=== PATIENT | male | born 1970 | race Caucasian/White ===

== ENCOUNTER 2018-10-15 10:03 | Outpatient (CLI) | payer MEDICAID, SELFPAY ==
[2018-10-15 14:39] LABS: CREATININE 0.91 mg/dL (0.70-1.30); Potassium 4.2 mmol/L (3.5-5.1)
== END 2018-10-15 10:23 ==
PROVIDERS: PCP Family Medicine; Visit Provider Family Medicine
DX: I10 Essential (primary) hypertension (principal)
CPT/HCPCS: 36415; 82565; 84132

== ENCOUNTER 2019-07-30 16:00 | Outpatient (REF) | payer MEDICAID, SELFPAY | END 2019-07-30 16:20 | LOC: LBN 16:00 | PROVIDERS: PCP Family Medicine; Visit Provider Family Medicine | DX: L02.11 Cutaneous abscess of neck (principal); L98.9 Disorder of the skin and subcutaneous tissue, unspecified | CPT/HCPCS: 87070; 87205 ==

== ENCOUNTER 2019-08-01 12:34 | Outpatient (REF) | payer MEDICAID, SELFPAY ==
--- NOTE | 2019-08-01 11:55 | SKI_PTH ---
PATIENT: Tyler Duffy LOC: [facility] U#:[id number] AGE/SX: 48/M ROOM: RE08/01/[address]: GRIS Buckley : 1970 BED: DIS: 08/01/2019 SPEC #: [id number] RECD: 08/01/19 12:39 STATUS: SEAN REQ #: [id number] ROSALIA: 08/01/19 11:[address]: Sierra Franco DEPT: Surgical Specimen RECD BY: Maeve Hernandez ENTERED: 08/01/19 12:40 SP TYPE: BRENT MADDOX DR: Hipolito Vela MD Tissues: 1 - SKIN BIOPSY(SHAVE/PUNCH) Procedures: GROSS AND MICRO LEVEL 4 SPECIAL STAIN 1 Comments: [id number]
== END 2019-08-01 12:54 ==
LOC: LBN 12:34
PROVIDERS: PCP Family Medicine; Visit Provider Physical Therapy Assistant
DX: L98.8 Other specified disorders of the skin and subcutaneous tissue (principal); R22.1 Localized swelling, mass and lump, neck
CPT/HCPCS: 88305; 87070; 87205; 88312

== ENCOUNTER 2019-08-15 11:31 | Outpatient (CLI) | payer MEDICAID, SELFPAY ==
--- NOTE | 2019-08-15 08:50 | DI.RAD_ITS ---
EXAM: XR KNEE LT 3V AP,LAT,NIKOLAI CLINICAL HISTORY: PAIN TECHNIQUE: COMPARISON: No exams were available for comparison FINDINGS: Three views were obtained. There is prominent enthesophyte of the superior pole of the patella. No other bony abnormality seen. No gross joint effusion seen. Cartilaginous joint spaces appear fairly well maintained. IMPRESSION:
== END 2019-08-15 11:51 ==
PROVIDERS: PCP Family Medicine; Visit Provider Student in an Organized Health Care Education/Training Program
DX: M25.562 Pain in left knee (principal); S89.92XA Unspecified injury of left lower leg, initial encounter; X58.XXXA Exposure to other specified factors, initial encounter
CPT/HCPCS: 73562

== ENCOUNTER 2019-08-19 06:25 | Day surgery (SDC) | payer MEDICAID, SELFPAY ==
[2019-08-19 06:28] VITALS: BP 146/94; PULSE 80; RESP 16; TEMP 36.5; O2SAT 94
[2019-08-19] MEDS: Lactated Ringers 1,000 ML 80 ML IV (07:04)
--- NOTE | 2019-08-19 07:25 | PDOC.DSDIS_ITS ---
Discharge Plan Disposition Patient Disposition: HOME Condition: Good Discharge Details Reason For Visit: (L) KNEE MMT Attending Provider: Basim Grigsby Primary Care Provider: Hipolito Vela Home Meds and New Rx's Prescriptions: New acetaminophen 500 mg tablet 1,000 mg PO Q8H PRN (Reason: pain) Qty: 60 RF: 3 ibuprofen 600 mg tablet 600 mg PO TID PRNQty: 60 RF: 3 oxycodone 5 mg tablet 5 mg PO Q6H PRN PRNQty: 12 RF: 0 Continued sildenafil (pulm.hypertension) 20 mg tablet 20 - 100 mg PO DAILY PRN (Reason: sexual activity) Qty: 30 RF: 5 diltiazem HCl 120 mg capsule,extended release 24hr 120 mg PO DAILY Qty: 90 RF: 3 citalopram 40 mg tablet 40 mg PO DAILY Qty: 90 RF: 3 Discharge Instructions Stand Alone Forms: [facility] Knee Arthroscopy Referrals: Basim Grigsby MD [ [facility] STAFF PHYSICIAN] - Equipment/Supplies: Partial Weight Bearing Crutches Activity:: Activity as Tolerated Remove Dressings/Wound Care:: 72 hours Shower/Bathe:: 72 hours Diet:: As Tolerated Discharge Orders Discharge Orders: Discharge Order (Routine); Ordered 08/19/19 Ordered By: Basim Grigsby DS: Diagnosis Discharge Diagnosis (1) Internal derangement of left knee: Status: Acute
[2019-08-19] MEDS: ceFAZolin 2 GM/50 ML BAG IVPB (07:26)
[2019-08-19] MEDS: EPINEPHrine 1 MG/ML AMP pres-free (07:48)
[2019-08-19] MEDS: Bupivacaine 0.5% Pres-Free 30 ML VIAL (08:16)
[2019-08-19] MEDS: methylPREDNISolone ACETATE 80 MG/ML VIAL (08:16)
[2019-08-19 08:26] VITALS: BP 120/67; PULSE 73; RESP 19; TEMP 36.7; O2SAT 99
[2019-08-19 08:30] VITALS: BP 121/78; PULSE 75; RESP 20; TEMP 36.7; O2SAT 99
[2019-08-19 08:35] VITALS: BP 126/79; PULSE 78; RESP 20; TEMP 36.7; O2SAT 99
[2019-08-19] MEDS: Ketorolac 30 MG/ML VIAL IVP (08:44)
[2019-08-19 08:50] VITALS: BP 134/87; PULSE 81; RESP 17; TEMP 37; O2SAT 96
[2019-08-19] MEDS: oxyCODONE 5 MG TAB PO (09:22)
[2019-08-19 09:55] VITALS: BP 141/89; PULSE 69; RESP 18; TEMP 36.2; O2SAT 95
--- NOTE | 2019-08-20 07:50 | W.PM.OP ---
Date of service: 08/19/19 Time of Service: 08:50 Operative Note Operative Note DATE OF PROCEDURE: 08/19/19 PRE-OP DIAGNOSIS: Left Knee Medial Meniscus Tear POST-OP DIAGNOSIS: other (Left Knee Medial Meniscus and Lateral Meniscus Tear) PROCEDURE: Left Knee Arthroscopic Medial and Lateral Partial Menisectomies SURGEON: Basim Grigsby ANESTHESIA: GETA ESTIMATED BLOOD LOSS: 5 PATHOLOGY: none sent COMPLICATIONS: None Patient was transported to: PACU Patient's condition: stable Indications: I have seen Brock in clinic for symptoms of a meniscus tear. This was confirmed based on history and exam findings. Nonoperative measures were exhausted but disability and pain persisted. I discussed knee arthroscopy with meniscal intervention with the patient. I reviewed the risks of the procedure to include, but not limited to, bleeding, infection, pain, stiffness, damage to nerves or vessels, recurrence, blood clot. Despite these risks, the patient elected to proceed. Findings: A diagnostic arthroscopy was performed with the following findings: Suprapatellar Pouch: No significant inflammation, No loose bodies Medial Compartment: Complex medial meniscal tear, Intact meniscal root, No significant chondromalacia or signs of arthritis, No loose bodies Notch: ACL and PCL were intact Lateral Compartment: Fraying of the underside of the posterior horn, Intact meniscal root, No significant chondromalacia or signs of arthritis, No loose bodies Patellofemoral Compartment: Mild Grade I chondromalacia, No apparent patellar maltracking Procedure Description: Brock was greeted in the preoperative holding area where the correct side was identified and marked. The consent was reviewed with the patient and signed. The history and physical was updated. All questions were answered. Brock was taken back to the operating room. The patient was placed into the supine position on the operating room table. A nonsterile tourniquet was placed high onto the leg but not used. All bony prominences were well padded. Prophylactic antibiotics in the form of Cefazolin were administered. The left leg was then prepped with Chloraprep and draped in a standard fashion with stockinette and extremity drape. A timeout to confirm correct identity, side and site, procedure, allergies, anesthesia, and medical concerns was performed. The leg was placed into a pneumatic leg hess, SPIDER2. A standard lateral portal was made at the lateral border of the patella tendon in line with the inferior pole of the patella, soft spot. The skin and deep tissue was incised sharply and the blunt trochar was inserted atraumatically. A diagnostic arthroscopy was performed and the findings are listed above. The suprapatellar pouch had no significant inflammatory change. The patellofemoral articulation showed only mild chondromalacia of the patella as well as good tracking. The lateral gutter had no loose bodies and the medial gutter had no loose bodies. The knee was brought into some valgus stress in extension to open the medial compartment. A medial portal was made, localized by a spinal needle. The portal was created with an #11 blade through skin and capsule under direct visualization avoiding any meniscal injury. A probe was then inserted into the medial compartment. The medial compartment was fully inspected. The chondral surface of the tibia showed no significant chondromalacia and the surface of the femur showed no significant chondromalacia. The medial meniscus had a complex tear involving the body and posterior horn and extending into the root, but not destabilizing the root. After evaluation, the meniscus was debrided down to a stable base using a series of biters and arthroscopic pipo. It was probed afterwards to confirm that the tear had been removed and the meniscus was stable. The notch was then inspected which showed an intact ACL and an intact PCL. The leg was then brought into a figure of 4 position. The lateral compartment was fully inspected with the arthroscope and a probe. The chondral surface of the lateral femur showed no significant chondromalacia. The chondral surface of the lateral tibia showed no significant chondromalacia. The lateral meniscus had some minor fraying on the undersurface of the posterior horn, at the level of the popliteus. After evaluation, the meniscus was debrided down to a stable base using arthroscopic shaver. It was probed afterwards to confirm that the tear had been removed and the meniscus was stable. The arthroscope was brought back into the suprapatellar pouch and the leg was in full extension. The knee was thoroughly irrigated with the arthroscopic fluid on high flow and pressure. Inflow was stopped and excess fluid was removed. The wounds were closed with 4-0 Nylon. They were dressed with Xeroform, 4x4 gauze, ABD pad, Kerlix and an CONNIE wrap. A cryo-cuff was applied. The patient tolerated the procedure well and was returned to the Same Day Surgery area in a stable condition suffering no known complication.
== END 2019-08-19 10:21 | disposition home or self-care (01) ==
PROVIDERS: PCP Family Medicine; Visit Provider Student in an Organized Health Care Education/Training Program
PROC: (CPT 29870; principal; 2019-08-19 07:30)
DX: S83.232A Complex tear of medial meniscus, current injury, left knee, initial encounter (principal); S83.282A Other tear of lateral meniscus, current injury, left knee, initial encounter; X50.0XXA Overexertion from strenuous movement or load, initial encounter; M94.262 Chondromalacia, left knee; I10 Essential (primary) hypertension
CPT/HCPCS: 29880; E0114; J0171; J0690; J1040; J1885; J2001; J2405; J2704

== ENCOUNTER 2019-11-06 12:03 | Emergency (ER) | payer MEDICAID, SELFPAY ==
[2019-11-06 12:06] VITALS: BP 154/92; PULSE 96; RESP 15; TEMP 37; O2SAT 96
--- NOTE | 2019-11-06 12:10 | ED.GENADUL_ITS ---
Discharge Plan Disposition Patient Disposition: HOME Condition: Good Discharge Details Chief Complaint: Vascular Clinical Impression: Bruise Primary Care Provider: Hipolito Vela ED Provider: Waldo Atkinson Home Meds and New Rx's Prescriptions: Continued sildenafil (pulm.hypertension) 20 mg tablet 20 - 100 mg PO DAILY PRN (Reason: sexual activity) Qty: 30 RF: 5 diltiazem HCl 120 mg capsule,extended release 24hr 120 mg PO DAILY Qty: 90 RF: 3 citalopram 40 mg tablet 40 mg PO DAILY Qty: 90 RF: 3 acetaminophen 500 mg tablet 1,000 mg PO Q8H PRN (Reason: pain) Qty: 60 RF: 3 ibuprofen 600 mg tablet 600 mg PO TID PRNQty: 60 RF: 3 oxycodone 5 mg tablet 5 mg PO Q6H PRN PRNQty: 12 RF: 0 Discharge Instructions Instructions: Contusion in Adults (ED) Additional Instructions: At this time there is no evidence of blood clot in your leg. I suspect that you might have hit it lightly at some point and this caused the bruising. This will likely go away with time. If you notice any worsening of your symptoms, or any new symptoms such as swelling, pain, vomiting, diarrhea, fever, chills, shortness of breath, chest pain, numbness, weakness, or fainting , please return immediately to the emergency department for reevaluation. Please follow up with your primary care provider as soon as possible for reassessment and reevaluation. As always, it was a pleasure participating in your medical care today. Referrals: Hipolito Vela [Primary Care Provider] - Medical Decision Making This is a 49-year-old male who presents today for evaluation of right lower extremity bruising. He states that for the last 2 to 3 days he has had some mild bruising on the medial aspect of his right knee. He has had no pain in this area. He does not recall hitting it. He does have some known varicose veins. He has had no associated chest pain or new shortness of breath. He denies any hemoptysis. He denies any pleuritic chest pain. He denies any pain in the calf or knee. He denies any unilateral swelling. He states that his was concerned that this may be a DVT, and came in for further evaluation. Patient denies any other complaints or modifying factors at this time. He denies any history of DVT or PE. Denies DVT risk factors such as recent long car rides, immobilization, recent surgery, prior history of DVT or PE, family history of PE or DVT, morbid obesity, exogenous estrogen and smoking, hemoptysis, history of cancer. Physical exam demonstrates mild bruising on the medial aspect of his right knee, there is notable varicosities in this area as well. No redness warmth or unilateral swelling. No symptoms suggestive of cellulitis, petechiae, necrotizing fasciitis or other abnormality. No osseous pain whatsoever for movement or palpation of the knee. Signs and symptoms appear clinically consistent with mild bruising likely secondary to an unknown bump or trauma. Out of an abundance of precaution we will get an ultrasound of the right lower extremity to rule out superficial phlebitis or DVT. Patient states he does have a history of previous phlebitis in the past. With no chest pain shortness of breath or other respiratory symptoms, no indication for further radiographic imaging of the chest or work-up. Symptoms are inconsistent with pulmonary embolism at this time. 1:33 PM Ultrasound results per radiology show no evidence of DVT. Signs and symptoms clinically consistent with mild contusion, and inconsistent with thrombophlebitis, blood clot, or bleeding diatheses. At this time feel he can be safely discharged home with close follow-up. Discussed red flags which return. I have extensively reviewed the treatment plan and discharge instructions with the patient. I have addressed all patient concerns at this time. The patient was made aware of what symptoms to monitor for that would warrant a return to the emergency department. Discussed the plan with the patient, they demonstrate verbal understanding and agreement with our assessment and plan at this time. IMPRESSION: Negative right lower extremity ultrasound. No evidence of DVT or superficial thrombophlebitis.. HPI General Date/Time Provider Initiated Documentation: 11/06/19 12:04 . HPI Narrative: This is a 49-year-old male who presents today for evaluation of right lower extremity bruising. He states that for the last 2 to 3 days he has had some mild bruising on the medial aspect of his right knee. He has had no pain in this area. He does not recall hitting it. He does have some known varicose veins. He has had no associated chest pain or new shortness of breath. He denies any hemoptysis. He denies any pleuritic chest pain. He denies any pain in the calf or knee. He denies any unilateral swelling. He states that his was concerned that this may be a DVT, and came in for further evaluation. Patient denies any other complaints or modifying factors at this time. He denies any history of DVT or PE. Denies DVT risk factors such as recent long car rides, immobilization, recent surgery, prior history of DVT or PE, family history of PE or DVT, morbid obesity, exogenous estrogen and smoking, hemoptysis, history of cancer. Related Data Home Medications Medication Instructions Recorded Confirmed citalopram 40 mg tablet 40 mg PO DAILY #90 tab 01/20/19 11/06/19 sildenafil (pulm.hypertension) 20 20 - 100 mg PO DAILY PRN #30 tab 02/12/19 11/06/19 mg tablet diltiazem HCl 120 mg 120 mg PO DAILY #90 cap 03/25/19 11/06/19 capsule,extended release 24 hr acetaminophen 1,000 mg PO Q8H PRN #60 tab 08/19/19 11/06/19 ibuprofen 600 mg PO TID PRN #60 tab 08/19/19 11/06/19 oxycodone 5 mg PO Q6H PRN PRN #12 tab 08/19/19 11/06/19 Previous Rx's Medication Instructions Recorded citalopram 40 mg tablet 40 mg PO DAILY #90 tab 01/20/19 sildenafil (pulm.hypertension) 20 20 - 100 mg PO DAILY PRN #30 tab 02/12/19 mg tablet diltiazem HCl 120 mg 120 mg PO DAILY #90 cap 03/25/19 capsule,extended release 24 hr acetaminophen 1,000 mg PO Q8H PRN #60 tab 08/19/19 ibuprofen 600 mg PO TID PRN #60 tab 08/19/19 oxycodone 5 mg PO Q6H PRN PRN #12 tab 08/19/19 Allergies Allergy/AdvReac Type Severity Reaction Status Date / Time mirtazapine AdvReac Severe PROFOUND Verified 11/06/19 12:11 BRADYCARDIA General Stated Complaint: Vascular BEVERLY: 3 Review of Systems All systems reviewed & are unremarkable except as noted in HPI and below PFSH Medical History (Updated 11/06/19 @ 13:32 by Waldo Atkinson DO) Depressed bipolar disorder Essential hypertension Knee pain, left (Resolved) Schizophrenia Skin lesion of neck (Acute) Surgical History (Updated 08/29/19 @ 18:47 by Nidia Berman) History of local excision of skin lesion (Acute) left side of neck Jul 2019 Incision, Tendon Sheath right rotator cuff repair and biceps tendosis. Removal of foreign body from eye Status post arthroscopy of left knee (Acute 08/19/19) Status post medial and lateral partial meniscectomies UPPP (Uvulopalatopharyngoplasty) Social History Smoking/Tobacco Use Status: Current every day Tobacco Type: smokeless tobacco Quit status: has quit before Second Hand Exposure: Yes Alcohol Intake: current Alcohol Intake frequency: a few times a week Alcohol type: beer Drug use: Never Substance use type: does not use Caregiver/Support person: No Household members: spouse and children Housing: house Communication Needs: None Do you need help understanding health information?: Never Pets and animals: Yes Pets and animals: dog(s) Sexually active: Yes Do you think of yourself as: straight/heterosexual Current gender identity: male What is your relationship status?: How often do you talk on the phone with friends or family?: three or more times per week How often do you get together with friends or relatives?: once per week How often do you attend baptist or sikh services?: decline to answer Do you belong to any clubs or organized social groups?: no Panel score (0-1 are the most socially isolated patients): 2 What type of physical activity do you participate in: none Gypsy/Scientology: Gnosticism Special gypsy needs: No Seatbelt use: never Helmet use: No Drive intox 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 3.ENT: Atraumatic external nose and ears. Moist MM. Neck: Symmetric, trachea midline, No thyromegaly. 4.CVS: +S1/S2, No murmurs or gallops. Peripheral pulses 2+ and equal in all extremities. Brisk capillary refill in all extremities. 5.RESP: Unlabored respiratory effort. Clear to auscultation bilaterally. No wheezes rales or rhonchi 6.GI: Soft, Nontender/Nondistended, No hepatosplenomegaly. No guarding or rebound. 7.MSK: Normocephalic/Atraumatic, Extremities w/o deformity or ttp No cyanosis or clubbing, Normal movement of all extremitie. There is evidence of mild varicose veins on the patient's right lower extremity, primarily centralized around the right knee. There is minimal bruising, no evidence of petechiae. No redness or warmth suggestive of infection. No swelling or pitting edema. Calves are equal and symmetric in circumference. 8.Skin: Warm, Dry. No rashes or lesions. 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 Sensation grossly intact, no focal neurologic deficits. 10.Psych: (AAO) x3. Appropriate mood and affect Course Vital Signs Vital signs: Vital Signs Temperature 37 C 11/06/19 12:06 Pulse 96 H 11/06/19 12:06 Respiratory Rate 15 11/06/19 12:06 Blood Pressure 154/92 H 11/06/19 12:06 Pulse Oximetry 96 11/06/19 12:06 Temperature 37 C 11/06/19 12:06 Temperature Source Temporal Artery Scan 11/06/19 12:06 Pulse 96 H 11/06/19 12:06 Respiratory Rate 15 11/06/19 12:06 Blood Pressure 154/92 H 11/06/19 12:06 Blood Pressure Position Sitting 11/06/19 12:06 Pulse Oximetry 96 11/06/19 12:06 Oxygen Delivery Method Room Air 11/06/19 12:06 Oxygen Flow Rate 0 11/06/19 12:06 Pain Level 2 11/06/19 12:06
[2019-11-06 12:12] VITALS: RESP 16
--- NOTE | 2019-11-06 13:05 | DI.US_ITS ---
EXAM: US LOWER EXTREMITY VENOUS RT CLINICAL HISTORY: bruising, r/o DVT. TECHNIQUE: Right lower extremity venous ultrasound performed using grayscale, color-flow, and spectr al Doppler analysis. COMPARISON: No exams were available for comparison FINDINGS: The right common femoral, femoral and popliteal veins demonstrate normal compressibility, augmentatio n, and color Doppler. The posterior tibial veins are patent. No saphenous vein thrombosis or other s uperficial venous thrombosis is seen. There are tortuous superficial vessels in the proximal, medial lower leg in the area of the bruising. No hematoma or Mena's cyst is seen. IMPRESSION: Negative right lower extremity ultrasound. No evidence of DVT or superficial thrombophlebitis.. DATA REPOSITORY:
[2019-11-06 13:41] VITALS: BP 157/99; PULSE 91; RESP 16; TEMP 36.8; O2SAT 97
== END 2019-11-06 13:44 | disposition home or self-care (01) ==
PROVIDERS: Emergency Provider Student in an Organized Health Care Education/Training Program; PCP Family Medicine
DX: S80.11XA Contusion of right lower leg, initial encounter (principal); X58.XXXA Exposure to other specified factors, initial encounter; I83.91 Asymptomatic varicose veins of right lower extremity; I10 Essential (primary) hypertension
CPT/HCPCS: 99284; 93971

== ENCOUNTER 2020-05-20 11:15 | Emergency (ER) | payer MEDICAID, SELFPAY ==
[2020-05-20 11:20] VITALS: BP 162/99; PULSE 98; RESP 20; TEMP 36.8; O2SAT 97
--- NOTE | 2020-05-20 11:26 | ED.GENADUL_ITS ---
Discharge Plan Disposition Patient Disposition: HOME Discharge Details Clinical Impression: Leg pain Primary Care Provider: Hipolito Vela ED Provider: Eligio Granado Home Meds and New Rx's Prescriptions: Continued diltiazem HCl 120 mg capsule,extended release 24hr 120 mg PO DAILY Qty: 90 RF: 3 sildenafil (pulm.hypertension) 20 mg tablet 20 - 100 mg PO DAILY PRN (Reason: sexual activity) Qty: 30 RF: 5 citalopram 40 mg tablet 40 mg PO DAILY Qty: 90 RF: 3 acetaminophen 500 mg tablet 1,000 mg PO Q8H PRN (Reason: pain) Qty: 60 RF: 3 ibuprofen 600 mg tablet 600 mg PO TID PRNQty: 60 RF: 3 Discharge Instructions Instructions: Leg Pain (ED) Additional Instructions: Ultrasound and x-ray are unremarkable. Please watch for new or worsening symptoms and return to the ER for any concerns. Rest, elevate, cool compresses every 2 hours for 20 minutes. [id number] medications such as Tylenol and/or Motrin as directed for discomfort. You may also benefit from wearing an Jean Claude wrap or compression stockings. I do recommend reaching out your primary care provider later today or tomorrow for prompt outpatient reevaluation. Medical Decision Making 49-year-old gentleman presents with atraumatic left lower leg pain. There is no erythema, warmth, ecchymosis. He is afebrile. This is not with any joint. No clinical suspicion of gout, cellulitis, or deformity. This appears to be primarily along the anterior aspect, less likely DVT. Given his pain is atraumatic we discussed options such as x-ray and ultrasound. I do not believe that laboratory values will be of any value here. Patient is agreeable to this plan. Clinically this appears to be more soft tissue swelling-injury. X-ray of left tib-fib read by radiology is unremarkable. Ultrasound of the left lower extremity unremarkable per radiology. Patient made aware of the imaging findings. He is relieved and has no additional questions or concerns. We discussed resting, elevating, cool compresses, [id number] Tylenol and/or Motrin. We also discussed wrapping with an Jean Claude wrap or using compression stockings to help with the mild swelling. He was encouraged to return to the ER for new or worsening symptoms, otherwise reach out to his primary care provider in the next 24 hours for outpatient reevaluation. Medical Records Medical records reviewed: Yes I reviewed the patient's medical records. HPI General Mode of arrival: ambulatory . Date/Time Provider Initiated Documentation: 05/20/20 11:15 . Limitations to Documentation: no limitations . Information obtained by: patient . HPI Narrative: This is a 49-year-old gentleman who reports past medical history that includes bipolar disorder, hypertension, schizophrenia, presenting to the ER today reporting left lower higgins pain for the past 3 to 4 days. 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 He reports the area has had some swelling, typically worse after a full day of work. Denies any erythema, warmth, chest pain, shortness of breath, numbness, tingling, weakness. Patient has not taken any medication for his discomfort. Initially thought he just pulled a muscle but because it has not gone away yet, his brought up the idea that this could be a blood clot. Patient denies history of DVT or PE. Pain is mild at rest but worse with movement or bearing weight. Related Data Home Medications Medication Instructions Recorded Confirmed diltiazem HCl 120 mg 120 mg PO DAILY #90 cap 03/25/19 05/20/20 capsule,extended release 24 hr acetaminophen 1,000 mg PO Q8H PRN #60 tab 08/19/19 05/20/20 ibuprofen 600 mg PO TID PRN #60 tab 08/19/19 05/20/20 sildenafil (pulm.hypertension) 20 20 - 100 mg PO DAILY PRN #30 tab 12/26/19 05/20/20 mg tablet citalopram 40 mg tablet 40 mg PO DAILY #90 tab 02/10/20 05/20/20 Previous Rx's Medication Instructions Recorded diltiazem HCl 120 mg 120 mg PO DAILY #90 cap 03/25/19 capsule,extended release 24 hr acetaminophen 1,000 mg PO Q8H PRN #60 tab 08/19/19 ibuprofen 600 mg PO TID PRN #60 tab 08/19/19 sildenafil (pulm.hypertension) 20 20 - 100 mg PO DAILY PRN #30 tab 12/26/19 mg tablet citalopram 40 mg tablet 40 mg PO DAILY #90 tab 02/10/20 Allergies Allergy/AdvReac Type Severity Reaction Status Date / Time mirtazapine AdvReac Severe PROFOUND Verified 05/20/20 11:22 BRADYCARDIA General Stated Complaint: Orthopedic BEVERLY: 3 Review of Systems Constitutional Constitutional: Denies fever(s) and Denies weakness Cardiovascular Cardiovascular: Denies chest pain and Denies dyspnea Respiratory Respiratory: Denies cough and Denies dyspnea Musculoskeletal Musculoskeletal: Denies numbness and Denies tingling Integumentary/Breasts Skin/Breast: Denies erythema and Denies rash Neurologic Neurologic: Denies numbness, Denies tingling and Denies weakness [facility] Medical History Depressed bipolar disorder Essential hypertension Knee pain, left Schizophrenia Skin lesion of neck Surgical History History of local excision of skin lesion left side of neck Jul 2019 Incision, Tendon Sheath right rotator cuff repair and biceps tendosis. Removal of foreign body from eye Status post arthroscopy of left knee (08/19/19) Status post medial and lateral partial meniscectomies UPPP (Uvulopalatopharyngoplasty) Family History Mother Alcohol abuse Father Depression Sister No problems noted. Sister Alcohol abuse Maternal Grandfather Alcohol abuse Paternal Grandfather No problems noted. Maternal Grandmother Diabetes Alcohol abuse Paternal Grandmother No problems noted. Social History Smoking/Tobacco Use Status: Current every day Tobacco Type: smokeless tobacco Quit status: has quit before Second Hand Exposure: Yes Smoking risk assessment performed?: Yes Alcohol Intake: current Alcohol Intake frequency: a few times a week Alcohol type: beer Drug use: Never Substance use type: does not use Caregiver/Support person: No Household members: spouse and children Housing: house Communication Needs: None Do you need help understanding health information?: Never Pets and animals: Yes Pets and animals: dog(s) Sexually active: Yes Do you think of yourself as: straight/heterosexual Current gender identity: male What is your relationship status?: How often do you talk on the phone with friends or family?: three or more times per week How often do you get together with friends or relatives?: once per week How often do you attend mormonism or oriental orthodox services?: decline to answer Do you belong to any clubs or organized social groups?: no Panel score (0-1 are the most socially isolated patients): 2 What type of physical activity do you participate in: none Gypsy/Mandaeism: Religion Special gypsy needs: No Seatbelt use: never Helmet use: No Drive intox or ride w/intox 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 Do you feel safe at home: Yes Do you feel safe in your relationship?: Yes Exam Const General: cooperative, healthy appearing, comfortable and no acute distress Orientation: alert and awake [facility] Head: normal to inspection, normocephalic and atraumatic Mouth: moist mucous membranes Eyes Conjunctivae: conjunctivae normal Neck Neck: normal visual inspection, trachea midline and supple Resp Effort & Inspection: normal respiratory effort and able to speak in complete sentences Auscultation: clear to auscultation bilaterally Cardio Rate: regular rate Rhythm: regular rhythm Skin General skin exam: no rashes or lesions noted Neuro General: patient alert, patient awake, moves all extremities and no focal motor deficits Gait: normal gait Motor: muscle tone normal throughout and strength 5/5 throughout Sensory Exam: no sensory deficits noted Extrem General: full ROM, capillary refill normal, no calf tenderness and other (Negative Homans' sign bilaterally) Right lower extremity: normal to inspection, full ROM and normal capillary refill Left lower extremity: normal capillary refill Upper/lower leg/hip images: 1. Mild swelling and tenderness. No erythema, ecchymosis. Noncircumferential. Skin is intact. Without warmth, induration, fluctuance. Neuro, vascular, tendon intact. Normal pedal pulse. Normal capillary refill Psych Appearance: grossly normal Mental Status: mental status grossly normal Course Vital Signs Vital signs: Vital Signs Temperature 36.8 C 05/20/20 11:20 Pulse 98 H 05/20/20 11:20 Respiratory Rate 20 05/20/20 11:20 Blood Pressure 162/99 H 05/20/20 11:20 Pulse Oximetry 97 05/20/20 11:20 Temperature 36.8 C 05/20/20 11:20 Temperature Source Temporal Artery Scan 05/20/20 11:20 Pulse 98 H 05/20/20 11:20 Respiratory Rate 20 05/20/20 11:20 Blood Pressure 162/99 H 05/20/20 11:20 Blood Pressure Position Sitting 05/20/20 11:20 Pulse Oximetry 97 05/20/20 11:20 Oxygen Delivery Method Room Air 05/20/20 11:20 Oxygen Flow Rate 0 05/20/20 11:20 Pain Level 5 05/20/20 11:20
--- NOTE | 2020-05-20 11:30 | DI.RAD_ITS ---
EXAM: XR TIB/FIB LT CLINICAL HISTORY: pain/swelling, no injuy. TECHNIQUE: 2D digital imaging was performed COMPARISON: No exams were available for comparison FINDINGS: BONES: No acute fracture is present. No bony destructive lesion is seen. Visualized portion of knee a nd ankle joints are unremarkable. SOFT TISSUE: Normal. IMPRESSION: Unremarkable radiographs of the left tibia and fibula. DATA REPOSITORY: RADIATION DOSE DELIVERED:
--- NOTE | 2020-05-20 11:39 | DI.US_ITS ---
EXAM: US LOWER EXTREMITY VENOUS LT CLINICAL HISTORY: pain/swelling/no injury TECHNIQUE: Left lower extremity venous ultrasound performed using grayscale, color-flow, and spectra l Doppler analysis. COMPARISON: No exams were available for comparison FINDINGS: The left common femoral, femoral and popliteal veins demonstrate normal compressibility, augmentation , and color Doppler. The posterior tibial veins are patent. The saphenofemoral junction is unremarka ble. There is no evidence of a Mena cyst. The soft tissues are unremarkable. IMPRESSION: No DVT. DATA REPOSITORY:
[2020-05-20 13:04] VITALS: BP 157/103; PULSE 68; RESP 18; TEMP 36.7; O2SAT 98
== END 2020-05-20 13:18 | disposition home or self-care (01) ==
PROVIDERS: Emergency Provider Physician Assistant; PCP Family Medicine
DX: M79.662 Pain in left lower leg (principal); I10 Essential (primary) hypertension
CPT/HCPCS: 99284; 73590; 93971

== ENCOUNTER 2020-10-13 10:25 | Outpatient (REF) | payer MEDICAID, SELFPAY ==
[2020-10-13 13:48] LABS: Calculated LDL 80 mg/dL (<100); Cholesterol 147 mg/dL (<200); Glucose 97 mg/dL (74-106); HDL Cholesterol 47 mg/dL (40-60); Triglyceride 100 mg/dL (<150)
== END 2020-10-13 10:26 | disposition home or self-care (01) ==
LOC: LBN 10:25
PROVIDERS: PCP Family Medicine; Visit Provider Family Medicine
DX: E78.5 Hyperlipidemia, unspecified (principal); R73.9 Hyperglycemia, unspecified
CPT/HCPCS: 80061; 82947

== ENCOUNTER 2020-10-14 09:38 | Outpatient (CLI) | payer MEDICAID, SELFPAY ==
--- NOTE | 2020-10-14 10:45 | DI.RAD_ITS ---
EXAM: XR CERVICAL SPINE COMP 4-5V CLINICAL HISTORY: neck pain on rt side for one yEAR m54.2 cervicalgia. TECHNIQUE: 2D digital imaging was performed. COMPARISON: No exams were available for comparison FINDINGS: There is no evidence of fracture, listhesis, nor offset of the spinal laminar line. There is mild di sc space narrowing at C5-6 and C6-7 levels and anterior osteophytes at these 2 levels. On the obliqu e views there are bilateral Luschka joint osteophytes evident at C6-7. These are small-moderate size . No Luschka joint osteophytes at C5-6 level. No cervical ribs evident. No osseous lesions. IMPRESSION: Degenerative disc disease as described above. Also some facet arthropathy at C3-4 level. DATA REPOSITORY: RADIATION DOSE DELIVERED:
--- NOTE | 2020-10-14 10:45 | DI.RAD_ITS ---
EXAM: XR HIP RT COMPLETE AP PELVIS CLINICAL HISTORY: RT GROIN PAIN m25.551 pain in Rt hip. TECHNIQUE: 2D digital imaging was performed. COMPARISON: No exams were available for comparison FINDINGS: No evidence of pelvic fracture. No hip fracture. Osteophytic density seen off the superolateral asp ect of the right acetabulum measuring 9 x 8 millimeters probably nonunited apophysis. Bone density n ormal. No osseous lesions. No obvious osteoarthritic degenerative changes. Sign rib IMPRESSION: DATA REPOSITORY: RADIATION DOSE DELIVERED:
== END 2020-10-14 09:58 ==
PROVIDERS: PCP Family Medicine; Visit Provider Family Medicine
DX: M25.551 Pain in right hip (principal); M54.2 Cervicalgia; M50.322 Other cervical disc degeneration at C5-C6 level; M50.323 Other cervical disc degeneration at C6-C7 level
CPT/HCPCS: 72050; 73502

== ENCOUNTER 2021-05-30 02:53 | Outpatient (CLI) | payer MEDICAID, SELFPAY ==
[2021-05-30 13:13] LABS: Source Nasal/Nares
[2021-05-30 15:28] LABS: COVID-19 PCR Negative (Negative)
== END 2021-05-30 02:54 | disposition home or self-care (01) ==
LOC: LBO 02:54
PROVIDERS: PCP Family Medicine; Visit Provider Surgery
DX: Z20.822 Contact with and (suspected) exposure to COVID-19 (principal); Z01.818 Encounter for other preprocedural examination
CPT/HCPCS: 87635

== ENCOUNTER 2021-06-01 09:21 | Day surgery (SDC) | payer MEDICAID, SELFPAY ==
--- NOTE | 2021-06-01 06:47 | HPE_ITS ---
Date of service: 06/01/21 Time of Service: 10:26 Assessment and Plan Assessment and plan (1) Screening for colon cancer: Status: Acute Assessment and plan: The patient is here for Colonoscopy pre-op.He has no family history of colon cancer. He has not had any bowel habit changes. -Discussed colonoscopy bowel prep as well as the procedure. Discussed possible complications of the procedure to include bleeding, pain, perforation, missed small lesion/polyp, sore throat, aspiration and adverse reaction to the medications. Questions were answered to patient?s satisfaction. No guarantees were implied or given. I spent 30 minutes in reviewing the record, seeing the patient, providing patient education, answering patient's questions and documenting in the medical record. P// Colonoscopy under sedation History of Present Illness Narrative: 50 y/o male with history of HTN and depressive disorder presents for his first colonoscopy screening pre-op. He denies a family history of colon cancer. He denies any changes in bowel habits including bloody or black tarry stools, abdominal pain, diarrhea or constipation. He denies constitutional symptoms. Denies use of marijuana or any other recreational or illegal drugs. 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 He denies prior history or family history of adverse reactions or complications with anesthesia. The patient denies any history of stroke, [place], seizures, bleeding or clotting dis orders. He denies having any implanted metal in his body. There have been no changes in his health since he was seen in the office Review of Systems Cardiovascular Cardiovascular: Denies chest pain, Denies chest pain at rest, Denies irregular heart rhythm, Denies dyspnea and Denies dyspnea on exertion Respiratory Respiratory: Denies cough, Denies dyspnea and Denies dyspnea on exertion Gastrointestinal Gastrointestinal: Reports as per HPI Genitourinary Genitourinary: Denies dysuria, Denies urinary incontinence and Denies urinary urgency Endocrine Endocrine: Reports system reviewed and no additional complaints, except as documented Hematologic/Lymphatic Hematologic/Lymphatic: Denies easy bruising and Denies lymphadenopathy [facility] Active Problem List (Updated 06/01/21 @ 06:51 by Laura Mcnair MD) Schizophrenia (Chronic 09/11/07) Depressive disorder (Chronic 06/20/07) Depressed bipolar I disorder (Chronic 09/11/07) Essential hypertension with goal blood pressure less than 130/80 (Acute) Erectile 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 (Acute) Neck pain on right side (Acute) Hip pain, right (Acute) Screening for colon cancer (Acute) Bilateral carpal tunnel syndrome (Acute) Medical History (Updated 06/01/21 @ 06:51 by Laura Mcnair MD) Cardiac arrhythmia, unspecified (06/20/07) Carpal tunnel syndrome on left Complete tear of right rotator cuff (07/28/16) Contact dermatitis (06/20/07) Depressed bipolar disorder Essential hypertension Knee pain, left Medial epicondylitis, left elbow (05/25/17) Olecranon bursitis, left elbow (05/25/17) Schizophrenia Skin lesion of neck Sleep disturbance, unspecified (06/20/07) Umbilical hernia (05/22/13) Surgical History History of local excision of skin lesion left side of neck Jul 2019 Hx of shoulder surgery Incision, Tendon Sheath right rotator cuff repair and biceps tendosis. Removal of foreign body from eye Status post arthroscopy of left knee (08/19/19) Status post medial and lateral partial meniscectomies UPPP (Uvulopalatopharyngoplasty) Family History Mother Alcohol abuse Father Depression Sister No problems noted. Sister Alcohol abuse Maternal Grandfather Alcohol abuse Paternal Grandfather No problems noted. Maternal Grandmother Diabetes Alcohol abuse Paternal Grandmother No problems noted. Social History Smoking/Tobacco Use Status: Current every day Tobacco Type: cigarettes and smokeless tobacco Smokeless tobacco user: chewing tobacco Quit status: has quit before Second Hand Exposure: Yes Smoking risk assessment performed?: Yes Alcohol Intake: current Alcohol Intake frequency: a few times a week Alcohol type: beer Drug use: Never Substance use type: does not use Caregiver/Support person: No Household members: spouse and children Housing: house Communication Needs: None Do you need help understanding health information?: Never Pets and animals: Yes Pets and animals: dog(s) Sexually active: Yes Do you think of yourself as: straight/heterosexual Current gender identity: male What is your relationship status?: How often do you talk on the phone with friends or family?: three or more times per week How often do you get together with friends or relatives?: once per week How often do you attend shinto or muslim services?: 1-3 times per year Do you belong to any clubs or organized social groups?: no Panel score (0-1 are the most socially isolated patients): 2 What type of physical activity do you participate in: walking Duration: > 90 minutes/day Frequency: daily Gypsy/Mandaen: Confucianist Special gypsy needs: No Seatbelt use: never Helmet use: No Drive intox 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 Do you feel safe at home: Yes Do you feel safe in your relationship?: Yes Meds Allergies and Home Medications Allergies Allergy/AdvReac Type Severity Reaction Status Date / Time mirtazapine AdvReac Severe PROFOUND Verified 06/01/21 09:43 BRADYCARDIA Home Medications Medication Instructions Recorded Confirmed Type ibuprofen 600 mg PO TID PRN #60 tab 08/19/19 05/31/21 Rx diltiazem HCl 240 mg capsule,24 240 mg PO DAILY #90 cap 10/13/20 06/01/21 Rx hr,extended release citalopram 40 mg tablet 40 mg PO DAILY #90 tab 03/11/21 06/01/21 Rx sildenafil (pulm.hypertension) 20 20 - 100 mg PO DAILY PRN #30 tab 03/24/21 05/31/21 Rx mg tablet Exam Const General: healthy appearing and comfortable Resp Effort & Inspection: normal respiratory effort Auscultation: clear to auscultation bilaterally Cardio Rate: regular rate Rhythm: regular rhythm Heart Sounds: no click, no gallops and no murmurs
--- NOTE | 2021-06-01 06:51 | W.COLOREPORT ---
Colonoscopy Report Date of procedure: 06/01/21 Pre-op diagnosis general: Colon Cancer Screening Post-op diagnosis procedure note: same Procedure: Colonoscopy Surgeon: Laura Mcnair Anesthesia Type: General:No Airway Estimated blood loss (mL): 0 Pathology: none sent Complications: None Disposition: same day Indications: The patient is here for Colonoscopy pre-op.He has no family history of colon cancer. He has not had any bowel habit changes. -Discussed colonoscopy bowel prep as well as the procedure. Discussed possible complications of the procedure to include bleeding, pain, perforation, missed small lesion/polyp, sore throat, aspiration and adverse reaction to the medications. Questions were answered to patient?s satisfaction. No guarantees were implied or given. I spent 30 minutes in reviewing the record, seeing the patient, providing patient education, answering patient's questions and documenting in the medical record. P// Colonoscopy under sedation Prep: Miralax/Dulcolax Procedure Start Time: 10:34 Procedure End Time: 10:56 Retraction Time: 10 minutes Findings: Normal colon Procedure Description: After informed consent was obtained the patient was taken to the procedure room and placed in a left decubitous position. Monitors were applied and a time out was done. The patients name, date of , procedure, allergies to medications and metal in their body was reviewed. The patient was then sedated. Once sedated and comfortable a rectal exam was done. External exam was normal. Internal exam revealed a normal sphincter tone and no palpable masses. The prostate felt smooth. The scope was then introduced and retro-flexed. No internal hemorrhoids, polyps or masses were identified on retro-flexion. The scope was then advanced to the cecum without difficulty. The ileocecal vlave and appendiceal orifice were identified. The prep was adequate. The scope was then slowly retracted over 10 minutes back into the rectum. There were no polyps. There was no diverticulosis noted. The scope was removed and the patient was woken up and taken back to Same day surgery in stable condition. The patient tolerated the procedure well and there were no immediate complications. Follow up: The patient should follow up in 10 years unless they develop changes in bowel habits or other new gastrointestinal complaints.
--- NOTE | 2021-06-01 06:52 | W.PM.DSUDISC ---
Discharge Plan Disposition Patient Disposition: HOME Condition: Good Discharge Details Reason For Visit: Colonoscopy Attending Provider: Laura Mcnair Primary Care Provider: Hipolito Vela Home Meds and New Rx's Prescriptions: Continued diltiazem HCl 240 mg capsule,extended release 24 hr 240 mg PO DAILY Qty: 90 RF: 3 citalopram 40 mg tablet 40 mg PO DAILY Qty: 90 RF: 3 sildenafil (pulm.hypertension) 20 mg tablet 20 - 100 mg PO DAILY PRN (Reason: sexual activity) Qty: 30 RF: 5 ibuprofen 600 mg tablet 600 mg PO TID PRNQty: 60 RF: 3 Discharge Instructions Additional Instructions: Findings: Normal colonoscopy Follow up: 10 years Please call if you develop: fevers >101.5 Nausea or Vomiting Abdominal pain that is not transient Rectal bleeding that is more then a tbsp A hard abdomen and inability to pass gas DAY SURGERY UNIT POST ENDOSCOPY INSTRUCTIONS Instructions for everyone who is given Anesthesia: For your safety, please do the following for the next 24 Hours: a. Do not drive or operate dangerous equipment b. Do not drink alcohol beverages or use any recreational drugs for the first 24 hours or while taking pain medications. The medications in your body may have a reaction that can be dangerous. c. Do not make any important decisions or sign any important papers 1. Generally there are no restrictions on your activity after a day or so has gone by, but you may feel a bit fatigued for a few days. 2. After you arrive home you may have a light meal and return to a normal diet as you can tolerate it without feeling sick to your stomach. 3. After surgery, you may feel pain or discomfort. This should be only transient, but if it persists please contact your doctor. 4. If there are any questions regarding the findings of your procedure, please feel free to contact your doctor. 6. If you are unable to contact your doctor with a problem, contact the hospital at [phone]. 7. Continue all your regular medications unless directed otherwise. I understand the above instructions and have no questions. Signature of Patient or Responsible Adult Escort Date/Time Name of Responsible Adult Escort Signature of Nurse Date/Time Activity:: Activity as Tolerated Diet:: As Tolerated Discharge Orders Discharge Orders: Discharge Order (Routine); Ordered 06/01/21 Ordered By: Laura Mcnair DS: Diagnosis Discharge Diagnosis (1) Screening for colon cancer: Status: Acute
--- NOTE | 2021-06-01 07:27 | W.ANESPRE ---
General Info Date of Service Date Performed: 06/01/21 Height: 6 ft Weight: 119.862 kg Body Mass Index (BMI): 35.8 Surgical Procedure: Operation Date: 06/01/21 10:05 Proposed Procedures Side Surgeon p Aj Mcnair MD Meds Allergies and Home Medications Allergies Allergy/AdvReac Type Severity Reaction Status Date / Time mirtazapine AdvReac Severe PROFOUND Verified 06/01/21 09:43 BRADYCARDIA Home Medication Medication Instructions Recorded ibuprofen 600 mg PO TID PRN #60 tab 08/19/19 diltiazem HCl 240 mg capsule,24 240 mg PO DAILY #90 cap 10/13/20 hr,extended release citalopram 40 mg tablet 40 mg PO DAILY #90 tab 03/11/21 sildenafil (pulm.hypertension) 20 20 - 100 mg PO DAILY PRN #30 tab 03/24/21 mg tablet Current Visit Medications: Current Medications Generic Name Dose Route Start Last Admin Trade Name Freq PRN Reason Stop Dose Admin Hyoscyamine Sulfate 0.125 mg 06/01/21 06:52 Hyoscyamine 0.125 Mg Sl/Oral/Chew SL DIRECTED PRN Ringer's Solution 1,000 mls @ 80 mls/hr 06/01/21 06:00 IV 06/14/21 23:59 INFUSION SHAWNA IV Miscellaneous Supplies 1 each 06/01/21 06:00 Iv Access IV 06/14/21 23:59 DIRECTED SHAWNA Ondansetron HCl 4 mg 06/01/21 06:52 Ondansetron 4 Mg/2 Ml Vial IVP Q4H PRN PRN Nausea / Vomiting Sodium Chloride 0 ml 06/01/21 06:00 Normal Saline Flush 10 Ml Syr IV 06/14/21 23:59 PRN PRN Sodium Chloride 0 ml 06/01/21 06:00 Normal Saline 10 Ml Vial IJ 06/14/21 23:59 DIRECTED PRN Sterile Water 0 ml 06/01/21 06:00 Water,Injection,Sterile 10 Ml Vial IJ 06/14/21 23:59 DIRECTED PRN PFSH Active Problems Active Problems: Problem Status Onset Code Schizophrenia 09/11/07 F20.9 Depressive disorder 06/20/07 F32.9 Depressed bipolar I disorder 09/11/07 F31.9 Essential hypertension with goal blood pressure less than 130/80 I10 Erectile 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 N52.1 Neck pain on right side M54.2 Hip pain, right M25.551 Screening for colon cancer Z12.11 Bilateral carpal tunnel syndrome G56.03 Medical History Active Problem List (Updated 06/01/21 @ 06:51 by Laura Mcnair MD) Schizophrenia (Chronic 09/11/07) Depressive disorder (Chronic 06/20/07) Depressed bipolar I disorder (Chronic 09/11/07) Essential hypertension with goal blood pressure less than 130/80 (Acute) Erectile 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 (Acute) Neck pain on right side (Acute) Hip pain, right (Acute) Screening for colon cancer (Acute) Bilateral carpal tunnel syndrome (Acute) Medical History (Updated 06/01/21 @ 06:51 by Laura Mcnair MD) Cardiac arrhythmia, unspecified (06/20/07) Carpal tunnel syndrome on left Complete tear of right rotator cuff (07/28/16) Contact dermatitis (06/20/07) Depressed bipolar disorder Essential hypertension Knee pain, left Medial epicondylitis, left elbow (05/25/17) Olecranon bursitis, left elbow (05/25/17) Schizophrenia Skin lesion of neck Sleep disturbance, unspecified (06/20/07) Umbilical hernia (05/22/13) Surgical History Surgical History History of local excision of skin lesion left side of neck Jul 2019 Hx of shoulder surgery Incision, Tendon Sheath right rotator cuff repair and biceps tendosis. Removal of foreign body from eye Status post arthroscopy of left knee (08/19/19) Status post medial and lateral partial meniscectomies UPPP (Uvulopalatopharyngoplasty) Tobacco Smoking/Tobacco Use Status: Current every day Tobacco Type: smokeless tobacco Smokeless tobacco user: chewing tobacco Quit Status: has quit before Second hand exposure: Yes Alcohol Alcohol Intake: current Alcohol intake frequency: a few times a week Alcohol type: beer Substance Use Substance use: Never Substance use type: does not use Vital Signs and Lab Results Lab Results Blood Type / Crossmatch: No Data to Display Complete Blood Count: No Data to Display Complete Metabolic Panel: No Data to Display Liver Function Panel: No Data to Display Coagulation Panel: No Data to Display Cardiac Panel: No Data to Display Arterial Blood Gas: No Data to Display Venous Blood Gas: No Data to Display Pancreas Panel: No Data to Display Thyroid Panel: No Data to Display Infectious Disease: Coronavirus (COVID-19)(PCR) Negative (Negative) 05/30/21 10:12 05/30/21 Coronavirus 2019 Source Nasal/Nares 05/30/21 10:12 05/30/21 Blood Cultures: No Data to Display Toxicology Panel: No Data to Display Imaging and Studies Imaging and Studies Stress Test Summary: 1. Myocardial perfusion imaging: No myocardial perfusion defects noted. 2. The calculated left ventricular ejection fraction after stress: 55%. LV global systolic function is normal. No left ventricular regional motion abnormality. 3. Stress ECG conclusions: The stress ECG is negative. Patel treadmill score: 10. This score predicts a low risk of cardiac events. 4. Stress: The target heart rate was achieved. The heart rate response to stress is normal. There is a normal resting blood pressure with a hypertensive response to stress (peak SBP 256 mmHg). The patient experienced no chest pain during stress. Exercise capacity is average for age. Anesthesia Assessment and Plan Anesthesia History Personal History: No History of Anesthesia Complications Family History: No Family History of Anesthesia Complications Exercise Tolerance Exercise Tolerance: Metabolic Equivalents>4 Pertinent Negatives Pertinent Negatives: No Symptoms of GERD, No Major Pulmonary Symptoms or Complaints and No History of CVA/TIA Cardiac & Pulmonary Exam Cardiac Exam: Normal S1/S2 Heart Sounds Pulmonary Exam: Clear Bilateral Breath Sounds Implantable Cardiac Device Does patient have a Pacemaker or an ICD?: No Airway Exam Known Difficult Airway: No Mallampati Class: 1 Mouth Opening: Normal (> 3cm) Thyromental Distance: Greater than 3 cm Neck Range of Motion: Full ROM Neck Circumference: Normal Teeth Condition: Normal Dentition ASA Classification ASA Score: ASA 2 Emergency Case?: No NPO Status NPO Status: NPO Clears >2 hours, Solids >8 hours Anesthesia Plan Resuscitation Status: Full Code Anesthesia Technique: General Anesthesia Airway Planned: Natural Airway Monitors Used: Standard Monitors
[2021-06-01 09:46] VITALS: BP 157/99; PULSE 83; RESP 16; TEMP 36; O2SAT 98
[2021-06-01] MEDS: Lactated Ringers 1,000 ML 80 ML IV (10:10)
[2021-06-01 10:27] VITALS: BMI 35.8
[2021-06-01 11:06] VITALS: BP 121/69; PULSE 79; RESP 16; TEMP 36.2; O2SAT 96
--- NOTE | 2021-06-01 11:20 | W.ANESPOSTOP ---
Postoperative Evaluation Date, Time and Location Date Performed: 06/01/21 Time Performed: 11:06 Patient Location: Day Surgery Unit Vital Signs Most Recent Imported Vital Signs: Most Recent Vital Signs Temp Pulse Resp BP Pulse Ox 36.2 C L 79 16 121/69 96 06/01/21 11:06 06/01/21 11:06 06/01/21 11:06 06/01/21 11:06 06/01/21 11:06 Pain Score Most Recent Pain Score: Most Recent Pain Score Pain Level 0 06/01/21 11:06 Assessment Mental Status: Awake (Alert & Oriented to Patient Baseline) Airway and Respiratory Function: Patent airway with normal (patient baseline) respiratory exam Cardiovascular Function: Hemodynamically Stable Hydration Status: Adequately Hydrated Nausea & Vomiting: No Nausea or Vomiting Pain: Pt. Denies Any Pain Peripheral Nerve Block: Patient did not receive a nerve block
[2021-06-01 11:37] VITALS: BP 134/88; PULSE 63; RESP 16; TEMP 36.4; O2SAT 96
== END 2021-06-01 11:56 | disposition home or self-care (01) ==
LOC: SUR 09:22
PROVIDERS: PCP Family Medicine; Visit Provider Surgery
PROC: 0DJD8ZZ Inspection of Lower Intestinal Tract, Via Natural or Artificial Opening Endoscopic (ICD-10-PCS; CPT 45378; principal; 2021-06-01 10:00)
DX: Z12.11 Encounter for screening for malignant neoplasm of colon (principal); F32.A Depression, unspecified; I10 Essential (primary) hypertension
CPT/HCPCS: 45378; J2704

== ENCOUNTER 2021-07-18 01:26 | Outpatient (CLI) | payer MEDICAID, SELFPAY ==
[2021-07-18 11:33] LABS: Source Nasal/Nares
[2021-07-18 15:47] LABS: COVID-19 PCR Negative (Negative)
== END 2021-07-18 01:27 | disposition home or self-care (01) ==
LOC: LBO 01:26
PROVIDERS: PCP Family Medicine; Visit Provider Student in an Organized Health Care Education/Training Program
DX: Z20.822 Contact with and (suspected) exposure to COVID-19 (principal)
CPT/HCPCS: 87635

== ENCOUNTER 2021-07-20 07:22 | Day surgery (SDC) | payer MEDICAID, SELFPAY ==
[2021-07-20] VITALS (9 sets, daily range): BP systolic 116–148; BP diastolic 60–98; PULSE 65–80; RESP 16–20; TEMP 36.4–36.6; O2SAT 92–98; BMI 35.8
--- NOTE | 2021-07-20 07:25 | PDOC.DSDIS_ITS ---
Discharge Plan Disposition Patient Disposition: HOME Condition: Good Discharge Details Reason For Visit: Left carpal and cubital tunnel syndromes Attending Provider: Basim Grigsby Primary Care Provider: Hipolito Vela Home Meds and New Rx's Prescriptions: New hydrocodone-acetaminophen 5-325 mg tablet 1 tab PO Q6H PRN (Reason: severe pain) Qty: 6 RF: 0 acetaminophen 500 mg tablet 500 mg PO Q6H PRN (Reason: pain) Qty: 60 RF: 2 ibuprofen 600 mg tablet 600 mg PO TID PRN (Reason: pain) Qty: 60 RF: 0 Continued diltiazem HCl 240 mg capsule,extended release 24 hr 240 mg PO DAILY Qty: 90 RF: 3 citalopram 40 mg tablet 40 mg PO DAILY Qty: 90 RF: 3 sildenafil (pulm.hypertension) 20 mg tablet 20 - 100 mg PO DAILY PRN (Reason: sexual activity) Qty: 30 RF: 5 Discontinued ibuprofen 600 mg tablet 600 mg PO TID PRNQty: 60 RF: 3 Discharge Instructions Additional Instructions: Carpal and Cubital Tunnel Decompression Discharge Instructions Activity: You should stay in the sling for the first 2 weeks. You may come out of the sling for gentle motion and hygiene but should largely remain in the sling to allow the incision site to heal. Gentle motion of the elbow, hand, wrist, and fingers is okay and encouraged after the first few days, but no repetitive activities nor heavy lifting. You may apply ice. Medications: - You should take Tylenol and Ibuprofen around the clock. - You have been prescribed Hydrocodone for breakthrough pain. Dressings: - The initial surgical dressing should stay in place for 3 days. It may then be removed and kept clean and dry. You should cover with a light gauze dressing. - You may shower after 3 days and get the wound wet. Follow-up: 10 days Stand Alone Forms: Calista Cruz Tunnel Release Referrals: Basim Grigsby MD [ [facility] STAFF PHYSICIAN] - Equipment/Supplies: Sling Activity:: Elevate Remove Dressings/Wound Care:: 72 hours Shower/Bathe:: 72 hours Diet:: As Tolerated Discharge Orders Discharge Orders: Discharge Order (Routine); Ordered 07/20/21 Ordered By: Nidia Berman DS: Diagnosis Discharge Diagnosis (1) Left carpal tunnel syndrome: Status: Acute (2) Cubital tunnel syndrome on left: Status: Acute
--- NOTE | 2021-07-20 07:35 | W.ANESPRE ---
General Info Date of Service Date Performed: 07/20/21 Height: 6 ft Weight: 119.748 kg Body Mass Index (BMI): 35.8 Surgical Procedure: Operation Date: 07/20/21 09:55 Proposed Procedures Side Surgeon p Wrist ECTR, cubital tunnel decompression,poss. transposition Left Basim Grigsby MD Meds Allergies and Home Medications Allergies Allergy/AdvReac Type Severity Reaction Status Date / Time mirtazapine AdvReac Severe PROFOUND Verified 07/20/21 07:32 BRADYCARDIA Home Medication Medication Instructions Recorded diltiazem HCl 240 mg capsule,24 240 mg PO DAILY #90 cap 10/13/20 hr,extended release citalopram 40 mg tablet 40 mg PO DAILY #90 tab 03/11/21 sildenafil (pulm.hypertension) 20 20 - 100 mg PO DAILY PRN #30 tab 03/24/21 mg tablet acetaminophen 500 mg PO Q6H PRN #60 tab 07/20/21 hydrocodone-acetaminophen 1 tab PO Q6H PRN #6 tab 07/20/21 ibuprofen 600 mg PO TID PRN #60 tab 07/20/21 Current Visit Medications: Current Medications Generic Name Dose Route Start Last Admin Trade Name Freq PRN Reason Stop Dose Admin Acetaminophen 650 mg 07/20/21 07:25 Acetaminophen 325 Mg Tab PO Q4H PRN PRN Hydrocodone Bitart/Acetaminophen 0 tab 07/20/21 07:25 Hydrocodone 5/Acetaminophen 325 Tab PO Q3H PRN PRN Pain Ringer's Solution 1,000 mls @ 80 mls/hr 07/20/21 06:00 IV 08/18/21 23:59 INFUSION SHAWNA Cefazolin Sodium/Dextrose 2 gm in 50 mls @ 100 mls/hr 07/20/21 06:00 Ancef Duplex IVPB 08/18/21 23:59 PREOP SHAWNA IV Miscellaneous Supplies 1 each 07/20/21 06:00 Iv Access IV 08/18/21 23:59 DIRECTED SHAWNA Sodium Chloride 0 ml 07/20/21 06:00 Normal Saline Flush 10 Ml Syr IV 08/18/21 23:59 PRN PRN Sodium Chloride 0 ml 07/20/21 06:00 Normal Saline 10 Ml Vial IJ 08/18/21 23:59 DIRECTED PRN Sterile Water 0 ml 07/20/21 06:00 Water,Injection,Sterile 10 Ml Vial IJ 08/18/21 23:59 DIRECTED PRN PFSH Active Problems Active Problems: Problem Status Onset Code Left carpal tunnel syndrome G56.02 Normal colonoscopy ~05/2021 Cubital tunnel syndrome on left G56.22 Schizophrenia 09/11/07 F20.9 Depressive disorder 06/20/07 F32.9 Depressed bipolar I disorder 09/11/07 F31.9 Essential hypertension with goal blood pressure less than 130/80 I10 Erectile 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 N52.1 Neck pain on right side M54.2 Hip pain, right M25.551 Screening for colon cancer Z12.11 Bilateral carpal tunnel syndrome G56.03 Medical History Medical History Cardiac arrhythmia, unspecified (06/20/07) Carpal tunnel syndrome on left Complete tear of right rotator cuff (07/28/16) Contact dermatitis (06/20/07) Depressed bipolar disorder Essential hypertension Knee pain, left Medial epicondylitis, left elbow (05/25/17) Olecranon bursitis, left elbow (05/25/17) Schizophrenia Skin lesion of neck Sleep disturbance, unspecified (06/20/07) Umbilical hernia (05/22/13) Surgical History Surgical History History of colonoscopy (~05/2021) History of local excision of skin lesion left side of neck Jul 2019 Hx of shoulder surgery Incision, Tendon Sheath right rotator cuff repair and biceps tendosis. Removal of foreign body from eye Status post arthroscopy of left knee (08/19/19) Status post medial and lateral partial meniscectomies UPPP (Uvulopalatopharyngoplasty) Tobacco Smoking/Tobacco Use Status: Current every day Tobacco Type: cigarettes and smokeless tobacco Smokeless tobacco user: chewing tobacco Quit Status: has quit before Second hand exposure: Yes Alcohol Alcohol Intake: current Alcohol intake frequency: a few times a week Alcohol type: beer Substance Use Substance use: Never Substance use type: does not use Vital Signs and Lab Results Lab Results Blood Type / Crossmatch: No Data to Display Complete Blood Count: No Data to Display Complete Metabolic Panel: No Data to Display Liver Function Panel: No Data to Display Coagulation Panel: No Data to Display Cardiac Panel: No Data to Display Arterial Blood Gas: No Data to Display Venous Blood Gas: No Data to Display Pancreas Panel: No Data to Display Thyroid Panel: No Data to Display Infectious Disease: Coronavirus (COVID-19)(PCR) Negative (Negative) 07/18/21 08:33 07/18/21 Coronavirus 2019 Source Nasal/Nares 07/18/21 08:33 07/18/21 Blood Cultures: No Data to Display Toxicology Panel: No Data to Display Imaging and Studies Imaging and Studies Study information below may be from another EMR and interpreted by another provider. Please see original notes in EMR for more complete details. Stress Test Summary: 1. Myocardial perfusion imaging: No myocardial perfusion defects noted. 2. The calculated left ventricular ejection fraction after stress: 55%. LV global systolic function is normal. No left ventricular regional motion abnormality. 3. Stress ECG conclusions: The stress ECG is negative. Patel treadmill score: 10. This score predicts a low risk of cardiac events. 4. Stress: The target heart rate was achieved. The heart rate response to stress is normal. There is a normal resting blood pressure with a hypertensive response to stress (peak SBP 256 mmHg). The patient experienced no chest pain during stress. Exercise capacity is average for age. Anesthesia Assessment and Plan Anesthesia History Personal History: No History of Anesthesia Complications Family History: No Family History of Anesthesia Complications Exercise Tolerance Exercise Tolerance: Metabolic Equivalents>4 Pertinent Negatives Pertinent Negatives: No Symptoms of GERD, No Major Cardiovascular Symptoms or Complaints and No Major Pulmonary Symptoms or Complaints (PARISH uses CPAP every night ) Cardiac & Pulmonary Exam Cardiac Exam: Normal S1/S2 Heart Sounds Pulmonary Exam: Clear Bilateral Breath Sounds Implantable Cardiac Device Does patient have a Pacemaker or an ICD?: No Airway Exam Known Difficult Airway: No Mallampati Class: 1 Mouth Opening: Normal (> 3cm) Thyromental Distance: Greater than 3 cm Neck Range of Motion: Full ROM Neck Circumference: Normal Teeth Condition: Normal Dentition ASA Classification ASA Score: ASA 2 Emergency Case?: No NPO Status NPO Status: NPO Clears >2 hours, Solids >8 hours Anesthesia Plan Resuscitation Status: Full Code Anesthesia Technique: General Anesthesia Airway Planned: LMA Monitors Used: Standard Monitors
[2021-07-20] MEDS: Lactated Ringers 1,000 ML 80 ML IV (08:04)
--- NOTE | 2021-07-20 09:09 | HPE_ITS ---
Assessment and Plan Assessment and plan (1) Left carpal tunnel syndrome: Status: Acute (2) Cubital tunnel syndrome on left: Status: Acute Assessment and plan: Brock is a 50-year-old who has carpal tunnel and cubi janessa tunnel syndrome of the left arm. I have previously discussed this with him in detail he elects to proceed with carpal tunnel and cubital tunnel releases. Once again, reviewed the technical features of this case. I also discussed the risk to include bleeding, infection, pain, stiffness, damage to nerves and vessels, damage to muscle and tendons, persistent numbness, sensitivity over the medial elbow, need for repeat procedures. Despite these risk, he elects to proceed. History of Present Illness History of Present Illness Chief Complaint: Left Carpal and Cubital Tunnel Syndrome Narrative: Brock is a 50-year-old who has known tingling about his left hand. He has been seen in the office previously and diagnosed with cubital tunnel and carpal tunnel syndrome. Please see that office note for complete detailed history. He denies any chest pain or shortness of breath. He has no sick contacts. He is COVID-19 negative. He has no change in his clinical symptoms from what was documented in the office note. Review of Systems All systems reviewed & are unremarkable except as noted in HPI and below PFSH All Active Problems Left carpal tunnel syndrome (Acute) Normal colonoscopy (Acute ~05/2021) Cubital tunnel syndrome on left (Acute) Schizophrenia (Chronic 09/11/07) Depressive disorder (Chronic 06/20/07) Depressed bipolar I disorder (Chronic 09/11/07) Essential hypertension with goal blood pressure less than 130/80 (Acute) stop lisinopril start diltiazem Erectile 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 (Acute) prn sildenafil--discussed ADRs including persistent erection Neck pain on right side (Acute) Hip pain, right (Acute) Screening for colon cancer (Acute) Bilateral carpal tunnel syndrome (Acute) Medical History Cardiac arrhythmia, unspecified (06/20/07) Carpal tunnel syndrome on left Complete tear of right rotator cuff (07/28/16) Contact dermatitis (06/20/07) Depressed bipolar disorder Essential hypertension Knee pain, left Medial epicondylitis, left elbow (05/25/17) Olecranon bursitis, left elbow (05/25/17) Schizophrenia Skin lesion of neck Sleep disturbance, unspecified (06/20/07) Umbilical hernia (05/22/13) Surgical History History of colonoscopy (~05/2021) History of local excision of skin lesion left side of neck Jul 2019 Hx of shoulder surgery Incision, Tendon Sheath right rotator cuff repair and biceps tendosis. Removal of foreign body from eye Status post arthroscopy of left knee (08/19/19) Status post medial and lateral partial meniscectomies UPPP (Uvulopalatopharyngoplasty) Family History Mother Alcohol abuse Father Depression Sister No problems noted. Sister Alcohol abuse Maternal Grandfather Alcohol abuse Paternal Grandfather No problems noted. Maternal Grandmother Diabetes Alcohol abuse Paternal Grandmother No problems noted. Social History Smoking/Tobacco Use Status: Current every day Tobacco Type: cigarettes and smokeless tobacco Smokeless tobacco user: chewing tobacco Quit status: has quit before Second Hand Exposure: Yes Smoking risk assessment performed?: Yes Alcohol Intake: current Alcohol Intake frequency: a few times a week Alcohol type: beer Drug use: Never Substance use type: does not use Details: alcohol yesterday Caregiver/Support person: No Household members: spouse and children Housing: house Communication Needs: None Do you need help understanding health information?: Never Pets and animals: Yes Pets and animals: dog(s) Sexually active: Yes Do you think of yourself as: straight/heterosexual Current gender identity: male What is your relationship status?: How often do you talk on the phone with friends or family?: three or more times per week How often do you get together with friends or relatives?: once per week How often do you attend holiness or zoroastrian services?: 1-3 times per year Do you belong to any clubs or organized social groups?: no Panel score (0-1 are the most socially isolated patients): 2 What type of physical activity do you participate in: walking Duration: > 90 minutes/day Frequency: daily Gypsy/Pentecostalism: Jainism Special gypsy needs: No Seatbelt use: never Helmet use: No Drive intox or ride w/intox oil transport driver: No Do you feel safe at home: Yes Do you feel safe in your relationship?: Yes Meds Allergies and Home Medications Allergies Allergy/AdvReac Type Severity Reaction Status Date / Time mirtazapine AdvReac Severe PROFOUND Verified 07/20/21 07:32 BRADYCARDIA Home Medications Medication Instructions Recorded Confirmed Type diltiazem HCl 240 mg capsule,24 240 mg PO DAILY #90 cap 10/13/20 07/20/21 Rx hr,extended release citalopram 40 mg tablet 40 mg PO DAILY #90 tab 03/11/21 07/20/21 Rx sildenafil (pulm.hypertension) 20 20 - 100 mg PO DAILY PRN #30 tab 03/24/21 07/20/21 Rx mg tablet acetaminophen 500 mg PO Q6H PRN #60 tab 07/20/21 Rx hydrocodone-acetaminophen 1 tab PO Q6H PRN #6 tab 07/20/21 Rx ibuprofen 600 mg PO TID PRN #60 tab 07/20/21 Rx Exam Resp Auscultation: clear to auscultation bilaterally Cardio Rate: regular rate Rhythm: regular rhythm Results Last Vital Signs Temp 36.6 C 07/20/21 07:34 Pulse 80 07/20/21 07:34 Resp 16 07/20/21 07:34 BP 148/98 H 07/20/21 07:34 Pulse Ox 98 07/20/21 07:34
[2021-07-20] MEDS: ceFAZolin 2 GM/50 ML BAG IVPB (09:25)
[2021-07-20] MEDS: Sodium Bicarbonate 50 MEQ/50 ML VIAL (10:14)
--- NOTE | 2021-07-20 12:12 | W.ANESPOSTOP ---
Postoperative Evaluation Date, Time and Location Date Performed: 07/20/21 Time Performed: 12:12 Patient Location: Day Surgery Unit Vital Signs Most Recent Imported Vital Signs: Most Recent Vital Signs Temp Pulse Resp BP Pulse Ox 36.4 C L 69 20 140/77 94 07/20/21 11:34 07/20/21 11:34 07/20/21 11:34 07/20/21 11:34 07/20/21 11:34 Pain Score Most Recent Pain Score: Most Recent Pain Score Pain Level 0 07/20/21 11:34 Assessment Mental Status: Awake (Alert & Oriented to Patient Baseline) Airway and Respiratory Function: Patent airway with normal (patient baseline) respiratory exam Cardiovascular Function: Hemodynamically Stable Hydration Status: Adequately Hydrated Nausea & Vomiting: No Nausea or Vomiting Pain: Pain is tolerable per patient Peripheral Nerve Block: Patient did not receive a nerve block Teaching Patient Teaching: Discussed Safe Use of Pain Medication Given Likely or Known PARISH
--- NOTE | 2021-07-20 20:40 | W.PM.OP ---
Date of service: 07/20/21 Time of Service: 10:40 Operative Note Operative Note DATE OF PROCEDURE: 07/20/21 PRE-OP DIAGNOSIS: Left Carpal Tunnel and Left Cubital Tunnel Syndrome POST-OP DIAGNOSIS: same PROCEDURE: Left Endoscopic Carpal Tunnel Release and left Cubital Tunnel Decompression SURGEON: Basim Grigsby ANESTHESIA TYPE: General LMA/ETT Refer to Anesthesia Record ESTIMATED BLOOD LOSS: 0 PATHOLOGY: none sent TOURNIQUET TIME: 26 COMPLICATIONS: None Patient was transported to: PACU Patient's condition: stable Indications: Brock is a 50 year old male who has had symptoms of carpal and cubital tunnel syndrome. Nonoperative treatment options had been trialed. Given failure of nonoperative treatments and persistent symptoms, I offered operative intervention. I reviewed the technical details of a carpal tunnel release and cubital tunnel decompression with possible anterior subcutaneous transposition. I reviewed the risk of the procedure to include bleeding, infection, pain, stiffness, nerve instability, damage to superficial nerves, persistent symptoms, and incomplete release. Despite these risks, the patient elected to proceed. Findings: The carpal tunnel was release with a standard endoscopic technique without difficulty and excellent visualization. There was a tightened cubital tunnel. The ulnar nerve was release from the first motor branch distally through the [place] proximally. Procedure Description: Brock was greeted in the preoperative holding area where the correct side was identified and marked. The consent was reviewed with the patient and signed. The history and physical was updated. All questions were answered. He was taken back to the operating room. The patient was placed into the supine position on the operating room table with the left arm on an arm board. A nonsterile tourniquet was placed high onto the arm, into the axilla. All bony prominences were well padded. Prophylactic antibiotics in the form of Cefazolin were administered. The right arm was then prepped with Chloraprep and draped in a standard fashion with stockinette and extremity drape. A timeout to confirm correct identity, side and site, procedure, allergies, anesthesia, and medical concerns was performed. The surgical site was marked in the volar wrist creases in line with the radial border of the fourth ray. This area was anesthetized with approximately 6cc of 1% Lidocaine with Epinephrine. The surgical site about the medial elbow was drawn on the skin just posterior to the medial epicondyle borders. The planned surgical field was anesthetized with 1% Lidocaine with Epinephrine. The limb was then exsanguinated with an Esmarch. Starting with the carpal tunnel, the skin was incised with a 15 blade, approximately 1cm. The skin only was cut and the deeper tissue was dissected bluntly with a tenotomy scissor, avoiding passing nerve and venous structures. The fascia was penetrated and opened bluntly. A two-prong skin hook was placed under this proximal fascial edge. A series of hamate finders were used to identify and dilate the carpal tunnel. Synovial elevator was used to free synovial attachments to the underside of the transverse carpal ligament. My thumb was kept in the palm to anthony the distal extent of the carpal tunnel and correctly position the hand. The Microaire endoscope was inserted without difficulty and without resistance. Excellent visualization showed horizontally running fibers of the transverse carpal ligament (TCL). The distal extent of the TCL was visualized and the end of the scope palpated with the thumb. The blade was elevated and withdrawn from distal to proximal. The TCL was split into two flaps. The endoscope was reinserted to confirm complete release and any remnant ligament was incised. The scope was withdrawn and the proximal aspect of the carpal tunnel was grossly inspected and appeared release with the median nerve visible. The antebrachial fascia at the level of the wrist was then freed from the overlying skin and then the underlying median nerve with blunt dissection. This was transected longitudinally for about 3cm proximal to the wrist incision. The wound was then irrigated with easy flow of irrigant distally and proximally. The incision was closed with a single 4-0 Nylon suture. . Attention was then turned to the cubital tunnel release. The skin of the medial elbow was incised only with the elbow in some flexion and on a bump. The deep tissue and subcutaneous fat was dissected with a tenotomy scissors trying to protect any branches of the medial antebrachial cutaneous nerve. Any branches that were identified were retracted out of the way. The ulnar nerve was palpated and identified. A small window into the cubital tunnel, sheath overlying the nerve, was created and the nerve was able to be palpated with the [place]. A Metzenbaum scissor was then used to open up the sheath starting with Navas's ligament. I then worked distal over the ulnar nerve releasing any constraints against the nerve all the way to the fascia of the FCU muscle belly. This muscle belly was bluntly all the way down to the first motor branch of the ulnar nerve and the overlying fascia was incised. Likewise starting there at the medial epicondyle, I proceeded to work proximally to release any constraints over the ulnar nerve. This was taken all the way to the arcade of [place]. The medial intermuscular septum was also palpated and any sharp edges against the ulnar nerve were resected and released. After fully releasing the nerve it was inspected visually. I was also able to palpate the nerve fully and reach one finger up into the proximal and distal aspects to make sure there were no constraints against the nerve. A freer elevator was also used to slide easily against the ulnar nerve without any points of constriction. The arm was then taken through range of motion. The ulnar nerve did not sublux/dislocate out of its groove behind the lateral epicondyle. Therefore, no transposition was performed. The tourniquet was then deflated. Any areas of bleeding were cauterized with bipolar electrocautery. The wound was thoroughly irrigated. The deep tissue was closed with a 3-0 Vicryl. The skin was closed with a 4-0 nylon. The wounds were dressed with Xeroform, 4 x 4's, ABD, Kerlix and an Jean Claude wrap. Brock was placed into a sling. He was transferred back to the PACU in a stable condition.
== END 2021-07-20 12:24 | disposition home or self-care (01) ==
PROVIDERS: PCP Family Medicine; Visit Provider Student in an Organized Health Care Education/Training Program
PROC: 01N54ZZ Release Median Nerve, Percutaneous Endoscopic Approach (ICD-10-PCS; CPT 29848; principal; 2021-07-20 09:45)
DX: G56.02 Carpal tunnel syndrome, left upper limb (principal); G56.22 Lesion of ulnar nerve, left upper limb; I10 Essential (primary) hypertension; F31.9 Bipolar disorder, unspecified; F20.9 Schizophrenia, unspecified
CPT/HCPCS: 64718; 29848; J0131; J0690; J1100; J1885; J2250; J2405

== ENCOUNTER 2021-07-27 16:51 | Outpatient (REF) | payer MEDICAID, SELFPAY ==
[2021-07-29 16:16] LABS: COVID-19 RT-PCR UVMMC Result Positive (Negative)
== END 2021-07-27 16:52 | disposition home or self-care (01) ==
LOC: LBN 16:51
PROVIDERS: PCP Family Medicine; Visit Provider Family Medicine
DX: R09.81 Nasal congestion (principal); Z20.822 Contact with and (suspected) exposure to COVID-19
CPT/HCPCS: U0003

== ENCOUNTER 2021-07-30 18:49 | Inpatient (IN) | payer MEDICAID, SELFPAY ==
--- NOTE | 2021-07-30 18:45 | RT.EKG_ITS ---
APPROVED REPORT Exam: Resting ECG Reason for Exam: short of breath Patient Location: E HR:105 bpm ECG Measurements Heart Rate 105 AXIS CO 162 P 28 QRSd 81 QRS 55 QT 325 T 27 QTc 420 Conclusion Sinus tachycardia...rate> 99 Sinus. PVCs. No STEMI. I have reviewed and interpreted ECG and agree with software generated interpretation.
[2021-07-30 19:06] VITALS: BP 147/81; PULSE 103; RESP 18; TEMP 37.5; O2SAT 88
--- NOTE | 2021-07-30 19:10 | ED.GENADUL_ITS ---
Discharge Plan Disposition Patient Disposition: [facility] INPATIENT Condition: Fair Discharge Details Clinical Impression: COVID-19 Admit Date/Time: 07/30/21 21:38 Admit Provider: Lauryn Arredondo Attending Provider: Lauryn Arredondo Primary Care Provider: Hipolito Vela ED Provider: Yung Hamilton Discharge Data Discharge Date/Time-TO BE ENTERED AT DEPARTURE: 07/30/21 22:50 Medical Decision Making Patient presenting to the emergency department with complaint of chest pain and shortness of breath. Patient states that 5 days ago he began having fever and chills. Was seen by primary care and had COVID test performed which was positive. Patient did see urgent care yesterday and was ordered antivirals but was not able to take due to availability. Patient states worsening chest pain and shortness of breath. Patient is unvaccinated and has not received any treatments thus far. Physical exam shows acutely ill-appearing patient with tachypnea and hypoxia. Clear lung sounds and otherwise none specific exam. Plan to perform laboratory studies and EKG and to start treatments of steroids, IV fluid, albuterol, and acetaminophen. We will continue to monitor patient's condition. Please see physician interpretation for full EKG report but upon review shows sinus tachycardia with PVC otherwise nondiagnostic EKG. No acute signs of STEMI. Review of labs consistent with COVID infection. Reviewed CT imaging along with radiologist interpretation that shows extensive bilateral groundglass infiltrate. Reassessed patient and patient is significantly more stable but is still requiring oxygen support. Given initial presentation when patient was on room air, significant CT changes, and positive COVID-19 with patient being unvaccinated I do feel that patient should be admitted for further oxygen support and monitoring. Hospitalist was contacted to discuss admission and admission was agreed upon. Patient is also agreeable to this plan of care and significant other was contacted to update her on patient's condition. HPI General Mode of arrival: ambulatory . Date/Time Provider Initiated Documentation: 07/30/21 18:50 . Limitations to Documentation: no limitations . Information obtained by: patient . History of Present Illness 50 year old M presents to the emergency department with the chief complaint of Covid + SOB and Chest pain, described as severe, with intensity rated at 5. Quality is described as aching, and is localized to the chest. Patient reports no radiation. Patient started experiencing this day(s) (5) and it has been other (worsening). No relieving factors improve symptom(s), Other factors that worsen symptoms (activity) . Patient notes fever/chills, malaise and weakness. Patient did receive the following treatments prior to arrival, NSAID Related Data Home Medications Medication Instructions Recorded Confirmed diltiazem HCl 240 mg capsule,24 240 mg PO DAILY #90 cap 10/13/20 07/30/21 hr,extended release citalopram 40 mg tablet 40 mg PO DAILY #90 tab 03/11/21 07/30/21 sildenafil (pulm.hypertension) 20 20 - 100 mg PO DAILY PRN #30 tab 03/24/21 07/30/21 mg tablet acetaminophen 500 mg PO Q6H PRN #60 tab 07/20/21 07/30/21 hydrocodone-acetaminophen 1 tab PO Q6H PRN #6 tab 07/20/21 07/27/21 ibuprofen 600 mg PO TID PRN #60 tab 07/20/21 07/30/21 nirmatrelvir 300 mg (150 mg x See Rx Instructions PO PER PKG DIR 07/29/21 2)-ritonavir 100 mg tablet (EUA) #30 tab Previous Rx's Medication Instructions Recorded diltiazem HCl 240 mg capsule,24 240 mg PO DAILY #90 cap 10/13/20 hr,extended release citalopram 40 mg tablet 40 mg PO DAILY #90 tab 03/11/21 sildenafil (pulm.hypertension) 20 20 - 100 mg PO DAILY PRN #30 tab 03/24/21 mg tablet acetaminophen 500 mg PO Q6H PRN #60 tab 07/20/21 hydrocodone-acetaminophen 1 tab PO Q6H PRN #6 tab 07/20/21 ibuprofen 600 mg PO TID PRN #60 tab 07/20/21 nirmatrelvir 300 mg (150 mg x See Rx Instructions PO PER PKG DIR 07/29/21 2)-ritonavir 100 mg tablet (EUA) #30 tab Allergies Allergy/AdvReac Type Severity Reaction Status Date / Time mirtazapine AdvReac Severe PROFOUND Verified 07/27/21 16:34 BRADYCARDIA General Stated Complaint: SOB BEVERLY: 3 Review of Systems Constitutional Constitutional: Reports chills, Reports fever(s) and Reports malaise ENT Ears, Nose, Mouth, and Throat: Denies nasal congestion, Denies nasal discharge, Denies sore throat and Denies throat swelling Cardiovascular Cardiovascular: Reports as per HPI, Reports chest pain, Denies chest pain with activity, Denies syncope, Denies irregular heart rhythm and Reports dyspnea Respiratory Respiratory: Reports cough, Denies hemoptysis and Reports dyspnea Gastrointestinal Gastrointestinal: Denies abdominal pain, Denies nausea and Denies vomiting Musculoskeletal Musculoskeletal: Reports myalgias and Denies joint swelling Neurologic Neurologic: Denies syncope Allergic/Immunologic Allergic/Immunologic: Denies throat swelling PFSH All Active Problems Alcohol abuse (Chronic) Discharge planning issues (Acute) DVT prophylaxis (Acute) Thrombocytopenia (Acute) Hypoxia (Acute) COVID-19 (Acute ~07/2021) Left carpal tunnel syndrome (Acute) Normal colonoscopy (Acute ~05/2021) Cubital tunnel syndrome on left (Acute) Schizophrenia (Chronic 09/11/07) Depressive disorder (Chronic 06/20/07) Depressed bipolar I disorder (Chronic 09/11/07) Essential hypertension with goal blood pressure less than 130/80 (Acute) stop lisinopril start diltiazem Erectile 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 (Acute) prn sildenafil--discussed ADRs including persistent erection Neck pain on right side (Acute) Hip pain, right (Acute) Screening for colon cancer (Acute) Bilateral carpal tunnel syndrome (Acute) Medical History Cardiac arrhythmia, unspecified (06/20/07) Carpal tunnel syndrome on left Complete tear of right rotator cuff (07/28/16) Contact dermatitis (06/20/07) Depressed bipolar disorder Essential hypertension Knee pain, left Medial epicondylitis, left elbow (05/25/17) Olecranon bursitis, left elbow (05/25/17) Schizophrenia Skin lesion of neck Sleep disturbance, unspecified (06/20/07) Umbilical hernia (05/22/13) Surgical History History of carpal tunnel surgery of left wrist History of colonoscopy (~05/2021) History of local excision of skin lesion left side of neck Jul 2019 Hx of shoulder surgery Incision, Tendon [place] right rotator cuff repair and biceps tendosis. Removal of foreign body from eye S/P cubital tunnel release left Status post arthroscopy of left knee (08/19/19) Status post medial and lateral partial meniscectomies UPPP (Uvulopalatopharyngoplasty) Family History Mother Alcohol abuse Father Depression Sister No problems noted. Sister Alcohol abuse Maternal Grandfather Alcohol abuse Paternal Grandfather No problems noted. Maternal Grandmother Diabetes Alcohol abuse Paternal Grandmother No problems noted. Social History Smoking/Tobacco Use Status: Current every day Tobacco Type: cigarettes and smokeless tobacco Smokeless tobacco user: chewing tobacco Quit status: has quit before Second Hand Exposure: Yes Smoking risk assessment performed?: Yes Alcohol Intake: current Alcohol Intake frequency: a few times a week Alcohol type: beer Counseling given: Yes Counseling provided: provider counseling and reduce to 2 or less/day Drug use: Never Substance use type: does not use Details: alcohol yesterday Caregiver/Support person: No Household members: spouse and children Housing: house Communication Needs: None Do you need help understanding health information?: Never Pets and animals: Yes Pets and animals: dog(s) Sexually active: Yes Do you think of yourself as: straight/heterosexual Current gender identity: male What is your relationship status?: How often do you talk on the phone with friends or family?: three or more times per week How often do you get together with friends or relatives?: once per week How often do you attend buddhism or roman catholic services?: 1-3 times per year Do you belong to any clubs or organized social groups?: no Panel score (0-1 are the most socially isolated patients): 2 What type of physical activity do you participate in: walking Duration: > 90 minutes/day Frequency: daily Gypsy/Adventism: Sikhism Special gypsy needs: No Seatbelt use: never Helmet use: No 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 Do you feel safe at home: Yes Do you feel safe in your relationship?: Yes Additional Social history: The patient denies smoking to me, though it is mentioned in his chart as active Exam Const General: cooperative, healthy appearing, comfortable, in distress mild and respiratory, not diaphoretic and ill appearing acutely Nutritional Appearance: overweight Orientation: alert, awake and oriented x3 Limitations: mental status not altered Neck Neck: normal visual inspection, full ROM, trachea midline, supple and no anterior neck swelling Chest Chest: normal inspection of the chest Resp Effort & Inspection: able to speak in complete sentences, labored and tachypneic Auscultation: clear to auscultation bilaterally Cardio Palpation: normal PMI Rate: regular rate Rhythm: regular rhythm Heart Sounds: S1 normal, S2 normal, no click, no gallops, no murmurs and no rubs Pulses: radial pulses present bilaterally 2+ Skin General skin exam: no rashes or lesions noted Neuro General: patient alert, patient awake, patient oriented x3, tone normal and moves all extremities Course Vital Signs Vital signs: Vital Signs Temperature 37.5 C 07/30/21 19:06 Pulse 103 H 07/30/21 19:06 Respiratory Rate 18 07/30/21 19:06 Blood Pressure 147/81 H 07/30/21 19:06 Pulse Oximetry 88 L 07/30/21 19:06 Temperature 37.5 C 07/30/21 19:06 Temperature Source Temporal Artery Scan 07/30/21 19:06 Pulse 103 H 07/30/21 19:06 Respiratory Rate 18 07/30/21 19:06 Respiratory Effort 07/30/21 19:09 Blood Pressure 147/81 H 07/30/21 19:06 Blood Pressure Position Supine 07/30/21 19:06 Pulse Oximetry 88 L 07/30/21 19:06 Oxygen Delivery Method Room Air 07/30/21 19:06 Oxygen Flow Rate 0 07/30/21 19:06 Pain Level 5 07/30/21 19:06
[2021-07-30 19:30] LABS: Abs Immature Grans 0.01 10^3/uL (0.0-0.06); Absolute Lymphocyte Count 0.64 10^3/uL (1.2-3.4); Absolute Monocyte Count 0.27 10^3/uL (0.1-0.8); Absolute Neutrophil Count 2.93 10^3/uL (1.2-6.7); HCT 46.4 % (40.0-50.0); HGB 15.2 g/dL (13.5-17.5); Immature Grans % 0.3; Lymphocytes % 16.6; MCH 28.1 pg (27.0-33.0); MCHC 32.8 % (32.0-36.0); MCV 85.9 fL (80-95); MPV 10.6 fL (8.0-11.0); Neutrophils % 76.1; Nucleated RBC 0 %; Platelet Count 101 10^3/uL (130-400); RDW 13.1 % (11.8-14.1); RDW-SD 41.3 fL; WBC 3.85 10^3/uL (4.4-10.8)
[2021-07-30 19:46] LABS: ALT 43 U/L (16-63); AST 33 U/L (15-37); Albumin 3.2 g/dL (3.4-5.0); Alkaline Phosphatase 79 U/L (46-116); Anion Gap 6.8 mmol/L (3-11); BUN 8 mg/dL (7-18); Bilirubin, Total 0.4 mg/dL (0.2-1.0); CO2 29.2 mmol/L (21.0-32.0); Calcium 8.2 mg/dL (8.5-10.1); Chloride 100 mmol/L (98-107); Glucose 114 mg/dL (74-106); Magnesium 1.9 mg/dL (1.8-2.4); Sodium 136 mmol/L (136-145); Total Protein 6.8 g/dL (6.4-8.2); Troponin I < 50 ng/L (<or=60)
[2021-07-30] MEDS: ACETAMINOPHEN 1,000 MG/100 ML BTL 400 MG IVPB (19:47)
[2021-07-30] MEDS: Albuterol 2.5 MG/3 ML INH SOLN VIAL UPD (19:47)
[2021-07-30] MEDS: Normal Saline 1,000 ML 1000 ML IV (19:48)
[2021-07-30] MEDS: Dexamethasone 10 MG/ML VIAL IVP (19:48)
--- NOTE | 2021-07-30 20:00 | DI.CT_ITS ---
Exam(s) CT CHEST PE CTA EXAM: CT CHEST PE CTA CLINICAL HISTORY: Chest pain, shortness of breath, tachycardia. TECHNIQUE: Imaging Protocol: CT angiography of the chest was performed using pulmonary embolus rachelle col. Multi planar reconstructions were performed. CONTRAST MATERIAL: Intravenous: Omnipaque 350 Contrast volume: 100 cc COMPARISON: No exams were available for comparison FINDINGS: CHEST: PULMONARY ARTERIES: There are no intraluminal filling defects to suggest acute pulmonary emboli. LUNGS: There are extensive bilateral patchy and ground-glass infiltrates which are highly suspicious for Covid-type pneumonia. No focal findings in trachea and mainstem bronchi.. There are no pleural effusions. MEDIASTINUM: There is no obvious hilar adenopathy but there is subcarinal adenopathy noted. No adeno tameka in the anterior mediastinal fat. There are shotty lymph nodes in both axillary regions. Visua lized thyroid unremarkable. CARDIAC: Heart size is upper normal. There is no pericardial effusion.Caliber of the thoracic aorta is within normal limits. No evidence of dissection. There is no significant shift of the interventri cular septum. PARTIALLY VISUALIZED UPPERMOST ABDOMEN: No significant adrenal masses. However, there are multiple h ypodensities in the liver which are not simple cysts but cannot be characterized on this type of exam ination. Cannot exclude possibility of metastatic disease. Spleen is enlarged. OSSEOUS: No significant osseous lesions.. IMPRESSION: 1. Extensive bilateral patchy infiltrates which are highly suspicious for Covid-19 pneumonia..No pleu ral effusions. 2. There is significant subcarinal adenopathy. This may or may not be related to the amount of bilat eral extensive infiltrates in the lung infante. No obvious hilar nor anterior mediastinal adenopathy. No axillary adenopathy. No supraclavicular adenopathy. 3. Mild splenomegaly noted. RADIATION DOSE DELIVERED: 614.72mGy.cm Total DLP DATA REPOSITORY: All CT scans at this facility are submitted to the National Radiology Data Registry (NRDR) Dose Index Registry (DIR) with the [employer] (ACR). RADIATION OPTIMIZATION: All CT scans at this facility use at least one of these dose optimization te chniques: automated exposure control; mA and/or kV adjustment per patient size (includes targeted exa ms where dose is matched to clinical indication); or iterative reconstruction.
[2021-07-30 20:01] LABS: D-Dimer 839 ng/mlFEU (<500)
[2021-07-30] MEDS: Omnipaque 350 MG/ML 100 ML BTL IJ (20:22)
--- NOTE | 2021-07-30 20:58 | DI.VRAD_ITS ---
PROCEDURE INFORMATION: Exam: CTA Chest With Contrast Exam date and time: 07/30/2021 8:04 PM Age: 50 years old Clinical indication: Other: Chest pain, shortness of breath, tachcardia TECHNIQUE: Imaging protocol: Computed tomographic angiography of the chest with contrast. 3D rendering (Not supervised by radiologist): MIP and/or 3D reconstructed images were created by the technologist. Contrast material: 350; Contrast volume: 100 ml; Contrast route: INTRAVENOUS (IV); COMPARISON: CR CHEST 2 VIEWS PA,LAT 12/16/2015 20:32 FINDINGS: Pulmonary arteries: Normal. No pulmonary emboli. Aorta: Unremarkable. No aortic aneurysm. No aortic dissection. Lungs: Extensive bilateral ground-glass infiltrates with crazy paving consolidation. Low lung volumes. Pleural spaces: Unremarkable. No pneumothorax. No pleural effusion. Heart: Unremarkable. No cardiomegaly. No pericardial effusion. Lymph nodes: Mediastinal and hilar lymph nodes. Diaphragm: Hiatal hernia. Liver: Hepatic steatosis. Bones/joints: Multilevel degenerative changes of the spine. Soft tissues: Unremarkable. IMPRESSION: Extensive bilateral ground-glass and crazy paving infiltrates. Dictated and Authenticated by: Gaby Bowie MD. Ordering:JEREMIAH Barragan MD
[2021-07-30 21:46] LABS: Lab Add On Test DONE
--- NOTE | 2021-07-30 21:46 | HPE_ITS ---
Date of service: 07/30/21 Time of Service: 21:47 Assessment and Plan Assessment and plan (1) COVID-19: Status: Acute Assessment and plan: In an unvaccinated individual. With hypoxia. PE ruled out. Admit to medsurg floor with continuous pulse ox monitororing. Treat with remdesivir, dexamethasone, bronchodilators, antitussives, IS, aceppella, and encourage proning. Supplement vitamin C, D, zinc. GI ppx with pepcid. await procalcitonin to determine any role for abx. Trend CRP, ferritin, d-dimer. (2) Hypoxia: Status: Acute Assessment and plan: Due to above. As above (3) Essential hypertension: Assessment and plan: Continue diltiazem (4) Thrombocytopenia: Status: Acute Assessment and plan: Due to COVID-19. While the latest NIH guidelines recommend therapeutic anticoagulation for hospitalized patients on low flow oxygen, his platelet count is borderline, and I only feel comfortable prescribing prophylactic dosing until his platelets improve. (5) Alcohol abuse: Status: Chronic Assessment and plan: patient was advised to decrease his alcohol intake. No h/o EtOH w/d. Last drink 6 days ago. Monitor on CIWA with prn benzodiazepines. Will give thiamine now and MVI/thiamine in am. Check B12/folate levels. (6) DVT prophylaxis: Status: Acute Assessment and plan: Sc lovenox (7) Discharge planning issues: Status: Acute Assessment and plan: Full code Admit to medsurg floor. History of Present Illness History of Present Illness Chief Complaint: shortness of breath Narrative: Mr Duffy is a 50 year old male with PMhx of Hypertension, Bipolar d/o, shcizop hrenia, obesity with BMI of 33.6 kg/m2, unvaccinated against COVID-19, who was diagnosed with COVID-19 (PCR) yesterday after 5 days of sx, who presented to [facility] ED today complaining of shortness of breath, progressively worse over the last 2 days. He has had a productive cough, but is unsure of the color of the sputum. He has also had diarrhea, poor appetite, body aches, fevers, chest pain on inspiration and cough. He had not been able to fill the paxlovid he was prescribed. He was saturating 88% on RA and is requiring 2L to saturate 94-95%. He was treated with nebulized albuterol as well as with dexamethasone. His CTA ruled out PE, but does show bilateral groundglass opacitices. Hospitalist admission was requested. The patient admits to drinking 4 beers a day. He states he has not drunk in 6 days, since he got the symptoms of COVID-19. He says he does not have a h/o EtOH w/d. He was advised to decrease his alcohol intake. Review of Systems All systems reviewed & are unremarkable except as noted in HPI and below PFSH All Active Problems Alcohol abuse (Chronic) Discharge planning issues (Acute) DVT prophylaxis (Acute) Thrombocytopenia (Acute) Hypoxia (Acute) COVID-19 (Acute ~07/2021) Left carpal tunnel syndrome (Acute) Normal colonoscopy (Acute ~05/2021) Cubital tunnel syndrome on left (Acute) Schizophrenia (Chronic 09/11/07) Depressive disorder (Chronic 06/20/07) Depressed bipolar I disorder (Chronic 09/11/07) Essential hypertension with goal blood pressure less than 130/80 (Acute) stop lisinopril start diltiazem Erectile 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 (Acute) prn sildenafil--discussed ADRs including persistent erection Neck pain on right side (Acute) Hip pain, right (Acute) Screening for colon cancer (Acute) Bilateral carpal tunnel syndrome (Acute) Medical History Cardiac arrhythmia, unspecified (06/20/07) Carpal tunnel syndrome on left Complete tear of right rotator cuff (07/28/16) Contact dermatitis (06/20/07) Depressed bipolar disorder Essential hypertension Knee pain, left Medial epicondylitis, left elbow (05/25/17) Olecranon bursitis, left elbow (05/25/17) Schizophrenia Skin lesion of neck Sleep disturbance, unspecified (06/20/07) Umbilical hernia (05/22/13) Surgical History History of carpal tunnel surgery of left wrist History of colonoscopy (~05/2021) History of local excision of skin lesion left side of neck Jul 2019 Hx of shoulder surgery Incision, Tendon Sheath right rotator cuff repair and biceps tendosis. Removal of foreign body from eye S/P cubital tunnel release left Status post arthroscopy of left knee (08/19/19) Status post medial and lateral partial meniscectomies UPPP (Uvulopalatopharyngoplasty) Family History Mother Alcohol abuse Father Depression Sister No problems noted. Sister Alcohol abuse Maternal Grandfather Alcohol abuse Paternal Grandfather No problems noted. Maternal Grandmother Diabetes Alcohol abuse Paternal Grandmother No problems noted. Social History Smoking/Tobacco Use Status: Current every day Tobacco Type: cigarettes and smokeless tobacco Smokeless tobacco user: chewing tobacco Quit status: has quit before Second Hand Exposure: Yes Smoking risk assessment performed?: Yes Alcohol Intake: current Alcohol Intake frequency: a few times a week Alcohol type: beer Counseling given: Yes Counseling provided: provider counseling and reduce to 2 or less/day Drug use: Never Substance use type: does not use Details: alcohol yesterday Caregiver/Support person: No Household members: spouse and children Housing: house Communication Needs: None Do you need help understanding health information?: Never Pets and animals: Yes Pets and animals: dog(s) Sexually active: Yes Do you think of yourself as: straight/heterosexual Current gender identity: male What is your relationship status?: How often do you talk on the phone with friends or family?: three or more times per week How often do you get together with friends or relatives?: once per week How often do you attend orthodox or sikhism services?: 1-3 times per year Do you belong to any clubs or organized social groups?: no Panel score (0-1 are the most socially isolated patients): 2 What type of physical activity do you participate in: walking Duration: > 90 minutes/day Frequency: daily Gypsy/Taoist: Alevism Special gypsy needs: No Seatbelt use: never Helmet use: No Drive intox or ride w/intox automobile drivers: No Do you feel safe at home: Yes Do you feel safe in your relationship?: Yes Additional Social history: The patient denies smoking to me, though it is mentioned in his chart as active Meds Allergies and Home Medications Allergies Allergy/AdvReac Type Severity Reaction Status Date / Time mirtazapine AdvReac Severe PROFOUND Verified 07/27/21 16:34 BRADYCARDIA Home Medications Medication Instructions Recorded Confirmed Type diltiazem HCl 240 mg capsule,24 240 mg PO DAILY #90 cap 10/13/20 07/30/21 Rx hr,extended release citalopram 40 mg tablet 40 mg PO DAILY #90 tab 03/11/21 07/30/21 Rx sildenafil (pulm.hypertension) 20 20 - 100 mg PO DAILY PRN #30 tab 03/24/21 07/30/21 Rx mg tablet acetaminophen 500 mg PO Q6H PRN #60 tab 07/20/21 07/30/21 Rx hydrocodone-acetaminophen 1 tab PO Q6H PRN #6 tab 07/20/21 07/27/21 Rx ibuprofen 600 mg PO TID PRN #60 tab 07/20/21 07/30/21 Rx nirmatrelvir 300 mg (150 mg x See Rx Instructions PO PER PKG DIR 07/29/21 Rx 2)-ritonavir 100 mg tablet (EUA) #30 tab Exam Narrative Exam Narrative: General: Very pleasant middle-aged male who is not dyspneic/tachypenic, sitting in a chair on 2L of O2, able to complete sentences, appears comfortable, coughing Neurological: A&Ox3, no focal deficits Psychiatric: appropriate speech pattern/content, cooperative Skin: Seemingly chronic discoloration/hyperpigmentation of the nose; no bru ises/rashes HEENT: Atraumatic, normocephalic, EOMI, dry MM, clear oropharynx, no submandibular or cervical lymphadenopathy, no goiter or JVD Cardiovascular: RRR, no m/r/g Lungs: Diminished breath sounds R base, rhonchi L lung field Gastrointestinal: soft, nontender, nondistended Genitourinary: deferred Extremities: no edema, clubbing, or cyanosis of BLE's, 2+ pedal pulses B Results Imaging Additional studies: EKG: Sinus tach w/ PACs, HR 105, no acute ischemia CTA chest: Extensive bilateral ground-glass and crazy paving infiltrates. Labs Result diagrams: 07/30/21 19:24 07/30/21 19:24 Labs: Laboratory Results - last 24 hr 07/30/21 07/30/21 07/30/21 19:24 19:24 19:24 WBC 3.85 L RBC 5.40 Hgb 15.2 Hct 46.4 MCV 85.9 MCH 28.1 MCHC 32.8 RDW 13.1 Plt Count 101 L MPV 10.6 Immature Gran % 0.3 Neutrophils % 76.1 Lymphocytes % 16.6 Monocytes % 7.0 Eosinophils % 0.0 Basophils % 0.0 Nucleated RBC % 0 Absolute Neutrophils 2.93 Absolute Lymphocytes 0.64 L Absolute Monocytes 0.27 Absolute Eosinophils 0.00 Absolute Basophils 0.00 D-Dimer 839 H Sodium 136 Potassium 4.0 Chloride 100 Carbon Dioxide 29.2 Anion Gap 6.8 BUN 8 Creatinine 1.0 Estimated GFR/1.73 m2 >= 60.00 Glucose 114 H Calcium 8.2 L Magnesium 1.9 Total Bilirubin 0.4 AST 33 ALT 43 Alkaline Phosphatase 79 Troponin I < 50 Total Protein 6.8 Albumin 3.2 L Add-On Test Request 07/30/21 19:24 WBC RBC Hgb Hct MCV MCH MCHC RDW Plt Count MPV Immature Gran % Neutrophils % Lymphocytes % Monocytes % Eosinophils % Basophils % Nucleated RBC % Absolute Neutrophils Absolute Lymphocytes Absolute Monocytes Absolute Eosinophils Absolute Basophils D-Dimer Sodium Potassium Chloride Carbon Dioxide Anion Gap BUN Creatinine Estimated GFR/1.73 m2 Glucose Calcium Magnesium Total Bilirubin AST ALT Alkaline Phosphatase Troponin I Total Protein Albumin Add-On Test Request DONE Last Vital Signs Temp 37.5 C 07/30/21 19:06 Pulse 103 H 07/30/21 19:06 Resp 18 07/30/21 19:06 BP 147/81 H 07/30/21 19:06 Pulse Ox 88 L 07/30/21 19:06
[2021-07-30 21:55] LABS: C-Reactive Protein 7.23 mg/dL (0.0-0.3)
[2021-07-30 22:21] LABS: Troponin I < 50 ng/L (<or=60)
[2021-07-30 22:21] LABS: Ferritin 787 ng/mL (26-388)
[2021-07-30 22:35] LABS: Procalcitonin 0.1 ng/mL
[2021-07-30 22:54] VITALS: BP 112/84; PULSE 88; RESP 20; TEMP 37.1; O2SAT 95
[2021-07-30 22:59] VITALS: PULSE 87
[2021-07-31] VITALS (8 sets, daily range): BP systolic 97–121; BP diastolic 57–86; PULSE 66–81; RESP 18–20; TEMP 36.1–37; O2SAT 91–94
[2021-07-31] MEDS: Melatonin 3 MG TAB PO ×2 (01:28→22:22)
[2021-07-31] MEDS: REMDESIVIR 200 MG in Normal Saline 250 ML 250 MG IVPB (01:28)
[2021-07-31] MEDS: Water,Injection,Sterile 10 ML VIAL (01:30)
[2021-07-31] MEDS: THIAMINE 100 MG in Normal Saline 100 ML 200 MG IVPB (03:56)
[2021-07-31] MEDS: Ipratropium/Albuterol 4 GM 120 PUFF INH IH ×4 (08:21→22:23)
[2021-07-31] MEDS: Ascorbic Acid 500 MG TAB 1000 MG PO ×2 (08:22→22:22)
[2021-07-31] MEDS: Enoxaparin 40 MG/0.4 ML SYR SC (08:22)
[2021-07-31] MEDS: dilTIAZem CD 120 MG CAPCR 240 MG PO (08:23)
[2021-07-31] MEDS: Benzonatate 200 MG CAP PO ×3 (08:23→22:22)
[2021-07-31] MEDS: Folic Acid 1 MG TAB PO (08:23)
[2021-07-31] MEDS: Cholecalciferol (Vitamin D3) 1,000 UNIT TAB 2000 UNITS PO (08:23)
[2021-07-31] MEDS: Zinc Sulfate 220 MG TAB PO (08:23)
[2021-07-31] MEDS: guaiFENesin 600 MG TABCR PO ×2 (08:23→22:22)
[2021-07-31] MEDS: Citalopram 20 MG TAB 40 MG PO (08:23)
[2021-07-31] MEDS: Dexamethasone 4 MG TAB 6 MG PO (08:23)
[2021-07-31] MEDS: Thiamine 100 MG TAB PO (08:23)
[2021-07-31] MEDS: Famotidine 20 MG TAB PO ×2 (08:23→22:21)
[2021-07-31] MEDS: Multivitamin TAB 1 TAB PO (08:23)
[2021-07-31 08:24] LABS: Abs Immature Grans 0.01 10^3/uL (0.0-0.06); Absolute Lymphocyte Count 0.38 10^3/uL (1.2-3.4); Absolute Monocyte Count 0.16 10^3/uL (0.1-0.8); Absolute Neutrophil Count 2.08 10^3/uL (1.2-6.7); HCT 43.6 % (40.0-50.0); HGB 14.2 g/dL (13.5-17.5); Immature Grans % 0.4; Lymphocytes % 14.4; MCH 27.8 pg (27.0-33.0); MCHC 32.6 % (32.0-36.0); MCV 85.5 fL (80-95); MPV 10.8 fL (8.0-11.0); Monocytes % 6.1; Neutrophils % 79.1; Nucleated RBC 0 %; Platelet Count 106 10^3/uL (130-400); RDW-SD 41.1 fL; WBC 2.63 10^3/uL (4.4-10.8)
[2021-07-31 08:37] LABS: ALT 36 U/L (16-63); AST 30 U/L (15-37); Albumin 2.9 g/dL (3.4-5.0); Alkaline Phosphatase 70 U/L (46-116); Bilirubin, Direct 0.1 mg/dL (0.0-0.2); Bilirubin, Total 0.4 mg/dL (0.2-1.0); Hemoglobin A1C 5.5 % (<5.7); Total Protein 6.3 g/dL (6.4-8.2)
[2021-07-31 08:40] LABS: Prothrombin Time 10.4 sec (9.3-11.0)
[2021-07-31 08:49] LABS: Anion Gap 8.3 mmol/L (3-11); BUN 11 mg/dL (7-18); C-Reactive Protein 8.02 mg/dL (0.0-0.3); CO2 28.7 mmol/L (21.0-32.0); CREATININE 0.9 mg/dL (0.70-1.30); Calcium 7.8 mg/dL (8.5-10.1); Chloride 100 mmol/L (98-107); Ferritin 820 ng/mL (26-388); Glucose 158 mg/dL (74-106); Magnesium 1.9 mg/dL (1.8-2.4); Potassium 4.2 mmol/L (3.5-5.1); Sodium 137 mmol/L (136-145)
[2021-07-31 08:57] LABS: D-Dimer 715 ng/mlFEU (<500)
[2021-07-31 09:04] LABS: Folate 17.6 ng/mL (8.6-20.0); Vitamin B12 642 pg/mL (193-986)
--- NOTE | 2021-07-31 15:52 | PGE_ITS ---
Date of Service Date of service: 07/31/21 Time of Service: 16:04 Assessment and Plan Assessment and plan (1) COVID-19: Status: Acute Assessment and plan: In an unvaccinated individual. With hypoxia. PE ruled out[facility] pulse ox monitororing. Treat with remdesivir, dexamethasone, bronchodilators, antitussives, IS, aceppella, and encourage proning. Supplement vitamin C, D, zinc. GI ppx with pepcid. Procal 0.1. Trend CRP, ferritin, d-dimer. (2) Hypoxia: Status: Acute Assessment and plan: Due to above. As above (3) Essential hypertension: Assessment and plan: Continue diltiazem (4) Thrombocytopenia: Status: Acute Assessment and plan: Due to COVID-19. 101 > 106. While the latest NIH guidelines recommend therapeutic anticoagulation for hospitalized patients on low flow oxygen, his platelet count is borderline, and I only feel comfortable prescribing prophylactic dosing until his platelets improve. (5) Alcohol abuse: Status: Chronic Assessment and plan: patient was advised to decrease his alcohol intake. No h/o EtOH w/d. Last drink 6 days ago. Monitor on CIWA with prn benzodiazepines. Will give thiamine now and MVI/thiamine in am. B12 and folate levels normal. (6) DVT prophylaxis: Status: Acute Assessment and plan: Sc lovenox (7) Discharge planning issues: Status: Acute Assessment and plan: Full code Admit to medsurg floor. Subjective Subjective Patient reports: no new complaints, feels better, tolerating a regular diet and afebrile; denies nausea and vomiting Exam Narrative Exam Narrative: General: Lying in bed on side. Conversational, pleasant. Neurological: A&Ox3, no focal deficits Psychiatric: appropriate speech pattern/content, cooperative. Normal affect. Skin: Seemingly chronic discoloration/hyperpigmentation of the nose with hypertrophy of the skin. no bruises/rashes HEENT: Atraumatic, normocephalic, EOMI, dry MM Cardiovascular: RRR, no murmur Lungs: Diminished breath sounds R base, speaks in full sentences w/o dyspnea. Gastrointestinal: soft, nontender, nondistended Genitourinary: deferred Extremities: no edema, clubbing, or cyanosis of BLE's. Objective Last Vital Signs Temp 37 C 07/31/21 15:48 Pulse 66 07/31/21 15:48 Resp 18 07/31/21 15:48 BP 97/57 L 07/31/21 15:48 Pulse Ox 92 07/31/21 15:48 Laboratory Results - last 24 hr 07/30/21 07/30/21 07/30/21 19:24 19:24 19:24 WBC 3.85 L RBC 5.40 Hgb 15.2 Hct 46.4 MCV 85.9 MCH 28.1 MCHC 32.8 RDW 13.1 Plt Count 101 L MPV 10.6 Immature Gran % 0.3 Neutrophils % 76.1 Lymphocytes % 16.6 Monocytes % 7.0 Eosinophils % 0.0 Basophils % 0.0 Nucleated RBC % 0 Absolute Neutrophils 2.93 Absolute Lymphocytes 0.64 L Absolute Monocytes 0.27 Absolute Eosinophils 0.00 Absolute Basophils 0.00 PT INR D-Dimer 839 H Sodium 136 Potassium 4.0 Chloride 100 Carbon Dioxide 29.2 Anion Gap 6.8 BUN 8 Creatinine 1.0 Estimated GFR/1.73 m2 >= 60.00 Glucose 114 H Hemoglobin A1c Calcium 8.2 L Magnesium 1.9 Ferritin Total Bilirubin 0.4 Conjugated Bilirubin AST 33 ALT 43 Alkaline Phosphatase 79 Troponin I < 50 C-Reactive Protein Total Protein 6.8 Albumin 3.2 L Vitamin B12 Folate Procalcitonin Add-On Test Request 07/30/21 07/30/21 07/30/21 19:24 19:24 19:24 WBC RBC Hgb Hct MCV MCH MCHC RDW Plt Count MPV Immature Gran % Neutrophils % Lymphocytes % Monocytes % Eosinophils % Basophils % Nucleated RBC % Absolute Neutrophils Absolute Lymphocytes Absolute Monocytes Absolute Eosinophils Absolute Basophils PT INR D-Dimer Sodium Potassium Chloride Carbon Dioxide Anion Gap BUN Creatinine Estimated GFR/1.73 m2 Glucose Hemoglobin A1c Calcium Magnesium Ferritin 787 H Total Bilirubin Conjugated Bilirubin AST ALT Alkaline Phosphatase Troponin I C-Reactive Protein 7.23 H Total Protein Albumin Vitamin B12 Folate Procalcitonin 0.1 Add-On Test Request DONE 07/30/21 07/31/21 07/31/21 21:50 08:00 08:00 WBC RBC Hgb Hct MCV MCH MCHC RDW Plt Count MPV Immature Gran % Neutrophils % Lymphocytes % Monocytes % Eosinophils % Basophils % Nucleated RBC % Absolute Neutrophils Absolute Lymphocytes Absolute Monocytes Absolute Eosinophils Absolute Basophils PT INR D-Dimer Sodium 137 Potassium 4.2 Chloride 100 Carbon Dioxide 28.7 Anion Gap 8.3 BUN 11 Creatinine 0.9 Estimated GFR/1.73 m2 >= 60.00 Glucose 158 H Hemoglobin A1c Calcium 7.8 L Magnesium 1.9 Ferritin 820 H Total Bilirubin 0.4 Conjugated Bilirubin 0.1 AST 30 ALT 36 Alkaline Phosphatase 70 Troponin I < 50 C-Reactive Protein 8.02 H Total Protein 6.3 L Albumin 2.9 L Vitamin B12 Folate Procalcitonin Add-On Test Request 07/31/21 07/31/21 07/31/21 08:00 08:00 08:00 WBC 2.63 L D RBC 5.10 Hgb 14.2 Hct 43.6 MCV 85.5 MCH 27.8 MCHC 32.6 RDW 13.0 Plt Count 106 L MPV 10.8 Immature Gran % 0.4 Neutrophils % 79.1 Lymphocytes % 14.4 Monocytes % 6.1 Eosinophils % 0.0 Basophils % 0.0 Nucleated RBC % 0 Absolute Neutrophils 2.08 Absolute Lymphocytes 0.38 L Absolute Monocytes 0.16 Absolute Eosinophils 0.00 Absolute Basophils 0.00 PT 10.4 INR 1.0 D-Dimer 715 H Sodium Potassium Chloride Carbon Dioxide Anion Gap BUN Creatinine Estimated GFR/1.73 m2 Glucose Hemoglobin A1c 5.5 Calcium Magnesium Ferritin Total Bilirubin Conjugated Bilirubin AST ALT Alkaline Phosphatase Troponin I C-Reactive Protein Total Protein Albumin Vitamin B12 Folate Procalcitonin Add-On Test Request 07/31/21 08:00 WBC RBC Hgb Hct MCV MCH MCHC RDW Plt Count MPV Immature Gran % Neutrophils % Lymphocytes % Monocytes % Eosinophils % Basophils % Nucleated RBC % Absolute Neutrophils Absolute Lymphocytes Absolute Monocytes Absolute Eosinophils Absolute Basophils PT INR D-Dimer Sodium Potassium Chloride Carbon Dioxide Anion Gap BUN Creatinine Estimated GFR/1.73 m2 Glucose Hemoglobin A1c Calcium Magnesium Ferritin Total Bilirubin Conjugated Bilirubin AST ALT Alkaline Phosphatase Troponin I C-Reactive Protein Total Protein Albumin Vitamin B12 642 Folate 17.6 Procalcitonin Add-On Test Request
--- NOTE | 2021-07-31 16:27 | PDOC.CMIN ---
- If Service Date Differs Date of service: 07/31/21 Time of Service: 16:38 Care Management Initial Assess REASON FOR HOSPITALIZATION:: COVID-19 with Hypoxia PAST MEDICAL HISTORY/PAST SURGICAL HISTORY:: Medical History . Cardiac arrhythmia, unspecified (06/20/07). Carpal tunnel syndrome on left. Complete tear of right rotator cuff (07/28/16). Contact dermatitis (06/20/07). Depressed bipolar disorder. Essential hypertension. Knee pain, left. Medial epicondylitis, left elbow (05/25/17). Olecranon bursitis, left elbow (05/25/17). Schizophrenia. Skin lesion of neck. Sleep disturbance, unspecified (06/20/07). Umbilical hernia (05/22/13). Surgical History . History of carpal tunnel surgery of left wrist. History of colonoscopy (~05/2021). History of local excision of skin lesion. 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 CURRENT FUNCTIONAL STATUS:: Clyde remains on 2L O2 at this time, he reported using his IS and spoke in full sentences when CM spoke with him on the phone. He stated he has his cell phone and is facetiming with Morris. He is hoping he can discharge home tomorrow. He sounded in good spirits and was talkative and fully engaged with this technical document writer. ADVANCE DIRECTIVES:: None on file. Has patient been provided with info about the portal/API?: Yes Did the patient sign up for the portal?: Yes (Previously ) CODE STATUS:: Full Code INSURANCE COVERAGE / FINANCIAL ISSUES:: Medicaid CURRENT HOME/COMMUNITY SERVICES/EQUIPMENT:: None, currently PRIMARY CARE PHYSICIAN:: Hipolito Vela POTENTIAL DISCHARGE NEEDS:: Follow up appointments. PATIENT/FAMILY EDUCATION NEEDS:: Review of discharge instructions, discuss Ask Me Three. ANTICIPATED BARRIERS TO DISCHARGE:: Respiratory status, monitoring via labs and imaging as well as oxygen requirements. TRANSPORTATION:: Via private vehicle with his , Morris. PLAN:: Clyde will return home when ready per MD. He would like to return home as soon as possible, and stated he was hopeful that he could discharge tomorrow. He remains on 2L O2 at this time, CM continues to follow. Clyde will transport via private vehicle with Morris, follow up with his PCP and plan of care as prescribed.
[2021-08-01 01:15] LABS: Vitamin D 25 Total 18.6 ng/mL (30-100)
[2021-08-01 03:00] VITALS: PULSE 67; RESP 22; O2SAT 93
[2021-08-01 06:57] LABS: Abs Immature Grans 0.03 10^3/uL (0.0-0.06); Absolute Lymphocyte Count 0.77 10^3/uL (1.2-3.4); Absolute Monocyte Count 0.55 10^3/uL (0.1-0.8); Absolute Neutrophil Count 7.11 10^3/uL (1.2-6.7); HGB 14.5 g/dL (13.5-17.5); Immature Grans % 0.4; Lymphocytes % 9.1; MCH 27.6 pg (27.0-33.0); MCV 83.7 fL (80-95); MPV 10.9 fL (8.0-11.0); Monocytes % 6.5; Nucleated RBC 0 %; Platelet Count 152 10^3/uL (130-400); RBC 5.26 10^6/uL (4.36-5.78); RDW 12.8 % (11.8-14.1); RDW-SD 39.1 fL; WBC 8.46 10^3/uL (4.4-10.8)
[2021-08-01 07:00] VITALS: PULSE 81
[2021-08-01 07:11] LABS: C-Reactive Protein 4.51 mg/dL (0.0-0.3)
[2021-08-01 07:29] LABS: D-Dimer 733 ng/mlFEU (<500)
[2021-08-01] MEDS: Enoxaparin 40 MG/0.4 ML SYR SC (07:42)
[2021-08-01] MEDS: Ipratropium/Albuterol 4 GM 120 PUFF INH IH ×2 (07:43→13:25)
[2021-08-01] MEDS: Famotidine 20 MG TAB PO (07:44)
[2021-08-01] MEDS: Multivitamin TAB 1 TAB PO (07:44)
[2021-08-01] MEDS: Thiamine 100 MG TAB PO (07:44)
[2021-08-01] MEDS: Zinc Sulfate 220 MG TAB PO (07:44)
[2021-08-01] MEDS: Cholecalciferol (Vitamin D3) 1,000 UNIT TAB 2000 UNITS PO (07:44)
[2021-08-01] MEDS: Dexamethasone 4 MG TAB 6 MG PO (07:44)
[2021-08-01] MEDS: Benzonatate 200 MG CAP PO ×2 (07:44→13:25)
[2021-08-01] MEDS: Ascorbic Acid 500 MG TAB 1000 MG PO (07:44)
[2021-08-01] MEDS: Folic Acid 1 MG TAB PO (07:45)
[2021-08-01] MEDS: Citalopram 20 MG TAB 40 MG PO (07:45)
[2021-08-01] MEDS: dilTIAZem CD 120 MG CAPCR 240 MG PO (07:45)
[2021-08-01] MEDS: guaiFENesin 600 MG TABCR PO (07:45)
[2021-08-01 07:50] VITALS: BP 103/76; PULSE 73; RESP 18; TEMP 36.7; O2SAT 94
--- NOTE | 2021-08-01 10:11 | CMPROGNOTE_ITS ---
- If Service Date Differs Date of service: 08/01/21 Time of Service: 10:11 Care Management Progress Note S/O: RT working on getting patient home O2. Anticipated discharge today. CM will continue to follow. A: 50 year old male admitted to [facility] on 07/30/21 for Covid-19 with hypoxia P:Clyde will return home when ready per MD. He would like to return home as soon as possible, and stated he was hopeful that he could discharge tomorrow. He remains on 2L O2 at this time, CM continues to follow. Clyde will transport via private vehicle with Morris, follow up with his PCP and plan of care as prescribed.
[2021-08-01 10:55] VITALS: PULSE 71; PULSE 72; PULSE 77; RESP 20; RESP 22; RESP 24; O2SAT 86; O2SAT 90; O2SAT 91; O2SAT 93
--- NOTE | 2021-08-01 12:01 | W.PM.DS.N ---
Date of service: 08/01/21 Time of Service: 12:01 DS: Diagnosis Discharge Diagnosis (1) COVID-19: Status: Acute (2) Hypoxia: Status: Acute (3) Essential hypertension: (4) Thrombocytopenia: Status: Acute (5) Alcohol abuse: Status: Chronic (6) DVT prophylaxis: Status: Acute (7) Discharge planning issues: Status: Acute Discharge Plan Disposition Patient Disposition: HOME Condition: Fair Discharge Details Reason For Visit: COVID-19 WITH HYPOXIA Admit Date/Time: 07/30/21 21:38 Admit Provider: Lauryn Arredondo Attending Provider: Lauryn Arredondo Primary Care Provider: Hipolito Vela Hospital Course Hospital Course: Follow up with PCP in 1-2 weeks. Home Meds and New Rx's Prescriptions: New multivitamin [Multiple Vitamins] Tablet 1 tab PO QAM Qty: 0 RF: 0 ascorbic acid (vitamin C) [Vitamin C] 500 mg Tablet 1,000 mg PO BID Qty: 0 RF: 0 cholecalciferol (vitamin D3) 25 mcg (1,000 unit) Tablet 2,000 units PO DAILY Qty: 0 RF: 0 prednisone 20 mg tablet 40 mg PO DAILY Qty: 6 RF: 0 Continued diltiazem HCl 240 mg capsule,extended release 24 hr 240 mg PO DAILY Qty: 90 RF: 3 citalopram 40 mg tablet 40 mg PO DAILY Qty: 90 RF: 3 sildenafil (pulm.hypertension) 20 mg tablet 20 - 100 mg PO DAILY PRN (Reason: sexual activity) Qty: 30 RF: 5 hydrocodone-acetaminophen 5-325 mg tablet 1 tab PO Q6H PRN (Reason: severe pain) Qty: 6 RF: 0 acetaminophen 500 mg tablet 500 mg PO Q6H PRN (Reason: pain) Qty: 60 RF: 2 ibuprofen 600 mg tablet 600 mg PO TID PRN (Reason: pain) Qty: 60 RF: 0 Discontinued Paxlovid (EUA) 300 mg (150 mg x 2)-100 mg tablet See Rx Instructions PO PER PKG DIR Qty: 30 RF: 0 Discharge Instructions Instructions: Prednisone (By mouth) Activity:: Activity as Tolerated Equipment/Supplies:: No Equipment Needed Diet:: Resume usual diet Discharge Orders Discharge Orders: Discharge Order (Routine); Ordered 08/01/21 Ordered By: Eugene Veliz DS: Summary Time Spent with Patient providing and/or coordinating discharge services: Greater than 30 minutes Status at Discharge Functional status at discharge: independent ambulation Overall status at discharge: patient is progressing back to baseline Mental Status: mental status grossly normal Speech and Movement: speech and movement normal Mood: congruent mood Affect: normal affect Exam Narrative Exam Narrative: General: Lying in bed on side. Conversational, pleasant. Neurological: A&Ox3, no focal deficits Psychiatric: appropriate speech pattern/content, cooperative. Normal affect. Skin: Seemingly chronic discoloration/hyperpigmentation of the nose with hypertrophy of the skin. no bruises/rashes HEENT: Atraumatic, normocephalic, EOMI, dry MM Cardiovascular: RRR, no murmur Lungs: Diminished breath sounds R base, speaks in full sentences w/o dyspnea. Gastrointestinal: soft, nontender, nondistended Genitourinary: deferred Extremities: no edema, clubbing, or cyanosis of BLE's. Psych Mental Status: mental status grossly normal Speech and Movement: speech and movement normal Mood: congruent mood Affect: normal affect DS: Data Vitals/I&O Vitals and I&O: Vital Signs Temperature 36.7 C 08/01/21 07:50 Temperature Source Tympanic 08/01/21 07:50 Pulse 73 08/01/21 07:50 Pulse Rhythm Regular 08/01/21 09:46 Respiratory Rate 18 08/01/21 07:50 Respiratory Effort Non-Labored 08/01/21 09:46 Respiratory Depth Normal 08/01/21 09:46 Respiratory Pattern Normal 08/01/21 09:46 Blood Pressure 103/76 08/01/21 07:50 Blood Pressure Position Supine 07/30/21 19:06 Pulse Oximetry 94 08/01/21 07:50 Oxygen Delivery Method Nasal Cannula 08/01/21 07:50 Oxygen Flow Rate 1 08/01/21 07:50 Pain Level 0 08/01/21 07:50 Comment 07/30/21 22:54 Intake & Output 07/31/21 08/01/21 08/01/21 23:59 11:59 23:59 Intake Total 500 / 1151 600 / 600 Balance 500 / 151 600 / 600 Intake: IV 100 / 100 Oral 500 / 800 500 / 500 Other: Urine Color Yellow Voiding Methods Toilet Data Completed and Pending Labs on day of discharge: Labs from last 24 hours 08/01/21 08/01/21 08/01/21 06:25 06:25 06:25 WBC 8.46 D RBC 5.26 Hgb 14.5 Hct 44.0 MCV 83.7 MCH 27.6 MCHC 33.0 RDW 12.8 Plt Count 152 MPV 10.9 Immature Gran % 0.4 Neutrophils % 84.0 Lymphocytes % 9.1 Monocytes % 6.5 Eosinophils % 0.0 Basophils % 0.0 Nucleated RBC % 0 Absolute Neutrophils 7.11 H Absolute Lymphocytes 0.77 L Absolute Monocytes 0.55 Absolute Eosinophils 0.00 Absolute Basophils 0.00 D-Dimer 733 H C-Reactive Protein 4.51 H 25-OH Vitamin D Total 07/31/21 08:00 WBC RBC Hgb Hct MCV MCH MCHC RDW Plt Count MPV Immature Gran % Neutrophils % Lymphocytes % Monocytes % Eosinophils % Basophils % Nucleated RBC % Absolute Neutrophils Absolute Lymphocytes Absolute Monocytes Absolute Eosinophils Absolute Basophils D-Dimer C-Reactive Protein 25-OH Vitamin D Total 18.6 L PFSH All Active Problems Alcohol abuse (Chronic) Discharge planning issues (Acute) DVT prophylaxis (Acute) Thrombocytopenia (Acute) Hypoxia (Acute) COVID-19 (Acute ~07/2021) Left carpal tunnel syndrome (Acute) Normal colonoscopy (Acute ~05/2021) Cubital tunnel syndrome on left (Acute) Schizophrenia (Chronic 09/11/07) Depressive disorder (Chronic 06/20/07) Depressed bipolar I disorder (Chronic 09/11/07) Essential hypertension with goal blood pressure less than 130/80 (Acute) stop lisinopril start diltiazem Erectile 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 (Acute) prn sildenafil--discussed ADRs including persistent erection Neck pain on right side (Acute) Hip pain, right (Acute) Screening for colon cancer (Acute) Bilateral carpal tunnel syndrome (Acute) Medical History Cardiac arrhythmia, unspecified (06/20/07) Carpal tunnel syndrome on left Complete tear of right rotator cuff (07/28/16) Contact dermatitis (06/20/07) Depressed bipolar disorder Essential hypertension Knee pain, left Medial epicondylitis, left elbow (05/25/17) Olecranon bursitis, left elbow (05/25/17) Schizophrenia Skin lesion of neck Sleep disturbance, unspecified (06/20/07) Umbilical hernia (05/22/13) Surgical History History of carpal tunnel surgery of left wrist History of colonoscopy (~05/2021) History of local excision of skin lesion left side of neck Jul 2019 Hx of shoulder surgery Incision, Tendon Sheath right rotator cuff repair and biceps tendosis. Removal of foreign body from eye S/P cubital tunnel release left Status post arthroscopy of left knee (08/19/19) Status post medial and lateral partial meniscectomies UPPP (Uvulopalatopharyngoplasty) Family History Mother Alcohol abuse Father Depression Sister No problems noted. Sister Alcohol abuse Maternal Grandfather Alcohol abuse Paternal Grandfather No problems noted. Maternal Grandmother Diabetes Alcohol abuse Paternal Grandmother No problems noted. Social History Smoking/Tobacco Use Status: Current every day Tobacco Type: cigarettes and smokeless tobacco Smokeless tobacco user: chewing tobacco Quit status: has quit before Second Hand Exposure: Yes Smoking risk assessment performed?: Yes Alcohol Intake: current Alcohol Intake frequency: a few times a week Alcohol type: beer Counseling given: Yes Counseling provided: provider counseling and reduce to 2 or less/day Drug use: Never Substance use type: does not use Details: alcohol yesterday Caregiver/Support person: No Household members: spouse and children Housing: house Communication Needs: None Do you need help understanding health information?: Never Pets and animals: Yes Pets and animals: dog(s) Sexually active: Yes Do you think of yourself as: straight/heterosexual Current gender identity: male What is your relationship status?: How often do you talk on the phone with friends or family?: three or more times per week How often do you get together with friends or relatives?: once per week How often do you attend faith or confucianist services?: 1-3 times per year Do you belong to any clubs or organized social groups?: no Panel score (0-1 are the most socially isolated patients): 2 What type of physical activity do you participate in: walking Duration: > 90 minutes/day Frequency: daily Gypsy/Caodaism: [employer] Special gypsy needs: No Seatbelt use: never Helmet use: No Drive intox or ride 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
--- NOTE | 2021-08-01 12:39 | PDOC.CMDIS ---
- If Service Date Differs Date of service: 08/01/21 Time of Service: 12:39 LACE Index Scoring Tool - Questions: Length of Stay (in days): 2 Acuity (Admit via E.D.?): Yes E.D. Visits: 1 - Answers: Total Score: 6 Risk of Readmission: Low Risk Care Management Discharge Reason for Hospitalization: COVID-19 with Hypoxia Discharge Plan: Discharge home with new home O2 through [facility], [place]. Take medications as directed. Transportation via private vehicle with family. Follow up with community providers and discharge plan of care as prescribed. Patient/Family Education Needs: Review discharge instructions, limitations, medications and plan to follow up with community providers. ask me three. Services Needed at Discharge: Oxygen Therapy (RT coordinated through [facility], [place])
[2021-08-01 13:23] VITALS: BP 107/72; PULSE 76; RESP 18; TEMP 36.4; O2SAT 94
--- NOTE | 2021-08-02 02:51 | NUR.NOTE ---
Nursing Note: called concerned about pt's oxygen saturation. She states that saturation is in the 70's and he is no sleeping. Advised her that if he is struggling to get oxygen and the saturation is that low then he should be re-evaluated.
== END 2021-08-01 14:30 | disposition home or self-care (01) | DRG 179 ==
LOC: ER 21:40 → MS 22:53
PROVIDERS: Family Medicine; Admitting Provider Internal Medicine; Emergency Provider Nurse Practitioner Family; PCP Family Medicine; Visit Provider Internal Medicine
DX: U07.1 COVID-19 (principal); R09.02 Hypoxemia; I10 Essential (primary) hypertension; D69.6 Thrombocytopenia, unspecified; F10.10 Alcohol abuse, uncomplicated; F20.9 Schizophrenia, unspecified; F41.9 Anxiety disorder, unspecified; E66.9 Obesity, unspecified; Z68.33 Body mass index [BMI] 33.0-33.9, adult
CPT/HCPCS: 36415; 71275; 80048; 80053; 80076; 82306; 84145; 93005; 94618; 94640; 96361; 96374; 96375; 99285; J1650; 82607; 82728; 82746; 83036; 83735; 84484; 85025; 85379; 85610; 86140; 93010; 99223; 99233; 99239; J0131; J0248; J1100; J3490; J7613; J8540

== ENCOUNTER 2021-08-02 04:59 | Inpatient (IN) | payer MEDICAID, SELFPAY ==
[2021-08-02] VITALS (85 sets, daily range): BP systolic 118–158; BP diastolic 64–88; PULSE 27–77; RESP 7–37; TEMP 36.3–37.7; O2SAT 76–97
--- NOTE | 2021-08-02 05:15 | RT.EKG_ITS ---
APPROVED REPORT Exam: Resting ECG Reason for Exam: shortness of breath Patient Location: E HR:67 bpm ECG Measurements Heart Rate 67 AXIS VA 153 P 14 QRSd 90 QRS 26 QT 436 T 38 QTc 462 Conclusion Sinus rhythm...normal P axis, V-rate 60- 99
--- NOTE | 2021-08-02 05:15 | DI.RAD_ITS ---
Exam(s) XR PORTABLE CHEST AP EXAM: XR PORTABLE CHEST AP CLINICAL HISTORY: shortness of breath. TECHNIQUE: 2D digital imaging was performed. COMPARISON: CR RIGHT SHOULDER COMPLETE from 09/12/[address] CHEST PE CTA from 07/30/2021 FINDINGS: Heart size is upper normal. The mediastinum is not widened. Extensive bilateral pulmonary infiltrates are noted. No radiographic improvement when compared to re cent CT scan 07/30/2021. No pleural effusions. No pneumothorax IMPRESSION: Extensive bilateral pulmonary infiltrates.No improvement. DATA REPOSITORY: RADIATION DOSE DELIVERED: All CT scans at this facility use at least one of these dose optimization techniques: automated exposure control; mA and/or kV adjustment per patient size (includes targeted e xams where dose is matched to clinical indication); or iterative reconstruction.
--- NOTE | 2021-08-02 05:31 | ED.GENADUL_ITS ---
Discharge Plan Disposition Patient Disposition: [facility] INPATIENT Condition: Stable Discharge Details Chief Complaint: SOB Clinical Impression: Hypoxia, COVID-19 Primary Care Provider: Hipolito Vela ED Provider: Donnell Love Home Meds and New Rx's Prescriptions: No Action diltiazem HCl 240 mg capsule,extended release 24 hr 240 mg PO DAILY Qty: 90 RF: 3 citalopram 40 mg tablet 40 mg PO DAILY Qty: 90 RF: 3 sildenafil (pulm.hypertension) 20 mg tablet 20 - 100 mg PO DAILY PRN (Reason: sexual activity) Qty: 30 RF: 5 multivitamin [Multiple Vitamins] Tablet 1 tab PO QAM Qty: 0 RF: 0 ascorbic acid (vitamin C) [Vitamin C] 500 mg Tablet 1,000 mg PO BID Qty: 0 RF: 0 cholecalciferol (vitamin D3) 25 mcg (1,000 unit) Tablet 2,000 units PO DAILY Qty: 0 RF: 0 prednisone 20 mg tablet 40 mg PO DAILY Qty: 6 RF: 0 acetaminophen 500 mg tablet 500 mg PO Q6H PRN (Reason: pain) Qty: 60 RF: 2 ibuprofen 600 mg tablet 600 mg PO TID PRN (Reason: pain) Qty: 60 RF: 0 Medical Decision Making 50 yo male just discharged yesterday after being admitted for hypoxia secondary to covid who is not vaccinated returns with increased shortness of breath. Vivi was unable to provide him with oxygen yesterday and per patient might be able to today. Has had increased shortness of breath since discharge. No chest pressure, diaphoresis, n/v. He had a negative cta during his admission for pe, did show evidence of covid pna. He has wheezing at the bases bilaterally on exam, no jvd, no calf tenderness or leg swelling. I suspect this is worsening covid and is currently requiring 10L, apparently was only requiring 1-2L yesterday. Given negative cta recently doubt PE and no evidence of dvt on exam. Will obtain basic labs and administer duoneb and dexamethasone and reassess. He was noted to be 76% on room air on arrival pt tolerating nasal cannula well, not having visible dyspnea at rest, labs unremarkable xray shows worsening infiltrates, will discuss with hospitalist about admission Differential Diagnosis Differential Diagnosis: covid, pneumonia Medical Records Medical records reviewed: Yes I reviewed the patient's medical records. Lab Data Lab results reviewed: Yes I reviewed the patient's lab results. ECG Data Attestation: I personally reviewed and interpreted this ECG (s) as follows: Prior ECG tracings: available for review Interpretation: sinus rhythm, rate of [address] t wave ischemic findings HPI General Mode of arrival: wheelchair . Date/Time Provider Initiated Documentation: 08/02/21 05:00 . Limitations to Documentation: no limitations . Information obtained by: patient . History of Present Illness 50 year old M presents to the emergency department with the chief complaint of shortness of breath, described as moderate, Patient started experiencing this day(s) (6) and it has been constant. No relieving factors improve symptom(s), No exacerbating factors reported . Patient notes cough. Patient did receive the following treatments prior to arrival, none Related Data Home Medications Medication Instructions Recorded Confirmed diltiazem HCl 240 mg capsule,24 240 mg PO DAILY #90 cap 10/13/20 08/02/21 hr,extended release citalopram 40 mg tablet 40 mg PO DAILY #90 tab 03/11/21 08/02/21 sildenafil (pulm.hypertension) 20 20 - 100 mg PO DAILY PRN #30 tab 03/24/21 08/02/21 mg tablet acetaminophen 500 mg PO Q6H PRN #60 tab 07/20/21 07/30/21 ibuprofen 600 mg PO TID PRN #60 tab 07/20/21 08/02/21 ascorbic acid (vitamin C) [Vitamin 1,000 mg PO BID #0 tab 08/01/21 C] cholecalciferol (vitamin D3) 2,000 units PO DAILY #0 tab 08/01/21 08/02/21 multivitamin [Multiple Vitamins] 1 tab PO QAM #0 tab 08/01/21 08/02/21 prednisone 40 mg PO DAILY #6 tab 08/01/21 08/02/21 Previous Rx's Medication Instructions Recorded diltiazem HCl 240 mg capsule,24 240 mg PO DAILY #90 cap 10/13/20 hr,extended release citalopram 40 mg tablet 40 mg PO DAILY #90 tab 03/11/21 sildenafil (pulm.hypertension) 20 20 - 100 mg PO DAILY PRN #30 tab 03/24/21 mg tablet acetaminophen 500 mg PO Q6H PRN #60 tab 07/20/21 ibuprofen 600 mg PO TID PRN #60 tab 07/20/21 ascorbic acid (vitamin C) [Vitamin 1,000 mg PO BID #0 tab 08/01/21 C] cholecalciferol (vitamin D3) 2,000 units PO DAILY #0 tab 08/01/21 multivitamin [Multiple Vitamins] 1 tab PO QAM #0 tab 08/01/21 prednisone 40 mg PO DAILY #6 tab 08/01/21 Allergies Allergy/AdvReac Type Severity Reaction Status Date / Time mirtazapine AdvReac Severe PROFOUND Verified 08/02/21 05:16 BRADYCARDIA General Stated Complaint: SOB BEVERLY: 2 Review of Systems All systems reviewed & are unremarkable except as noted in HPI and below Constitutional Constitutional: Denies chills ENT Ears, Nose, Mouth, and Throat: Denies change in voice Cardiovascular Cardiovascular: Denies chest pain Gastrointestinal Gastrointestinal: Denies abdominal pain, Denies nausea and Denies vomiting Musculoskeletal Musculoskeletal: Denies joint swelling Psychiatric Psychiatric: Denies depression PFSH All Active Problems (Updated 08/02/21 @ 07:00 by Donnell Love MD) Alcohol abuse (Chronic) Hypoxia (Acute) COVID-19 (Acute ~07/2021) Left carpal tunnel syndrome (Acute) Normal colonoscopy (Acute ~05/2021) Cubital tunnel syndrome on left (Acute) Schizophrenia (Chronic 09/11/07) Depressive disorder (Chronic 06/20/07) Depressed bipolar I disorder (Chronic 09/11/07) Essential hypertension with goal blood pressure less than 130/80 (Acute) stop lisinopril start diltiazem Erectile 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 (Acute) prn sildenafil--discussed ADRs including persistent erection Neck pain on right side (Acute) Hip pain, right (Acute) Screening for colon cancer (Acute) Bilateral carpal tunnel syndrome (Acute) Medical History Cardiac arrhythmia, unspecified (06/20/07) Carpal tunnel syndrome on left Complete tear of right rotator cuff (07/28/16) Contact dermatitis (06/20/07) Depressed bipolar disorder Essential hypertension Knee pain, left Medial epicondylitis, left elbow (05/25/17) Olecranon bursitis, left elbow (05/25/17) Schizophrenia Skin lesion of neck Sleep disturbance, unspecified (06/20/07) Umbilical hernia (05/22/13) Surgical History History of carpal tunnel surgery of left wrist History of colonoscopy (~05/2021) History of local excision of skin lesion left side of neck Jul 2019 Hx of shoulder surgery Incision, Tendon Sheath right rotator cuff repair and biceps tendosis. Removal of foreign body from eye S/P cubital tunnel release left Status post arthroscopy of left knee (08/19/19) Status post medial and lateral partial meniscectomies UPPP (Uvulopalatopharyngoplasty) Family History Mother Alcohol abuse Father Depression Sister No problems noted. Sister Alcohol abuse Maternal Grandfather Alcohol abuse Paternal Grandfather No problems noted. Maternal Grandmother Diabetes Alcohol abuse Paternal Grandmother No problems noted. Social History Smoking/Tobacco Use Status: Current every day Tobacco Type: smokeless tobacco Smokeless tobacco user: chewing tobacco Quit status: has quit before Second Hand Exposure: Yes Smoking risk assessment performed?: Yes Alcohol Intake: current Alcohol Intake frequency: a few times a week Alcohol type: beer Counseling given: Yes Counseling provided: provider counseling and reduce to 2 or less/day Drug use: Never Substance use type: does not use Details: alcohol yesterday Caregiver/Support person: No Household members: spouse and children Housing: house Communication Needs: None Do you need help understanding health information?: Never Pets and animals: Yes Pets and animals: dog(s) Sexually active: Yes Do you think of yourself as: straight/heterosexual Current gender identity: male What is your relationship status?: How often do you talk on the phone with friends or family?: three or more times per week How often do you get together with friends or relatives?: once per week How often do you attend denominational or taoist services?: 1-3 times per year Do you belong to any clubs or organized social groups?: no Panel score (0-1 are the most socially isolated patients): 2 What type of physical activity do you participate in: walking Duration: > 90 minutes/day Frequency: daily Gypsy/Jewish: Religion Special gypsy needs: No Seatbelt use: never Helmet use: No Drive intox 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 Do you feel safe at home: Yes Do you feel safe in your relationship?: Yes Additional Social history: The patient denies smoking to me, though it is mentioned in his chart as active Exam Const General: no acute distress Orientation: alert [facility] Head: normal to inspection Ears: external ears normal General nose exam: external nose normal Mouth: moist mucous membranes Eyes General: appearance normal, both eyes and all related structures Neck Neck: normal visual inspection Resp Auscultation: no rales Cardio Rate: regular rate Skin General skin exam: no rashes or lesions noted Neuro General: patient alert and patient oriented x3 Extrem General: normal to inspection Psych Mental Status: mental status grossly normal Course Vital Signs Vital signs: Vital Signs Temperature 36.3 C L 08/02/21 05:11 Pulse 65 08/02/21 05:11 Respiratory Rate 35 H 08/02/21 05:11 Blood Pressure 141/70 H 08/02/21 05:11 Pulse Oximetry 76 L 08/02/21 05:11 Temperature 36.3 C L 08/02/21 05:11 Temperature Source Skin 08/02/21 05:11 Pulse 65 08/02/21 05:11 Respiratory Rate 32 H 08/02/21 05:17 Respiratory Effort Labored 08/02/21 05:17 Respiratory Depth Shallow 08/02/21 05:17 Respiratory Pattern Tachypnea 08/02/21 05:17 Blood Pressure 141/70 H 08/02/21 05:11 Pulse Oximetry 76 L 08/02/21 05:11 Oxygen Delivery Method Room Air 08/02/21 05:11 Oxygen Flow Rate 0 08/02/21 05:11 Pain Level 3 08/02/21 05:11 Comment 08/02/21 05:11 PAWSS Have you Been Recently Intoxicated or Drunk Within the Last 30 days?: No Have you Ever Experienced Previous Episodes of Alcohol Withdrawal?: No Have you ever Experienced Withdrawal Seizures?: No Have you ever Experienced Delirium Tremens(DT)s?: No Have you ever undergone Alcohol Rehabilitation Treatment (i.e, inpt ot outpatient treatment programs)?: No Have you ever Experienced Blackouts?: No Have you ever Combined Alcohol with other Downers within the last 90 days?: No Have you ever Combined Alcohol with any other Substance of Abuse during the last 90 days?: No Positive Blood Alcohol level on Presentation? [PCS.BAL]: No Evidence of Increased Autonomic Activity (i.e. HR>120, tremor, sweating, agitation, nausea)?: No Result: 0
[2021-08-02 05:37] LABS: BE (Venous) 6 mmol/L (-2-3); HCO3 (Venous) 30 mmol/L (23-28); O2 Sat (Venous) 68 %; TCO2 (Venous) 27 mmol/L (24-29); pCO2 (Venous) 45 mmHg (41-51); pH (Venous) 7.43 (7.31-7.41); pO2 (Venous) 35 mmHg
[2021-08-02 05:38] LABS: Abs Immature Grans 0.05 10^3/uL (0.0-0.06); Absolute Basophil Count 0.01 10^3/uL (0.0-0.2); Absolute Lymphocyte Count 0.53 10^3/uL (1.2-3.4); Absolute Monocyte Count 0.66 10^3/uL (0.1-0.8); Absolute Neutrophil Count 6.77 10^3/uL (1.2-6.7); Basophils % 0.1; HCT 43.5 % (40.0-50.0); HGB 14.3 g/dL (13.5-17.5); Immature Grans % 0.6; Lymphocytes % 6.6; MCH 27.9 pg (27.0-33.0); MCHC 32.9 % (32.0-36.0); MPV 10.6 fL (8.0-11.0); Monocytes % 8.2; Neutrophils % 84.5; Nucleated RBC 0 %; Platelet Count 172 10^3/uL (130-400); RBC 5.12 10^6/uL (4.36-5.78); RDW 12.6 % (11.8-14.1); RDW-SD 39.6 fL; WBC 8.02 10^3/uL (4.4-10.8)
[2021-08-02] MEDS: Dexamethasone 10 MG/ML VIAL IVP (05:46)
[2021-08-02 05:52] LABS: ALT 38 U/L (16-63); AST 29 U/L (15-37); Albumin 2.8 g/dL (3.4-5.0); Alkaline Phosphatase 67 U/L (46-116); Anion Gap 6.1 mmol/L (3-11); BUN 17 mg/dL (7-18); Bilirubin, Total 0.4 mg/dL (0.2-1.0); CO2 28.9 mmol/L (21.0-32.0); CREATININE 0.8 mg/dL (0.70-1.30); Calcium 8.2 mg/dL (8.5-10.1); Chloride 101 mmol/L (98-107); Glucose 166 mg/dL (74-106); Potassium 4.3 mmol/L (3.5-5.1); Sodium 136 mmol/L (136-145); Total Protein 6.2 g/dL (6.4-8.2)
[2021-08-02] MEDS: Albuterol/Ipratropium 3 ML UPD VIAL UPD (06:02)
--- NOTE | 2021-08-02 06:21 | DI.VRAD_ITS ---
PROCEDURE INFORMATION: Exam: XR Chest Exam date and time: 08/02/2021 5:30 AM Age: 50 years old Clinical indication: Shortness of breath TECHNIQUE: Imaging protocol: XR of the chest. Views: 1 view. COMPARISON: CT CHEST PE CTA 07/30/2021 8:22 PM FINDINGS: Lungs: Moderate to severe interstitial opacities greater on the left. Pleural spaces: No pleural effusion. No pneumothorax. Heart/Mediastinum: Mild cardiomegaly. Bones/joints: Unremarkable. IMPRESSION: Moderate to severe pneumonitis appears increased since the prior study Dictated and Authenticated by: Greg Escobar MD. Ordering:PETER Jacobo MD
[2021-08-02 08:00] LABS: Lab Add On Test DONE
[2021-08-02 08:09] LABS: C-Reactive Protein 2.77 mg/dL (0.0-0.3)
[2021-08-02 08:27] LABS: Procalcitonin 0.1 ng/mL
[2021-08-02 08:37] LABS: D-Dimer 716 ng/mlFEU (<500)
[2021-08-02] MEDS: Enoxaparin 120 MG/0.8 ML SYR SC ×2 (08:54→21:19)
--- NOTE | 2021-08-02 10:58 | NUR.NOTE ---
0818: Pt arrived from the ED via stretcher, see shift assessment for arrival assessment.
--- NOTE | 2021-08-02 12:29 | DI.CT_ITS ---
Exam(s) CT CHEST PE CTA EXAM: CT CHEST PE CTA CLINICAL HISTORY: acute resp failure. Covid PNA. TECHNIQUE: Imaging Protocol: CT angiography of the chest was performed using pulmonary embolus rachelle col. Multi planar reconstructions were performed. CONTRAST MATERIAL: Intravenous: Omnipaque 350 Contrast volume: 100 cc COMPARISON: CT CT CHEST PE CTA from 07/30/2021 FINDINGS: CHEST: PULMONARY ARTERIES: There are no intraluminal filling defects to suggest acute pulmonary emboli. LUNGS: No radiographic improvement in the extensive bilateral infiltrates. . Indeed, these are more prominent than on the prior CT scan 3 days ago. No cavitation there are no associated pleural effus ions. No focal findings in trachea and mainstem bronchi. MEDIASTINUM: Mild bilateral hilar adenopathy. Also subcarinal adenopathy. No adenopathy in the ante rior mediastinal fat.Visualized thyroid unremarkable. CARDIAC: Heart size is upper normal. There is no pericardial effusion.Caliber of the thoracic aorta is within normal limits. There is no significant shift of the interventricular septum. PARTIALLY VISUALIZED UPPERMOST ABDOMEN: There are multiple small hypodensities in the liver which do not have the appearance of simple cysts. However, appear unchanged from 07/30/2021. Cannot be furth er characterized on this type examination. OSSEOUS: No significant osseous lesions.. IMPRESSION: 1. Compared to the CT scan of 07/30/2021 there is further worsening of the extensive bilateral pulmon tatiana infiltrates. There is no cavitation.No pleural effusions. 2. No evidence of acute pulmonary emboli. 3. Hilar and mediastinal adenopathy is evident, this commensurate with the amount of bilateral infil trates. Multiple small hypodensities are again noted in the liver which cannot be further characterized with this type of single passed arterial phase CT examination but are doubtful for simple cysts. These ap pear unchanged from the CT scan performed 3 days ago. RADIATION DOSE DELIVERED: 589.55mGy.cm Total DLP DATA REPOSITORY: All CT scans at this facility are submitted to the National Radiology Data Registry (NRDR) Dose Index Registry (DIR) with the [employer] (ACR). RADIATION OPTIMIZATION: All CT scans at this facility use at least one of these dose optimization te chniques: automated exposure control; mA and/or kV adjustment per patient size (includes targeted exa ms where dose is matched to clinical indication); or iterative reconstruction.
[2021-08-02] MEDS: Omnipaque 350 MG/ML 100 ML BTL 86 ML IJ (12:39)
--- NOTE | 2021-08-02 14:30 | HPE_ITS ---
Date of service: 08/02/21 Time of Service: 14:31 Assessment and Plan Assessment and plan (1) Alcohol abuse: Status: Chronic Assessment and plan: No history of alcohol withdrawal. Watch for signs/sxs of withdrawal and if develop, initiate CIWA protocol then. (2) COVID-19: Status: Acute Assessment and plan: Increased ground-glass opacities on CTA chest. No pulmonary emboli noted. Procalcitonin normal so doubt a superimposed bacterial infection. Increased hypoxia. Dexamethasone and remdesivir. Sotrovimab 500mg IV x 1. CPAP with O2 per high-flow NC breaks. (3) Acute respiratory failure: Status: Acute Assessment and plan: Admitted on 07/30/21, discharged on 08/01/21 for COVID 19 PNA His exercise oximetry on day of d/c showed no requirements at rest and 3L with activity. The oxygen supply could not be delivered on the day of d/c but it was thought he would do OK if he remained very sedentary. Unfortunately, his resting O2 saturations began to decline into the 70's and he developed shortness of air. Continuous O2 with CPAP, high-flow O2. Consult Pulmonary medicine. (4) Depressed bipolar I disorder: Status: Chronic Assessment and plan: Affect is appropriate. Cont citalopram. History of Present Illness History of Present Illness Chief Complaint: Shortness of breath Narrative: This is a 50 yo male that was discharged from [facility] the day prior to this admission; hospitalized then for COVID-19 pneumonia. He initially required 2L supplemental O2 per NC. He was treated with Remdesivir, dexamethasone, CPAP at night per his norm. His procalcitonin was normal. He improved and on day of discharge his resting RA O2 saturations were normal. He did qualify for 3L supplemental O2 with ambulation. The oxygen provider could not deliver the home O2 on the day he was discharged, but he wanted to go home with the caveat that he only ambulate to and from the bathroom until his oxygen was delivered. He was discharged on a burst of prednisone. He presented back to the ED with worsening SOA. He denied CP/pressure, F/C, N/V. In the ED he had bibasilar wheezes. His RA O2 saturation was 76%. He improved with 10L O2 per NC, then changed to high-flow NC system. Review of Systems All systems reviewed & are unremarkable except as noted in HPI and below PFSH All Active Problems (Updated 08/02/21 @ 15:11 by Eugene Veliz MD) Acute respiratory failure (Acute) Alcohol abuse (Chronic) Hypoxia (Acute) COVID-19 (Acute ~07/2021) Left carpal tunnel syndrome (Acute) Normal colonoscopy (Acute ~05/2021) Cubital tunnel syndrome on left (Acute) Schizophrenia (Chronic 09/11/07) Depressive disorder (Chronic 06/20/07) Depressed bipolar I disorder (Chronic 09/11/07) Essential hypertension with goal blood pressure less than 130/80 (Acute) stop lisinopril start diltiazem Erectile 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 (Acute) prn sildenafil--discussed ADRs including persistent erection Neck pain on right side (Acute) Hip pain, right (Acute) Screening for colon cancer (Acute) Bilateral carpal tunnel syndrome (Acute) Medical History Cardiac arrhythmia, unspecified (06/20/07) Carpal tunnel syndrome on left Complete tear of right rotator cuff (07/28/16) Contact dermatitis (06/20/07) Depressed bipolar disorder Essential hypertension Knee pain, left Medial epicondylitis, left elbow (05/25/17) Olecranon bursitis, left elbow (05/25/17) Schizophrenia Skin lesion of neck Sleep disturbance, unspecified (06/20/07) Umbilical hernia (05/22/13) Surgical History History of carpal tunnel surgery of left wrist History of colonoscopy (~05/2021) History of local excision of skin lesion left side of neck Jul 2019 Hx of shoulder surgery Incision, Tendon Sheath right rotator cuff repair and biceps tendosis. Removal of foreign body from eye S/P cubital tunnel release left Status post arthroscopy of left knee (08/19/19) Status post medial and lateral partial meniscectomies UPPP (Uvulopalatopharyngoplasty) Family History Mother Alcohol abuse Father Depression Sister No problems noted. Sister Alcohol abuse Maternal Grandfather Alcohol abuse Paternal Grandfather No problems noted. Maternal Grandmother Diabetes Alcohol abuse Paternal Grandmother No problems noted. Social History Smoking/Tobacco Use Status: Current every day Tobacco Type: smokeless tobacco Smokeless tobacco user: chewing tobacco Quit status: has quit before Second Hand Exposure: Yes Smoking risk assessment performed?: Yes Alcohol Intake: current Alcohol Intake frequency: a few times a week Alcohol type: beer Counseling given: Yes Counseling provided: provider counseling and reduce to 2 or less/day Drug use: Never Substance use type: does not use Details: alcohol yesterday Caregiver/Support person: No Household members: spouse and children Housing: house Communication Needs: None Do you need help understanding health information?: Never Pets and animals: Yes Pets and animals: dog(s) Sexually active: Yes Do you think of yourself as: straight/heterosexual Current gender identity: male What is your relationship status?: How often do you talk on the phone with friends or family?: three or more times per week How often do you get together with friends or relatives?: once per week How often do you attend judaism or voodoo services?: 1-3 times per year Do you belong to any clubs or organized social groups?: no Panel score (0-1 are the most socially isolated patients): 2 What type of physical activity do you participate in: walking Duration: > 90 minutes/day Frequency: daily Gypsy/Adventist: Episcopal Special gypsy needs: No Seatbelt use: never Helmet use: No Drive intox or ride w/intox delivery motorcycle driver: No Do you feel safe at home: Yes Do you feel safe in your relationship?: Yes Additional Social history: The patient denies smoking to me, though it is mentioned in his chart as active Meds Allergies and Home Medications Allergies Allergy/AdvReac Type Severity Reaction Status Date / Time mirtazapine AdvReac Severe PROFOUND Verified 08/02/21 05:16 BRADYCARDIA Home Medications Medication Instructions Recorded Confirmed Type diltiazem HCl 240 mg capsule,24 240 mg PO DAILY #90 cap 10/13/20 08/02/21 Rx hr,extended release citalopram 40 mg tablet 40 mg PO DAILY #90 tab 03/11/21 08/02/21 Rx sildenafil (pulm.hypertension) 20 20 - 100 mg PO DAILY PRN #30 tab 03/24/21 08/02/21 Rx mg tablet acetaminophen 500 mg PO Q6H PRN #60 tab 07/20/21 07/30/21 Rx ibuprofen 600 mg PO TID PRN #60 tab 07/20/21 08/02/21 Rx ascorbic acid (vitamin C) [Vitamin 1,000 mg PO BID #0 tab 08/01/21 Rx C] cholecalciferol (vitamin D3) 2,000 units PO DAILY #0 tab 08/01/21 08/02/21 Rx multivitamin [Multiple Vitamins] 1 tab PO QAM #0 tab 08/01/21 08/02/21 Rx prednisone 40 mg PO DAILY #6 tab 08/01/21 08/02/21 Rx Exam Narrative Exam Narrative: Standing in room. Pleasant and conversant. NAD Const General: cooperative and no acute distress Nutritional Appearance: obese Orientation: alert and oriented x3 HENMT Head: normocephalic General nose exam: external nose abnormal (rhinophima ) Eyes General: appearance normal, both eyes and all related structures Sclera: sclerae normal Resp Effort & Inspection: normal respiratory effort Auscultation: clear to auscultation bilaterally and diminished lung sounds Cardio Rate: regular rate Rhythm: regular rhythm Heart Sounds: S1 normal and S2 normal GI Palpation: soft and nontender Neuro General: no focal motor deficits Cranial Nerves: facial strength normal Cognition: normal cognition Speech: speech normal Gait: normal gait Extrem General: no pedal edema and no calf tenderness Psych Appearance: grossly normal Mental Status: mental status grossly normal Affect: normal affect Results Labs Result diagrams: 08/02/21 05:25 08/02/21 05:25 Labs: Laboratory Results - last 24 hr 08/02/21 08/02/21 08/02/21 05:25 05:25 05:25 WBC 8.02 RBC 5.12 Hgb 14.3 Hct 43.5 MCV 85.0 MCH 27.9 MCHC 32.9 RDW 12.6 Plt Count 172 MPV 10.6 Immature Gran % 0.6 Neutrophils % 84.5 Lymphocytes % 6.6 Monocytes % 8.2 Eosinophils % 0.0 Basophils % 0.1 Nucleated RBC % 0 Absolute Neutrophils 6.77 H Absolute Lymphocytes 0.53 L Absolute Monocytes 0.66 Absolute Eosinophils 0.00 Absolute Basophils 0.01 D-Dimer VBG pH 7.43 H VBG pCO2 45 VBG pO2 35 VBG HCO3 30 H VBG Total CO2 27 VBG O2 Saturation 68 VBG Base Excess 6 H Sodium 136 Potassium 4.3 Chloride 101 Carbon Dioxide 28.9 Anion Gap 6.1 BUN 17 D Creatinine 0.8 Estimated GFR/1.73 m2 >= 60.00 Glucose 166 H Calcium 8.2 L Total Bilirubin 0.4 AST 29 ALT 38 Alkaline Phosphatase 67 C-Reactive Protein Total Protein 6.2 L Albumin 2.8 L Procalcitonin Add-On Test Request 08/02/21 08/02/21 08/02/21 05:25 05:25 08:25 WBC RBC Hgb Hct MCV MCH MCHC RDW Plt Count MPV Immature Gran % Neutrophils % Lymphocytes % Monocytes % Eosinophils % Basophils % Nucleated RBC % Absolute Neutrophils Absolute Lymphocytes Absolute Monocytes Absolute Eosinophils Absolute Basophils D-Dimer VBG pH VBG pCO2 VBG pO2 VBG HCO3 VBG Total CO2 VBG O2 Saturation VBG Base Excess Sodium Potassium Chloride Carbon Dioxide Anion Gap BUN Creatinine Estimated GFR/1.73 m2 Glucose Calcium Total Bilirubin AST ALT Alkaline Phosphatase C-Reactive Protein 2.77 H Total Protein Albumin Procalcitonin 0.1 Add-On Test Request DONE 08/02/21 08:25 WBC RBC Hgb Hct MCV MCH MCHC RDW Plt Count MPV Immature Gran % Neutrophils % Lymphocytes % Monocytes % Eosinophils % Basophils % Nucleated RBC % Absolute Neutrophils Absolute Lymphocytes Absolute Monocytes Absolute Eosinophils Absolute Basophils D-Dimer 716 H VBG pH VBG pCO2 VBG pO2 VBG HCO3 VBG Total CO2 VBG O2 Saturation VBG Base Excess Sodium Potassium Chloride Carbon Dioxide Anion Gap BUN Creatinine Estimated GFR/1.73 m2 Glucose Calcium Total Bilirubin AST ALT Alkaline Phosphatase C-Reactive Protein Total Protein Albumin Procalcitonin Add-On Test Request Last Vital Signs Temp 37.7 C H 08/02/21 08:20 Pulse 64 08/02/21 14:14 Resp 24 08/02/21 09:08 BP 135/81 08/02/21 08:20 Pulse Ox 94 08/02/21 14:21 PAWSS Have you Been Recently Intoxicated or Drunk Within the Last 30 days?: No Have you Ever Experienced Previous Episodes of Alcohol Withdrawal?: No Have you ever Experienced Withdrawal Seizures?: No Have you ever Experienced Delirium Tremens(DT)s?: No Have you ever undergone Alcohol Rehabilitation Treatment (i.e, inpt ot outpat ient treatment programs)?: No Have you ever Experienced Blackouts?: No Have you ever Combined Alcohol with other Downers within the last 90 days?: No Have you ever Combined Alcohol with any other Substance of Abuse during the last 90 days?: No Positive Blood Alcohol level on Presentation? [PCS.BAL]: No Evidence of Increased Autonomic Activity (i.e. HR>120, tremor, sweating, jayme tation, nausea)?: No Result: 0
[2021-08-02] MEDS: Insulin Aspart 300 UNITS/3 ML PEN SC (17:22)
[2021-08-02] MEDS: Ascorbic Acid 500 MG TAB 1000 MG PO (21:19)
[2021-08-03] VITALS (8 sets, daily range): BP systolic 115–123; BP diastolic 67–77; PULSE 50–74; RESP 18; TEMP 37.9; O2SAT 91–98
[2021-08-03 07:39] LABS: HGB 14.4 g/dL (13.5-17.5); MCH 27.9 pg (27.0-33.0); MCHC 32.7 % (32.0-36.0); MCV 85.3 fL (80-95); MPV 10.7 fL (8.0-11.0); Platelet Count 201 10^3/uL (130-400); RBC 5.16 10^6/uL (4.36-5.78); RDW-SD 40.5 fL
[2021-08-03 07:55] LABS: ALT 65 U/L (16-63); AST 42 U/L (15-37); Albumin 2.8 g/dL (3.4-5.0); Alkaline Phosphatase 70 U/L (46-116); Anion Gap 2.7 mmol/L (3-11); BUN 18 mg/dL (7-18); Bilirubin, Total 0.6 mg/dL (0.2-1.0); C-Reactive Protein 1.55 mg/dL (0.0-0.3); CO2 33.3 mmol/L (21.0-32.0); CREATININE 0.7 mg/dL (0.70-1.30); Calcium 8.6 mg/dL (8.5-10.1); Chloride 103 mmol/L (98-107); Glucose 127 mg/dL (74-106); Potassium 5.1 mmol/L (3.5-5.1); Sodium 139 mmol/L (136-145); Total Protein 6.4 g/dL (6.4-8.2)
--- NOTE | 2021-08-03 08:31 | PDOC.CMIN ---
- If Service Date Differs Date of service: 08/03/21 Time of Service: 08:31 Care Management Initial Assess REASON FOR HOSPITALIZATION:: Covid, Hypoxia PAST MEDICAL HISTORY/PAST SURGICAL HISTORY:: All Active Problems (Updated 08/02/21 @ 15:11 by Eugene Veliz MD). Acute respiratory failure (Acute). Alcohol abuse (Chronic). Hypoxia (Acute). COVID-19 (Acute ~07/2021). Left carpal tunnel syndrome (Acute). Normal colonoscopy (Acute ~05/2021). Cubital tunnel syndrome on left (Acute). Schizophrenia (Chronic 09/11/07). Depressive disorder (Chronic 06/20/07). Depressed bipolar I disorder (Chronic 09/11/07). Essential hypertension with goal blood pressure less than 130/80 (Acute). stop lisinopril. start diltiazem. Erectile 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 (Acute). prn sildenafil--discussed ADRs including persistent erection. Neck pain on right side (Acute). Hip pain, right (Acute). Screening for colon cancer (Acute). Bilateral carpal tunnel syndrome (Acute). Medical History . Cardiac arrhythmia, unspecified (06/20/07). Carpal tunnel syndrome on left. Complete tear of right rotator cuff (07/28/16). Contact dermatitis (06/20/07). Depressed bipolar disorder. Essential hypertension. Knee pain, left. Medial epicondylitis, left elbow (05/25/17). Olecranon bursitis, left elbow (05/25/17). Schizophrenia. Skin lesion of neck. Sleep disturbance, unspecified (06/20/07). Umbilical hernia (05/22/13). Surgical History . History of carpal tunnel surgery of left wrist. History of colonoscopy (~05/2021). History of local excision of skin lesion. left side of neck Jul 2019. Hx of shoulder surgery. Incision, Tendon Sheath. right rotator cuff repair and biceps tendosis. Removal of foreign body. from eye. S/P cubital tunnel release. left. Status post arthroscopy of left knee (08/19/19). Status post medial and lateral partial meniscectomies. UPPP (Uvulopalatopharyngoplasty) PREVIOUS FUNCTIONAL STATUS/SOCIAL/FAMILY SUPPORTS:: Tyler resides in [place] with his Morris on their family farm. The couple have a few sons. Clyde's younger brother is currently helping to manage the farm while Clyde is at [facility]. CURRENT FUNCTIONAL STATUS:: Tyler requires close monitoring and treatment for Covid-19. CM spoke with pt over the phone due to covid precautions. Tyler has no new concerns, he's tolerating a regular diet and up independently in his room. He continues to have SOB and a non productive cough. Tyler asked about the status of his home O2 through [facility]. CM contacted RT and Aviva will discuss with pt. ADVANCE DIRECTIVES:: None on file, CM to offer Has patient been provided with info about the portal/API?: Yes Did the patient sign up for the portal?: No CODE STATUS:: Full Code INSURANCE COVERAGE / FINANCIAL ISSUES:: Medicaid CURRENT HOME/COMMUNITY SERVICES/EQUIPMENT:: None currently, in the process of getting home O2 through [facility] PRIMARY CARE PHYSICIAN:: [facility] POTENTIAL DISCHARGE NEEDS:: New home O2 through [facility]. PATIENT/FAMILY EDUCATION NEEDS:: Review of discharge instructions, limitations, medications and plan to follow up with community providers. Ask Me Three. ANTICIPATED BARRIERS TO DISCHARGE:: Oxygen Requirements, Respiratory Status TRANSPORTATION:: Via private vehicle with Morris PLAN:: Clyde requires close monitoring and treatment for Covid-19. He is currently 94% on 3L NC. Clyde will return home when ready per MD. He will likely require new home O2. CM will continue to support discharge planning needs. Clyde will transport via private vehicle with Morris, follow up with his PCP and plan of care as prescribed. Readmission - Within the Past 30 Days Yes or No: N - Date of First Admission Date of 1st Admission: 07/30/21 - Date of this Admission Date of Admission: 08/02/21 This admission was: Through ED - Office Visit Since 1st Admission Have you seen your PCP in the office since discharge?: No Had an appointment Been Scheduled?: Yes Date of Scheduled Appointment: 08/16/2021 - Speicalist Appointments Have you seen any other specialist since your 1st Admission?: No - I. Interview patient and/or Family Difficulty reaching your doctor or getting an office appt?: No Have you had trouble purchasing/ or taking medication?: No How do you take your medications and set up your pills?: Self manage Have you had trouble with getting meals at home?: No Describe your typical meals since you have been home: Regular Diet Did you feel ready for discharge when you left the last time: Yes Were services received that you thought were set up on disch: Yes If patient did not receive services, were there orders at: Yes Did you call your physician beore you came to the ED?: No Did your physician tell you to come in?: No How do you think you became sick enough to come back?: Home O2 delivery was delayed. - If the patient had a VNA ordered Did the patient have a VNA order?: No Did you call the VNA before you came?: No Did the VNA tell you to come to the hospital?: No Do you know if the VNA called your physician?: No - Ask the Care Team Members: What do you think caused the patient to be readmitted: Patient was eager to discharge home and [facility] was able to set up home O2 the day after discharge. Provider felt this was sufficient as patient stressed that he be sedentary until O2 was delivered. After discharge supplemental O2 requirements increased and home O2 delivery was delayed. Patient became hypoxic and returned to the ED. - ED visits How many ED visits in the past 12 months: 2 - Assessment for Readmission Summary of readmission circumstances, based upon interviews: Patient was eager to discharge home and [facility] was able to set up home O2 the day after discharge. Provider felt this was sufficient as patient stressed that he be sedentary until O2 was delivered. After discharge supplemental O2 requirements increased and home O2 delivery was delayed. Patient became hypoxic and returned to the ED.
[2021-08-03 08:45] LABS: D-Dimer 1447 ng/mlFEU (<500)
[2021-08-03] MEDS: Enoxaparin 120 MG/0.8 ML SYR SC ×2 (08:59→20:32)
[2021-08-03] MEDS: Cholecalciferol (Vitamin D3) 1,000 UNIT TAB 2000 UNITS PO (09:00)
[2021-08-03] MEDS: dilTIAZem CD 120 MG CAPCR 240 MG PO (09:00)
[2021-08-03] MEDS: Multivitamin TAB 1 TAB PO (09:01)
[2021-08-03] MEDS: Ascorbic Acid 500 MG TAB 1000 MG PO ×2 (09:01→20:32)
[2021-08-03] MEDS: Citalopram 20 MG TAB 40 MG PO (09:01)
[2021-08-03] MEDS: Dexamethasone 4 MG/ML VIAL 6 MG IVP (09:01)
[2021-08-03] MEDS: Normal Saline Flush 10 ML SYR IVP (12:47)
[2021-08-03] MEDS: REMDESIVIR 100 MG in Normal Saline 250 ML 250 MG IVPB (12:49)
[2021-08-03] MEDS: Insulin Aspart 300 UNITS/3 ML PEN SC ×2 (12:51→17:13)
--- NOTE | 2021-08-03 16:36 | W.PM.PROGNOT ---
Date of Service Date of service: 08/03/21 Time of Service: 16:36 Assessment and Plan Assessment and plan (1) Alcohol abuse: Status: Chronic Assessment and plan: No history of alcohol withdrawal. Watch for signs/sxs of withdrawal and if develop, initiate CIWA protocol then. (2) COVID-19: Status: Acute Assessment and plan: Increased ground-glass opacities on CTA chest. No pulmonary emboli noted. Procalcitonin normal so doubt a superimposed bacterial infection. Increased hypoxia. Dexamethasone and remdesivir. Sotrovimab 500mg IV x 1. CPAP at night (uses at home). Now on 3L NC. (3) Acute respiratory failure: Status: Acute Assessment and plan: Admitted on 07/30/21, discharged on 08/01/21 for COVID 19 PNA His exercise oximetry on day of d/c showed no requirements at rest and 3L with activity. The oxygen supply could not be delivered on the day of d/c but it was thought he would do OK if he remained very sedentary. Unfortunately, his resting O2 saturations began to decline into the 70's and he developed shortness of air. Now on 3L NC and stable. (4) Depressed bipolar I disorder: Status: Chronic Assessment and plan: Affect is appropriate. Cont citalopram. Subjective Subjective Patient reports: no new complaints, tolerating a regular diet, shortness of breath (On supplemental O2 per NC) and afebrile; denies nausea and vomiting Exam Narrative Exam Narrative: On 3L NC with O2 saturations in the low 90's. D - dimer has increased. CRP improved. Monitor. VSS Objective Last Vital Signs Temp 37.9 C H 08/03/21 09:19 Pulse 60 08/03/21 15:00 Resp 18 08/03/21 09:19 BP 115/67 08/03/21 09:19 Pulse Ox 94 08/03/21 16:14 Laboratory Results - last 24 hr 08/03/21 08/03/21 08/03/21 06:50 06:50 06:50 WBC RBC Hgb Hct MCV MCH MCHC RDW Plt Count MPV D-Dimer 1447 H Sodium 139 Potassium 5.1 Chloride 103 Carbon Dioxide 33.3 H Anion Gap 2.7 L BUN 18 Creatinine 0.7 Estimated GFR/1.73 m2 >= 60.00 Glucose 127 H Calcium 8.6 Total Bilirubin 0.6 AST 42 H ALT 65 H Alkaline Phosphatase 70 C-Reactive Protein Cancelled 1.55 H Total Protein 6.4 Albumin 2.8 L 08/03/21 06:50 WBC 8.10 RBC 5.16 Hgb 14.4 Hct 44.0 MCV 85.3 MCH 27.9 MCHC 32.7 RDW 13.0 Plt Count 201 MPV 10.7 D-Dimer Sodium Potassium Chloride Carbon Dioxide Anion Gap BUN Creatinine Estimated GFR/1.73 m2 Glucose Calcium Total Bilirubin AST ALT Alkaline Phosphatase C-Reactive Protein Total Protein Albumin PAWSS Have you Been Recently Intoxicated or Drunk Within the Last 30 days?: No Have you Ever Experienced Previous Episodes of Alcohol Withdrawal?: No Have you ever Experienced Withdrawal Seizures?: No Have you ever Experienced Delirium Tremens(DT)s?: No Have you ever undergone Alcohol Rehabilitation Treatment (i.e, inpt ot outpatient treatment programs)?: No Have you ever Experienced Blackouts?: No Have you ever Combined Alcohol with other Downers within the last 90 days?: No Have you ever Combined Alcohol with any other Substance of Abuse during the last 90 days?: No Positive Blood Alcohol level on Presentation? [PCS.BAL]: No Evidence of Increased Autonomic Activity (i.e. HR>120, tremor, sweating, agitation, nausea)?: No Result: 0
[2021-08-04 07:09] LABS: C-Reactive Protein 0.82 mg/dL (0.0-0.3)
[2021-08-04 07:26] LABS: D-Dimer 1250 ng/mlFEU (<500)
[2021-08-04] MEDS: Enoxaparin 120 MG/0.8 ML SYR SC ×2 (08:08→19:47)
[2021-08-04] MEDS: Cholecalciferol (Vitamin D3) 1,000 UNIT TAB 2000 UNITS PO (08:09)
[2021-08-04] MEDS: Multivitamin TAB 1 TAB PO (08:09)
[2021-08-04] MEDS: dilTIAZem CD 120 MG CAPCR 240 MG PO (08:10)
[2021-08-04] MEDS: Citalopram 20 MG TAB 40 MG PO (08:10)
[2021-08-04] MEDS: Dexamethasone 4 MG/ML VIAL 6 MG IVP (08:10)
[2021-08-04] MEDS: Ascorbic Acid 500 MG TAB 1000 MG PO ×2 (08:10→19:47)
[2021-08-04 08:21] VITALS: BP 112/72; PULSE 52; RESP 18; TEMP 37.4; O2SAT 94
[2021-08-04 08:25] VITALS: O2SAT 94
[2021-08-04] MEDS: REMDESIVIR 100 MG in Normal Saline 250 ML 250 MG IVPB (12:08)
[2021-08-04] MEDS: Insulin Aspart 300 UNITS/3 ML PEN SC ×2 (12:08→17:07)
[2021-08-04 14:05] VITALS: O2SAT 95
[2021-08-04 14:59] VITALS: PULSE 43
--- NOTE | 2021-08-04 16:16 | W.PM.PROGNOT ---
Date of Service Date of service: 08/04/21 Time of Service: 16:16 Assessment and Plan Assessment and plan (1) Alcohol abuse: Status: Chronic Assessment and plan: No history of alcohol withdrawal. Watch for signs/sxs of withdrawal and if develop, initiate CIWA protocol then. (2) COVID-19: Status: Acute Assessment and plan: Increased ground-glass opacities on CTA chest. No pulmonary emboli noted. Procalcitonin normal so doubt a superimposed bacterial infection. Increased hypoxia. Dexamethasone and remdesivir. Sotrovimab 500mg IV x 1. Now on 3L NC; O2 saturations of 94-95%. (3) Acute respiratory failure: Status: Acute Assessment and plan: Admitted on 07/30/21, discharged on 08/01/21 for COVID 19 PNA His exercise oximetry on day of d/c showed no requirements at rest and 3L with activity. The oxygen supply could not be delivered on the day of d/c but it was thought he would do OK if he remained very sedentary. Unfortunately, his resting O2 saturations began to decline into the 70's and he developed shortness of air. Now on 3L NC and stable. (4) Depressed bipolar I disorder: Status: Chronic Assessment and plan: Affect is appropriate. Cont citalopram. (5) Discharge planning issues: Status: Acute Assessment and plan: Likely d/c in the next 1-2 days. May require supplemental O2. Subjective Subjective Patient reports: no new complaints, feels better and afebrile; denies nausea, vomiting and shortness of breath (On 3L O2 per NC) Exam Narrative Exam Narrative: Sitting up. Pleasant. NAD Const General: cooperative Orientation: alert and oriented x3 Eyes General: appearance normal, both eyes and all related structures Sclera: sclerae normal Resp Effort & Inspection: normal respiratory effort Auscultation: clear to auscultation bilaterally and diminished lung sounds Cardio Rate: regular rate Rhythm: regular rhythm Heart Sounds: S1 normal and S2 normal Extrem General: no pedal edema and no calf tenderness Psych Appearance: grossly normal Mental Status: mental status grossly normal Speech and Movement: speech and movement normal Affect: normal affect Objective Last Vital Signs Temp 37.4 C 08/04/21 08:21 Pulse 52 L 08/04/21 08:21 Resp 18 08/04/21 08:21 BP 112/72 08/04/21 08:21 Pulse Ox 95 08/04/21 14:05 Laboratory Results - last 24 hr 08/04/21 08/04/21 06:40 06:40 D-Dimer 1250 H C-Reactive Protein 0.82 H PAWSS Have you Been Recently Intoxicated or Drunk Within the Last 30 days?: No Have you Ever Experienced Previous Episodes of Alcohol Withdrawal?: No Have you ever Experienced Withdrawal Seizures?: No Have you ever Experienced Delirium Tremens(DT)s?: No Have you ever undergone Alcohol Rehabilitation Treatment (i.e, inpt ot outpatient treatment programs)?: No Have you ever Experienced Blackouts?: No Have you ever Combined Alcohol with other Downers within the last 90 days?: No Have you ever Combined Alcohol with any other Substance of Abuse during the last 90 days?: No Positive Blood Alcohol level on Presentation? [PCS.BAL]: No Evidence of Increased Autonomic Activity (i.e. HR>120, tremor, sweating, agitation, nausea)?: No Result: 0
[2021-08-04 19:47] VITALS: BP 126/79; PULSE 56; RESP 19; TEMP 37.1; O2SAT 98
[2021-08-04 23:19] VITALS: PULSE 43
[2021-08-05] VITALS (7 sets, daily range): BP systolic 123; BP diastolic 79; PULSE 50–80; RESP 16–20; TEMP 37.2; O2SAT 90–97
[2021-08-05 06:36] LABS: HCT 45.3 % (40.0-50.0); HGB 14.5 g/dL (13.5-17.5); MCH 28.1 pg (27.0-33.0); MCV 87.8 fL (80-95); MPV 10.2 fL (8.0-11.0); Platelet Count 256 10^3/uL (130-400); RBC 5.16 10^6/uL (4.36-5.78); RDW 13.1 % (11.8-14.1); RDW-SD 41.8 fL; WBC 10.32 10^3/uL (4.4-10.8)
[2021-08-05 06:49] LABS: C-Reactive Protein 0.46 mg/dL (0.0-0.3)
[2021-08-05 07:13] LABS: D-Dimer 698 ng/mlFEU (<500)
[2021-08-05] MEDS: Enoxaparin 120 MG/0.8 ML SYR SC (08:12)
[2021-08-05] MEDS: Dexamethasone 4 MG/ML VIAL 6 MG IVP (08:13)
[2021-08-05] MEDS: dilTIAZem CD 120 MG CAPCR 240 MG PO (08:16)
[2021-08-05] MEDS: Cholecalciferol (Vitamin D3) 1,000 UNIT TAB 2000 UNITS PO (08:16)
[2021-08-05] MEDS: Multivitamin TAB 1 TAB PO (08:16)
[2021-08-05] MEDS: Citalopram 20 MG TAB 40 MG PO (08:16)
[2021-08-05] MEDS: Ascorbic Acid 500 MG TAB 1000 MG PO (08:16)
[2021-08-05] MEDS: Normal Saline Flush 10 ML SYR IVP (08:17)
--- NOTE | 2021-08-05 10:43 | PDOC.CMPRO ---
- If Service Date Differs Date of service: 08/05/21 Time of Service: 10:43 Care Management Progress Note S/O: Tyler requires close monitoring and treatment for Covid-19. CM spoke with pt over the phone due to covid precautions. Tyler has no new concerns, he's tolerating a regular diet and up independently in his room. Pt reports that he is feeling well today. His supplemental O2 was decreased to 2L today. RT will assess his need for home O2. A: 51 year old male admitted to [facility] on 08/02/2021 for Covid, Hypoxia. P: Clyde requires close monitoring and treatment for Covid-19. Clyde will return home when ready per MD. He will likely require new home O2, RT is following. CM will continue to support discharge planning needs. Clyde will transport via private vehicle with [facility], follow up with his PCP and plan of care as prescribed.
--- NOTE | 2021-08-05 11:55 | DSE_ITS ---
Date of service: 08/05/21 Time of Service: 11:55 DS: Diagnosis Discharge Diagnosis (1) Alcohol abuse: Status: Chronic (2) COVID-19: Status: Acute (3) Acute respiratory failure: Status: Acute (4) Depressed bipolar I disorder: Status: Chronic (5) Discharge planning issues: Status: Acute Discharge Plan Disposition Patient Disposition: HOME Condition: Improving Discharge Details Reason For Visit: Covid, Hypoxia Admit Date/Time: 08/02/21 07:12 Admit Provider: Eugene Veliz Attending Provider: Eugene Veliz Primary Care Provider: Hipolito Vela Hospital Course Hospital Course: This is a 50 yo male that was discharged from [facility] the day prior to this admission; hospitalized then for COVID-19 pneumonia. He initially required 2L supplemental O2 per NC. He was treated with Remdesivir, dexamethasone, CPAP at night per his norm. His procalcitonin was normal. He improved and on day of discharge his resting RA O2 saturations were normal. He did qualify for 3L supplemental O2 with ambulation. The oxygen provider could not deliver the home O2 on the day he was discharged, but he wanted to go home with the caveat that he only ambulate to and from the bathroom until his oxygen was delivered. He was discharged on a burst of prednisone. He presented back to the ED with worsening SOA. He denied CP/pressure, F/C, N/V. In the ED he had bibasilar wheezes. His RA O2 saturation was 76%. He improved with 10L O2 per NC, then changed to high-flow NC system. Procalcitonin negative so doubt superimposed bacterial pneumonia. Dexamethason and remdesivir initiated. He improved quickly to requiring 4L per NC and then on day of d/c required no supplemental O2. He will d/c on a prednisone taper and his usual home meds. He needs to adhere to a low carbohydrate diet, particularly while on prednisone. Covid-19 vaccination recommended in 1 month. Continue nightly use of his home CPAP. Use CPAP during the day while napping. Follow up with PCP next week. Home Meds and New Rx's Prescriptions: New prednisone 10 mg tablet See Rx Instructions .ROUTE .COMPLEX Qty: 13 RF: 0 Continued diltiazem HCl 240 mg capsule,extended release 24 hr 240 mg PO DAILY Qty: 90 RF: 3 citalopram 40 mg tablet 40 mg PO DAILY Qty: 90 RF: 3 sildenafil (pulm.hypertension) 20 mg tablet 20 - 100 mg PO DAILY PRN (Reason: sexual activity) Qty: 30 RF: 5 multivitamin [Multiple Vitamins] Tablet 1 tab PO QAM Qty: 0 RF: 0 ascorbic acid (vitamin C) [Vitamin C] 500 mg Tablet 1,000 mg PO BID Qty: 0 RF: 0 cholecalciferol (vitamin D3) 25 mcg (1,000 unit) Tablet 2,000 units PO DAILY Qty: 0 RF: 0 acetaminophen 500 mg tablet 500 mg PO Q6H PRN (Reason: pain) Qty: 60 RF: 2 ibuprofen 600 mg tablet 600 mg PO TID PRN (Reason: pain) Qty: 60 RF: 0 Discontinued prednisone 20 mg tablet 40 mg PO DAILY Qty: 6 RF: 0 Discharge Instructions Instructions: COVID-19 (Coronavirus Disease 2019) (DC), COVID-19 and Chronic Health Conditions (DC) Stand Alone Forms: Nursing Discharge Form Referrals: Hipolito Vela MD [Primary Care Provider] - 08/16/21 10:20 am Activity:: Activity as Tolerated Equipment/Supplies:: No Equipment Needed Diet:: low carbohydrate diet Discharge Orders Discharge Orders: Discharge Order (Routine); Ordered 08/05/21 Ordered By: Eugene Veliz DS: Summary Time Spent with Patient providing and/or coordinating discharge services: Greater than 30 minutes Status at Discharge Functional status at discharge: independent ambulation Overall status at discharge: patient is progressing back to baseline Mental Status: mental status grossly normal Speech and Movement: speech and movement normal Mood: congruent mood Affect: normal affect Exam Narrative Exam Narrative: Sitting up. Pleasant. NAD Const General: cooperative and no acute distress Nutritional Appearance: obese Orientation: alert and oriented x3 HENMT Head: normocephalic General nose exam: external nose abnormal (rhinophima ) Eyes General: appearance normal, both eyes and all related structures Sclera: sclerae normal Resp Effort & Inspection: normal respiratory effort Auscultation: clear to auscultation bilaterally and diminished lung sounds Cardio Rate: regular rate Rhythm: regular rhythm Heart Sounds: S1 normal and S2 normal GI Palpation: soft and nontender Neuro General: no focal motor deficits Cranial Nerves: facial strength normal Cognition: normal cognition Speech: speech normal Gait: normal gait Extrem General: no pedal edema and no calf tenderness Psych Appearance: grossly normal Mental Status: mental status grossly normal Speech and Movement: speech and movement normal Mood: congruent mood Affect: normal affect DS: Data Vitals/I&O Vitals and I&O: Vital Signs Temperature 37.2 C 08/05/21 08:30 Temperature Source Tympanic 08/05/21 08:30 Pulse 54 L 08/05/21 08:30 Pulse Rhythm Regular 08/05/21 10:26 Pulse 63 08/02/21 08:00 Respiratory Rate 19 08/05/21 08:30 Respiratory Effort 08/05/21 10:26 Respiratory Depth Normal 08/05/21 10:26 Respiratory Pattern Normal 08/05/21 10:26 Blood Pressure 123/79 08/05/21 08:30 Blood Pressure Mean 104 08/02/21 07:00 Pulse Oximetry 95 08/05/21 08:56 Oxygen Delivery Method Nasal Cannula 08/05/21 08:56 Oxygen Flow Rate 2 08/05/21 08:56 Fraction of Inspired Oxygen (FIO2) 40 08/05/21 08:56 Pain Level 0 08/05/21 08:30 Comment 08/02/21 08:20 Intake & Output 08/04/21 08/04/21 08/05/21 11:59 23:59 11:59 Intake Total 360 / 840 480 / 840 480 / 480 Output Total 800 / 1400 600 / 1400 Balance -440 / -560 -120 / -560 480 / 480 Intake: Oral 360 / 840 480 / 840 480 / 480 Output: Urine 800 / 1400 600 / 1400 Other: Urine Color Yellow Yellow Yellow Urine Appearance Clear Clear Clear Urine Odor None Comment Pt reports voiding w/o difficulty, up IND to BR. voiding w/o difficulty. Voiding Methods Toilet Toilet Data Completed and Pending Labs on day of discharge: Labs from last 24 hours 08/05/21 08/05/21 08/05/21 06:00 06:00 06:00 WBC 10.32 RBC 5.16 Hgb 14.5 Hct 45.3 MCV 87.8 MCH 28.1 MCHC 32.0 RDW 13.1 Plt Count 256 MPV 10.2 D-Dimer 698 H C-Reactive Protein 0.46 H PFSH All Active Problems Discharge planning issues (Acute) Acute respiratory failure (Acute) Alcohol abuse (Chronic) Hypoxia (Acute) COVID-19 (Acute ~07/2021) Left carpal tunnel syndrome (Acute) Normal colonoscopy (Acute ~05/2021) Cubital tunnel syndrome on left (Acute) Schizophrenia (Chronic 09/11/07) Depressive disorder (Chronic 06/20/07) Depressed bipolar I disorder (Chronic 09/11/07) Essential hypertension with goal blood pressure less than 130/80 (Acute) stop lisinopril start diltiazem Erectile 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 (Acute) prn sildenafil--discussed ADRs including persistent erection Neck pain on right side (Acute) Hip pain, right (Acute) Screening for colon cancer (Acute) Bilateral carpal tunnel syndrome (Acute) Medical History Cardiac arrhythmia, unspecified (06/20/07) Carpal tunnel syndrome on left Complete tear of right rotator cuff (07/28/16) Contact dermatitis (06/20/07) Depressed bipolar disorder Essential hypertension Knee pain, left Medial epicondylitis, left elbow (05/25/17) Olecranon bursitis, left elbow (05/25/17) Schizophrenia Skin lesion of neck Sleep disturbance, unspecified (06/20/07) Umbilical hernia (05/22/13) Surgical History History of carpal tunnel surgery of left wrist History of colonoscopy (~05/2021) History of local excision of skin lesion left side of neck Jul 2019 Hx of shoulder surgery Incision, Tendon Sheath right rotator cuff repair and biceps tendosis. Removal of foreign body from eye S/P cubital tunnel release left Status post arthroscopy of left knee (08/19/19) Status post medial and lateral partial meniscectomies UPPP (Uvulopalatopharyngoplasty) Family History Mother Alcohol abuse Father Depression Sister No problems noted. Sister Alcohol abuse Maternal Grandfather Alcohol abuse Paternal Grandfather No problems noted. Maternal Grandmother Diabetes Alcohol abuse Paternal Grandmother No problems noted. Social History Smoking/Tobacco Use Status: Current every day Tobacco Type: smokeless tobacco Smokeless tobacco user: chewing tobacco Quit status: has quit before Second Hand Exposure: Yes Smoking risk assessment performed?: Yes Alcohol Intake: current Alcohol Intake frequency: a few times a week Alcohol type: beer Counseling given: Yes Counseling provided: provider counseling and reduce to 2 or less/day Drug use: Never Substance use type: does not use Details: alcohol yesterday Caregiver/Support person: No Household members: spouse and children Housing: house Communication Needs: None Do you need help understanding health information?: Never Pets and animals: Yes Pets and animals: dog(s) Sexually active: Yes Do you think of yourself as: straight/heterosexual Current gender identity: male What is your relationship status?: How often do you talk on the phone with friends or family?: three or more times per week How often do you get together with friends or relatives?: once per week How often do you attend jewish or hoahaoism services?: 1-3 times per year Do you belong to any clubs or organized social groups?: no Panel score (0-1 are the most socially isolated patients): 2 What type of physical activity do you participate in: walking Duration: > 90 minutes/day Frequency: daily Gypsy/Druze: Rastafari Special gypsy needs: No Seatbelt use: never Helmet use: No Drive intox or ride w/intox class a regional truck driver: No Do you feel safe at home: Yes Do you feel safe in your relationship?: Yes Additional Social history: The patient denies smoking to me, though it is mentioned in his chart as active
--- NOTE | 2021-08-05 14:03 | PDOC.CMDIS ---
- If Service Date Differs Date of service: 08/05/21 Time of Service: 14:03 LACE Index Scoring Tool - Questions: Length of Stay (in days): 3 Acuity (Admit via E.D.?): Yes E.D. Visits: 2 - Answers: Total Score: 8 Risk of Readmission: Low Risk Care Management Discharge Reason for Hospitalization: Covid, Hypoxia Discharge Plan: Discharge home via private vehicle with family with no new services. No home O2 is needed at the time of discharge. Follow up with PCP and discharge plan of care. Patient/Family Education Needs: Review discharge instructions, limitations, medications and plan to follow up with community providers. ask me three.
== END 2021-08-05 13:25 | disposition home or self-care (01) | DRG 177 ==
LOC: ER 07:25 → MS 08:24
PROVIDERS: Admitting Provider Family Medicine; Emergency Provider Emergency Medicine; PCP Family Medicine; Visit Provider Family Medicine
DX: U07.1 COVID-19 (principal); J96.01 Acute respiratory failure with hypoxia; F31.9 Bipolar disorder, unspecified; F10.10 Alcohol abuse, uncomplicated; I10 Essential (primary) hypertension; F20.9 Schizophrenia, unspecified; F17.220 Nicotine dependence, chewing tobacco, uncomplicated
CPT/HCPCS: 36415; 71275; 80053; 82805; 84145; 85027; 93005; 94618; 94640; 96365; 96375; 99285; 71045; 85025; 85379; 86140; 93010; 94660; 94667; 99223; 99232; 99239; J0248; J1100; J1650; J3490; J7620

== ENCOUNTER 2022-10-18 08:48 | Outpatient (CLI) | payer MEDICAID, SELFPAY ==
[2022-10-18 12:32] LABS: Hemoglobin A1C 5.4 % (<5.7)
[2022-10-18 12:33] LABS: Calculated LDL 81 mg/dL (<100); Cholesterol 144 mg/dL (<200); HDL Cholesterol 56 mg/dL (40-60); Triglyceride 39 mg/dL (<150)
== END 2022-10-18 08:49 | disposition home or self-care (01) ==
LOC: LOS 08:48
PROVIDERS: PCP Family Medicine; Referring Provider Family Medicine; Visit Provider Family Medicine
DX: Z12.5 Encounter for screening for malignant neoplasm of prostate (principal); R73.9 Hyperglycemia, unspecified; E78.5 Hyperlipidemia, unspecified
CPT/HCPCS: 36415; 80061; 84153; 83036

== ENCOUNTER 2023-07-20 10:17 | Day surgery (SDC) | payer MEDICAID, SELFPAY ==
--- NOTE | 2023-07-19 15:51 | W.PM.DSUDISC ---
Date of service: 07/20/23 Time of Service: 14:23 Discharge Plan Disposition Patient Disposition: Home Condition: Good Discharge Details Reason For Visit: Umbilical hernia repair Attending Provider: Philip Lundberg Primary Care Provider: Hipolito Vela Home Meds and New Rx's Prescriptions: New tramadol 50 mg tablet 50 mg PO Q8H PRNQty: 12 0RF Rx Instructions: Take 1 tablet by mouth up to every 8 hours if needed for severe pain. Do not drive while using this medication. Continued diltiazem HCl 240 mg capsule,extended release 24 hr 240 mg PO DAILY Qty: 90 3RF sildenafil (pulm.hypertension) 20 mg tablet 20 - 100 mg PO DAILY PRN (Reason: sexual activity) Qty: 90 3RF citalopram 40 mg tablet 40 mg PO DAILY Qty: 90 3RF ibuprofen 600 mg tablet 600 mg PO TID PRN (Reason: pain) Qty: 60 0RF Discharge Instructions Instructions: Umbilical Hernia Repair (DC) Additional Instructions: Tyler, we were able to repair your bellybutton hernia without much difficulty today. I did implant a permanent mesh like we talked about beforehand. Everything went very smoothly. The skin overlying the hernia is a little bit thin, so I did leave the special dressing in place. I would like you to leave it there for a full 48 hours before you remove it. When you take the Band-Aid off, you will see a slimy yellow gauze packed into your bellybutton. Take this off, then wash the incision with warm soapy water. At that point, I do not believe that you will need a Band-Aid anymore. If you notice that the skin around your bellybutton looks a little irritated, then you should coated with a thin dose of Neosporin, and a cottonball with a Band-Aid on top. Repeat this daily until the skin looks a little healthier. If you need anything at all, please let me know, otherwise I will see you in the office in follow-up. 1. Resume all of your medications. 2. Heating pads and ice packs as needed to help with pain 3. Okay to use tylenol and ibuprofen over the counter as needed. Use [] as needed for more severe pain. 4. Leave bandage in place for 24 hours, then remove. 5. Shower with warm soapy water. Pat dry. Use a bandaid if needed to protect your clothing. 6. No soaking or tub baths until I see you in the office. 7. No heavy lifting until I see you in the office. 8. Call the office (or go directly to the emergency room after hours) if you notice any of the following: Develop chills (warm to touch), or if you have a thermometer and your temperature is above 101 Difficulty breathing or difficultly swallowing Persistent vomiting Any bleeding ? exceeding one tablespoon 9. Call your physician if the site where your intravenous was started becomes red, swollen, painful, and warm to touch. Activity:: No heavy lifting Remove Dressings/Wound Care:: 48 hours Shower/Bathe:: 48 hours Diet:: As Tolerated Discharge Orders Discharge Orders: Discharge Order (Routine); Ordered 07/19/23 Ordered By: Philip Lundberg DS: Diagnosis Discharge Diagnosis (1) Umbilical hernia: Asessment and Plan: Routine postoperative follow-up
--- NOTE | 2023-07-19 15:53 | W.PM.OP ---
Date of service: 07/20/23 Time of Service: 14:28 Operative Note Operative Note DATE OF PROCEDURE: 07/20/23 PRE-OP DIAGNOSIS: Umbilical hernia POST-OP DIAGNOSIS: same PROCEDURE: Umbilical hernia repair with mesh SURGEON: Philip Lundberg [employer] DELTA SYSTEM: [employer] ANESTHESIA TYPE: Local By Surgeon and General LMA/ETT Refer to Anesthesia Record ESTIMATED BLOOD LOSS: 20 PATHOLOGY: none sent COMPLICATIONS: None Patient was transported to: PACU Patient's condition: stable Implants: 6.[address] hernia patch Indications: Tyler is a 52-year-old male with a painful umbilical hernia Findings: Reducible umbilical hernia Procedure Description: After the initiation of anesthesia, I prepped and draped the anterior abdominal wall in the usual fashion. Next, I established a generous field block using Exparel. I then made a semielliptical incision along the superior aspect of the umbilical fold. I dissected down through the skin using combination of sharp dissection as well as Bovie electrocautery. I dissected down to the fascia on the cephalad portion of the incision, and then around the umbilical stalk on the left and right sides. Once the stalk was isolated, I carefully dissected it off the underside of the umbilical skin. Great care was taken to ensure full-thickness portion of skin was preserved to optimize chances of appropriate healing. In order to do this, I did have to open the hernia sac. It contained some omentum and was easily reduced. Next, I carefully dissected down to the fascia and cleared and appropriate underside of the fascia to seat the mesh. The defect itself was about 3-1/2 cm in its greatest dimensions. Next, I delivered a 6.[address] hernia patch under the umbilical defect. Great care was taken to ensure that it laid flat on the underside of the fascia defect. The tails were split, and pexied down onto the superficial portion of the anterior abdominal wall fascia. Next, the fascia was closed in a horizontal fashion with interrupted Prolene sutures. The surgical site was irrigated. It was hemostatic. The underside of the umbilical skin was then pexied down onto the soft tissues to recreate a normal umbilicus. Skin was then closed with running subcuticular stitches, bandages were applied. Patient was then awoken from anesthesia and transferred to the recovery unit.
[2023-07-20] VITALS (10 sets, daily range): BP systolic 86–156; BP diastolic 47–101; PULSE 59–81; RESP 16–21; TEMP 36.1–36.8; O2SAT 93–97; BMI 37.3
[2023-07-20] MEDS: Acetaminophen 500 MG TAB 1000 MG PO (10:53)
[2023-07-20] MEDS: Gabapentin 300 MG CAP 600 MG PO (10:53)
[2023-07-20] MEDS: Celecoxib 200 MG CAP PO (10:54)
[2023-07-20] MEDS: Lactated Ringers 1,000 ML 80 ML IV (10:54)
--- NOTE | 2023-07-20 11:31 | ANES.PREOP_ITS ---
General Info Date of Service Date Performed: 07/20/23 Height: 6 ft Weight: 124.738 kg Body Mass Index (BMI): 37.3 Surgical Procedure: Operation Date: 07/20/23 12:10 Proposed Procedure Side Surgeon p Herniorrhaphy Umbilical w/Mesh Philip Lundberg MD Meds Allergies and Home Medications Allergies Allergy/AdvReac Type Severity Reaction Status Date / Time mirtazapine AdvReac Severe PROFOUND Verified 07/20/23 10:33 BRADYCARDIA Home Medication Medication Instructions Recorded ibuprofen 600 mg tablet 600 mg PO TID PRN pain #60 tabs 07/20/21 diltiazem HCl 240 mg capsule,24 240 mg PO DAILY #90 caps 10/18/22 hr,extended release sildenafil (pulm.hypertension) 20 20 - 100 mg (1 - 5 x 20 mg) PO 10/18/22 mg tablet DAILY PRN sexual activity #90 tabs citalopram 40 mg tablet 40 mg PO DAILY #90 tabs 04/27/23 Current Visit Medications: Current Medications Generic Name Dose Route Start Last Admin Trade Name Eladioq PRN Reason Stop Dose Admin Acetaminophen 1,000 mg 07/20/23 06:00 07/20/23 10:53 Acetaminophen 500 Mg Tab PO 07/20/23 23:59 1,000 mg PREOP SHAWNA Administration Celecoxib 200 mg 07/20/23 06:00 07/20/23 10:54 Celecoxib 200 Mg Cap PO 07/20/23 23:59 200 mg PREOP SHAWNA Administration Gabapentin 600 mg 07/20/23 06:00 07/20/23 10:53 Gabapentin 300 Mg Cap PO 07/20/23 23:59 600 mg PREOP SHAWNA Administration Hydromorphone HCl 0.2 mg 07/19/23 15:53 Hydromorphone 2 Mg/Ml Syr IVP 08/18/23 15:52 Q1H PRN PRN Ringer's Solution 1,000 mls @ 80 mls/hr 07/20/23 06:00 07/20/23 10:54 IV 07/20/23 23:59 80 mls/hr INFUSION SHWANA Administration Cefazolin Sodium/Dextrose 2 gm in 50 mls @ 100 mls/hr 07/20/23 06:00 Ancef Duplex IVPB 07/20/23 23:59 PREOP SHAWNA IV Miscellaneous Supplies 1 each 07/20/23 06:00 Iv Access IV 07/20/23 23:59 DIRECTED SHAWNA Sodium Chloride 0 ml 07/20/23 06:00 Normal Saline Flush 10 Ml Syr IV 07/20/23 23:59 PRN PRN Sodium Chloride 0 ml 07/20/23 06:00 Normal Saline 10 Ml Vial IJ 07/20/23 23:59 DIRECTED PRN Sterile Water 0 ml 07/20/23 06:00 Water,Injection,Sterile 10 Ml Vial IJ 07/20/23 23:59 DIRECTED PRN Tramadol HCl 100 mg 07/19/23 15:53 Tramadol 50 Mg Tab PO 08/18/23 15:52 Q6H PRN PRN Pain PFSH Active Problems Active Problems: Problem Status Onset Code Pain of left thumb M79.645 Alcohol abuse F10.10 COVID-19 ~07/2021 U07.1 Left carpal tunnel syndrome G56.02 Normal colonoscopy ~05/2021 Cubital tunnel syndrome on left G56.22 Bilateral carpal tunnel syndrome G56.03 Screening for colon cancer Z12.11 Hip pain, right M25.551 Neck pain on right side M54.2 Erectile 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 N52.1 Essential hypertension with goal blood pressure less than 130/80 I10 Depressed bipolar I disorder 09/11/07 F31.9 Depressive disorder 06/20/07 F32.9 Schizophrenia 09/11/07 F20.9 Medical History Medical History Carpal tunnel syndrome on left Skin lesion of neck Knee pain, left Cardiac arrhythmia, unspecified (06/20/07) Pt. states the arrhythmia was a result of a medication he was on Complete tear of right rotator cuff (07/28/16) Contact dermatitis (06/20/07) Medial epicondylitis, left elbow (05/25/17) Olecranon bursitis, left elbow (05/25/17) Sleep disturbance, unspecified (06/20/07) Umbilical hernia (05/22/13) Depressed bipolar disorder Schizophrenia Essential hypertension Surgical History Surgical History S/P cubital tunnel release left History of carpal tunnel surgery of left wrist History of colonoscopy (~05/2021) Hx of shoulder surgery Status post arthroscopy of left knee (08/19/19) Status post medial and lateral partial meniscectomies History of local excision of skin lesion left side of neck Jul 2019 UPPP (Uvulopalatopharyngoplasty) Incision, Tendon Sheath right rotator cuff repair and biceps tendosis. Removal of foreign body from eye Tobacco Smoking/Tobacco Use Status: Current every day Tobacco Type: smokeless tobacco Smokeless tobacco user: chewing tobacco Second hand exposure: Yes Alcohol Alcohol Intake: current Alcohol intake frequency: a few times a week Alcohol type: beer Counseling provided: provider counseling and reduce to 2 or less/day Substance Use Substance use: Never Substance use type: does not use Vital Signs and Lab Results Vital Signs Most Recent Vital Signs in EMR: Most Recent Vital Signs Temp Pulse Resp BP Pulse Ox 36.6 C 81 20 156/101 H 96 07/20/23 10:25 07/20/23 10:25 07/20/23 10:25 07/20/23 10:25 07/20/23 10:25 Lab Results Blood Type / Crossmatch: No Data to Display Complete Blood Count: No Data to Display Complete Metabolic Panel: No Data to Display Liver Function Panel: No Data to Display Coagulation Panel: No Data to Display Cardiac Panel: No Data to Display Arterial Blood Gas: No Data to Display Venous Blood Gas: No Data to Display Pancreas Panel: No Data to Display Thyroid Panel: No Data to Display Infectious Disease: No Data to Display Blood Cultures: No Data to Display Toxicology Panel: No Data to Display Imaging and Studies Imaging and Studies Study information below may be from another EMR and interpreted by another provider. Please see original notes in EMR for more complete details. EKG Summary: DATE/TIME OF SERVICE: 08/02/21537 : 1970 PERFORMING LOCATION: ER APPROVED REPORT Exam: Resting ECG Reason for Exam: shortness of breath Patient Location: E HR:67 bpm ECG Measurements Heart Rate 67 AXIS MN 153 P 14 QRSd 90 QRS 26 QT 436 T38 QTc 462 Conclusion Sinus rhythm...normal P axis, V-rate 60- 99 Stress Test Summary: 1. Myocardial perfusion imaging: No myocardial perfusion defects noted. 2. The calculated left ventricular ejection fraction after stress: 55%. LV global systolic function is normal. No left ventricular regional motion abnormality. 3. Stress ECG conclusions: The stress ECG is negative. Patel treadmill score: 10. This score predicts a low risk of cardiac events. 4. Stress: The target heart rate was achieved. The heart rate response to stress is normal. There is a normal resting blood pressure with a hypertensive response to stress (peak SBP 256 mmHg). The patient experienced no chest pain during stress. Exercise capacity is average for age. Anesthesia Assessment and Plan Anesthesia History Personal History: No History of Anesthesia Complications Family History: No Family History of Anesthesia Complications Exercise Tolerance Exercise Tolerance: Metabolic Equivalents>4 Pertinent Negatives Pertinent Negatives: No Symptoms of GERD, No Major Cardiovascular Symptoms or C omplaints and No Major Pulmonary Symptoms or Complaints Cardiac & Pulmonary Exam Cardiac Exam: Normal S1/S2 Heart Sounds Pulmonary Exam: Clear Bilateral Breath Sounds Implantable Cardiac Device Does patient have a Pacemaker or an ICD?: No Airway Exam Known Difficult Airway: No Mallampati Class: 1 Mouth Opening: Normal (> 3cm) Thyromental Distance: Greater than 3 cm Neck Range of Motion: Full ROM Neck Circumference: Normal Teeth Condition: Normal Dentition ASA Classification ASA Score: ASA 2 Emergency Case?: No NPO Status NPO Status: NPO Clears >2 hours, Solids >8 hours Anesthesia Plan Resuscitation Status: Full Code Anesthesia Technique: General Anesthesia Airway Planned: LMA Pain Management: Surgeon and patient request nerve block Monitors Used: Standard Monitors
[2023-07-20] MEDS: ceFAZolin 2 GM/50 ML BAG IVPB (13:55)
[2023-07-20] MEDS: Bupivacaine LIPOSOME/PF 133 MG/10 ML VIAL IJ (14:04)
--- NOTE | 2023-07-20 15:05 | W.ANESPOSTOP ---
Postoperative Evaluation Date, Time and Location Date Performed: 07/20/23 Time Performed: 15:05 Patient Location: PACU Vital Signs Most Recent Imported Vital Signs: Most Recent Vital Signs Temp Pulse Resp BP Pulse Ox 36.8 C 61 21 88/62 L 97 07/20/23 14:55 07/20/23 14:55 07/20/23 14:55 07/20/23 14:55 07/20/23 14:55 Assessment Mental Status: Arousable with meaningful communication Airway and Respiratory Function: Patent airway with normal (patient baseline) respiratory exam Cardiovascular Function: Hemodynamically Stable Hydration Status: Adequately Hydrated Nausea & Vomiting: No Nausea or Vomiting Pain: Pt. Denies Any Pain Peripheral Nerve Block: Patient did not receive a nerve block
[2023-07-20] MEDS: traMADol 50 MG TAB 100 MG PO (15:56)
== END 2023-07-20 16:50 | disposition home or self-care (01) ==
LOC: SUR 10:18
PROVIDERS: PCP Family Medicine; Visit Provider Surgery
PROC: (CPT 49593; principal; 2023-07-20 12:00)
DX: K42.9 Umbilical hernia without obstruction or gangrene (principal)
CPT/HCPCS: 49593; C1781; C9290; J0690; J1100; J2001; J2250; J2405; J2704

== ENCOUNTER 2023-08-10 07:00 | Day surgery (SDC) | payer MEDICAID, SELFPAY ==
--- NOTE | 2023-08-09 16:23 | HPE_ITS ---
Assessment and Plan Assessment and plan (1) Recurrent abdominal hernia: Status: Acute Assessment and plan: Given Clyde's recent experience with his failed umbilical hernia repair, at this point, I think a laparoscopic approach is probably his best option at this point. We talked about the nature of that operation, and what to expect in terms of recovery. I did explain that this surgery may be a little more painful compared to his first, especially if experiences discomfort associated with the laparoscopic tacks. I also explained the possibility of a seroma superficial to the mesh. But given his failed first attempt, I think this is the best option. History of Present Illness History of Present Illness Chief Complaint: Recurrent umbilical hernia Narrative: Tyler is 53 years old, and he underwent open umbilical herniorrhaphy with mesh about 3 weeks ago. Unfortunately, during his recovery, he slipped on the ice, and fell to the ground. He had abdominal pain after that, and during his follow-up office visit was noted to have what felt like a recurrent umbilical hernia. He is here for redo hernia repair PFSH All Active Problems (Updated 08/10/23 @ 09:15 by Philip Lundberg MD) Recurrent abdominal hernia (Acute) Pain of left thumb (Acute) Alcohol abuse (Chronic) COVID-19 (Acute ~07/2021) Left carpal tunnel syndrome (Acute) Normal colonoscopy (Acute ~05/2021) Cubital tunnel syndrome on left (Acute) Bilateral carpal tunnel syndrome (Acute) Screening for colon cancer (Acute) Hip pain, right (Acute) Neck pain on right side (Acute) Erectile 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 (Acute) prn sildenafil--discussed ADRs including persistent erection Essential hypertension with goal blood pressure less than 130/80 (Acute) stop lisinopril start diltiazem Depressed bipolar I disorder (Chronic 09/11/07) Depressive disorder (Chronic 06/20/07) Schizophrenia (Chronic 09/11/07) Medical History Carpal tunnel syndrome on left Skin lesion of neck Knee pain, left Cardiac arrhythmia, unspecified (06/20/07) Pt. states the arrhythmia was a result of a medication he was on Complete tear of right rotator cuff (07/28/16) Contact dermatitis (06/20/07) Medial epicondylitis, left elbow (05/25/17) Olecranon bursitis, left elbow (05/25/17) Sleep disturbance, unspecified (06/20/07) Depressed bipolar disorder Schizophrenia Essential hypertension Surgical History Umbilical hernia (07/20/23) S/P cubital tunnel release left History of carpal tunnel surgery of left wrist History of colonoscopy (~05/2021) Hx of shoulder surgery Status post arthroscopy of left knee (08/19/19) Status post medial and lateral partial meniscectomies History of local excision of skin lesion left side of neck Jul 2019 UPPP (Uvulopalatopharyngoplasty) Incision, Tendon Sheath right rotator cuff repair and biceps tendosis. Removal of foreign body from eye Family History Mother Alcohol abuse Father Depression Sister No problems noted. Sister Alcohol abuse Maternal Grandfather Alcohol abuse Paternal Grandfather No problems noted. Maternal Grandmother Diabetes Alcohol abuse Paternal Grandmother No problems noted. Social History Smoking/Tobacco Use Status: Current every day Tobacco Type: smokeless tobacco Smokeless tobacco user: chewing tobacco Quit status: has quit before Second Hand Exposure: Yes Smoking risk assessment performed?: Yes Alcohol Intake: current Alcohol Intake frequency: a few times a week Alcohol type: beer Counseling given: Yes Counseling provided: provider counseling and reduce to 2 or less/day Drug use: Never Substance use type: does not use Details: Last chew was 08/09/23 @ 2300 Caregiver/Support person: No Household members: spouse and children Housing: house Communication Needs: None Do you need help understanding health information?: Never Pets and animals: Yes Pets and animals: dog(s) Sexually active: Yes Do you think of yourself as: straight/heterosexual Current gender identity: male What is your relationship status?: How often do you talk on the phone with friends or family?: three or more times per week How often do you get together with friends or relatives?: once per week How often do you attend pentecostalism or voodoo services?: 1-3 times per year Do you belong to any clubs or organized social groups?: no Panel score (0-1 are the most socially isolated patients): 2 What type of physical activity do you participate in: walking Duration: > 90 minutes/day Frequency: daily Gypsy/Holiness: Tenriism Special gypsy needs: No Seatbelt use: never Helmet use: No 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 Do you feel safe at home: Yes Do you feel safe in your relationship?: Yes Meds Allergies and Home Medications Allergies Allergy/AdvReac Type Severity Reaction Status Date / Time mirtazapine AdvReac Severe PROFOUND Verified 08/10/23 07:07 BRADYCARDIA Home Medications Medication Instructions Recorded Confirmed Type ibuprofen 600 mg tablet 600 mg PO TID PRN pain #60 tabs 07/20/21 08/10/23 Rx diltiazem HCl 240 mg capsule,24 240 mg PO DAILY #90 caps 10/18/22 08/10/23 Rx hr,extended release sildenafil (pulm.hypertension) 20 20 - 100 mg (1 - 5 x 20 mg) PO 10/18/22 08/10/23 Rx mg tablet DAILY PRN sexual activity #90 tabs citalopram 40 mg tablet 40 mg PO DAILY #90 tabs 04/27/23 08/10/23 Rx nicotine 14 mg/24 hr daily 1 patch transdermal DAILY #7 ea 08/07/23 08/10/23 Rx transdermal patch Exam Const General: cooperative, healthy appearing and not in acute distress Neck Neck: normal visual inspection, no lymphadenopathy and supple Thyroid: thyroid normal Resp Effort & Inspection: normal respiratory effort Auscultation: clear to auscultation bilaterally Cardio Jugular venous pressure: no JVD Rate: regular rate Rhythm: regular rhythm Heart Sounds: S1 normal and S2 normal GI Inspection: normal to inspection Palpation: soft, no guarding and nontender Percussion: normal to percussion Auscultation: normal bowel sounds Other: The old hernias incision site is healed nicely, but there is a little bit of fascial edge that is obvious across the lower margin. Contents are reducible. Neuro General: patient alert, patient awake and patient oriented x3 Psych Appearance: grossly normal
--- NOTE | 2023-08-09 16:24 | ROE_ITS ---
Date of service: 08/10/23 Time of Service: 11:21 Operative Note Operative Note DATE OF PROCEDURE: 08/10/23 PRE-OP DIAGNOSIS: Recurrent umbilical hernia POST-OP DIAGNOSIS: same PROCEDURE: Laparoscopic umbilical herniorrhaphy with mesh SURGEON: Philip Lundberg WELDER FITTER APPRENTICE: Sierra Franco ANESTHESIA TYPE: General LMA/ETT Refer to Anesthesia Record ESTIMATED BLOOD LOSS: 25 COMPLICATIONS: None Patient was transported to: PACU Patient's condition: stable Implants: 11.[address] mesh, 15.[address] mesh Indications: Tyler is 53 years old, and his past medical history of an umbilical hernia. We attempted repair of this by way of an open approach. Unfortunately, during his recovery, he did sustain a slip and fall, with recurrent umbilical pain, and a slight protrusion towards the inferior right margin. This seemed consistent with a recurrent hernia. We talked about the risks and benefits of operative repair, and I explained that I thought a laparoscopic approach might offer more durable and definitive solution. He is in agreement. Findings: Attenuated, but apparently intact fascia on the inferior right margin of the previous umbilical hernia repair. Procedure Description: After the induction of general endotracheal anesthesia, and the aseptic insertion of a Valle urinary catheter, I prepped and draped the anterior abdominal wall in the usual fashion. Great care was taken to cleanse his previous hernia surgical site. It all looked quite clean, nicely healed, and I had no concerns of contamination or new infection. Next, in the left upper quadrant Villegas's point, using a 5 mm optical viewing trocar, I gained entry into the peritoneal cavity under the direct vision of the laparoscope. I insufflated the peritoneal cavity. Next, with the assistance of the laparoscope, I placed another 5 mm port in the midportion of the left hemiabdomen. I then moved the camera to this location, and upsized the port in the left upper quadrant to a 12 mm. Next, I placed another 5 mm port in the left lower quadrant. I carefully examined the anterior abdominal wall. There were some adhesions of some omentum up onto the underside of the previous umbil ical hernia mesh that were quite easily dissected free. The underlying viscera appeared totally normal. I carefully examined around the previous mesh. Largely this appeared intact. I did not see any discrete hernia defect. However, the fascia along the inferior right side, appeared quite attenuated. There also appeared to be some thinning towards the upper margin of the previous hernia mesh. Therefore, I thought it would be very reasonable to proceed with reinforcing all of this area with an intraperitoneal mesh. There was also some visceral fat adherent to the inferior midline peritoneum. This was carefully dissected free. Dissection also carried out along the midline in a cephalad manner dividing the obliterated umbilical ligament up to the falciform ligament with the area totally clean, I turned my attention to selection of the mesh. Using a sounding needle, care was taken to measure appropriate sizing in an effort to place a single mesh that would overlie and seal the umbilical area. I selected 11.4 cm mesh, and advanced it through the 12 mm port into the peritoneal cavity according to the outreach assistant's instructions. The mesh was oriented appropriately and laid flat. At this point, it was clear that the round nature of the mesh would most likely be insufficient to reinforce the anterior abdominal wall in the areas of concern. Therefore, it was obvious that it would actually require to mesh sections to appropriately reconstruct reinforce the anterior abdominal wall. Therefore, I selected a place slightly cephalad to the umbilicus, and deployed the echo device to appropriately set the mesh against the anterior abdominal wall. Next, using an absorbable tack device, I secured it up to the anterior abdominal wall. Great care was taken to appropriately space the tacks to minimize patient discomfort, but prevent any likelihood of herniation of any visceral up and around the mesh. There was excellent coverage of the mid upper abdomen obliterating the area of concern adjacent to the previously placed umbilical hernia mesh. Once this was seated, the echo device was removed, and I situated a 15.2 cm circular mesh along the inferior midline to allow appropriate coverage here. This was also delivered through the left upper quadrant 12 mm port again, according to the outreach assistant's instructions. It was brought up to the anterior abdominal wall w ith the assistance of a Ethan Mix device, and secured in place using absorbable tacks as mentioned above. With this complete, the scope was used to carefully examine all of the mesh. It all laid quite flat and nice. There was excellent coverage out along the lateral margin of the rectus sheath to what appeared to be normal healthy tissue. Next, with the assistance of the laparoscope, I performed bilateral tap blocks. With this complete, the 5 mm ports were removed under the vision of the scope. They were hemostatic. The 12 mm port was also removed, the fascia was closed with an 0 Vicryl suture. The sites were irrigated clean, and the skin was closed with interrupted subcuticular stitches prior to the application of bandages. The Valle catheter was removed, the patient was extubated and transferred to the recovery unit.
[2023-08-10] VITALS (11 sets, daily range): BP systolic 115–167; BP diastolic 50–103; PULSE 68–84; RESP 12–26; TEMP 36.5–36.6; O2SAT 91–96; BMI 37.3
--- NOTE | 2023-08-10 06:26 | W.ANESPRE ---
General Info Date of Service Date Performed: 08/10/23 Height: 6 ft Weight: 124.738 kg Body Mass Index (BMI): 37.3 Surgical Procedure: Operation Date: 08/10/23 08:40 Proposed Procedure Side Surgeon p Hernia Ventral Laparoscopic w/Mesh Philip Lundberg MD Meds Allergies and Home Medications Allergies Allergy/AdvReac Type Severity Reaction Status Date / Time mirtazapine AdvReac Severe PROFOUND Verified 08/10/23 07:07 BRADYCARDIA Home Medication Medication Instructions Recorded ibuprofen 600 mg tablet 600 mg PO TID PRN pain #60 tabs 07/20/21 diltiazem HCl 240 mg capsule,24 240 mg PO DAILY #90 caps 10/18/22 hr,extended release sildenafil (pulm.hypertension) 20 20 - 100 mg (1 - 5 x 20 mg) PO 10/18/22 mg tablet DAILY PRN sexual activity #90 tabs citalopram 40 mg tablet 40 mg PO DAILY #90 tabs 04/27/23 nicotine 14 mg/24 hr daily 1 patch transdermal DAILY #7 ea 08/07/23 transdermal patch Current Visit Medications: Current Medications Generic Name Dose Route Start Last Admin Trade Name Freq PRN Reason Stop Dose Admin Hydromorphone HCl 0.2 mg 08/09/23 16:24 Hydromorphone 2 Mg/Ml Syr IVP 09/08/23 16:23 Q1H PRN PRN Ringer's Solution 1,000 mls @ 80 mls/hr 08/10/23 06:00 IV 08/10/23 23:59 INFUSION SHAWNA IV Miscellaneous Supplies 1 each 08/10/23 06:00 Iv Access IV 08/10/23 23:59 DIRECTED SHAWNA Sodium Chloride 0 ml 08/10/23 06:00 Normal Saline Flush 10 Ml Syr IV 08/10/23 23:59 PRN PRN Sodium Chloride 0 ml 08/10/23 06:00 Normal Saline 10 Ml Vial IJ 08/10/23 23:59 DIRECTED PRN Sterile Water 0 ml 08/10/23 06:00 Water,Injection,Sterile 10 Ml Vial IJ 08/10/23 23:59 DIRECTED PRN Tramadol HCl 100 mg 08/09/23 16:24 Tramadol 50 Mg Tab PO 09/08/23 16:23 Q6H PRN PRN Pain PFSH Active Problems Active Problems: Problem Status Onset Code Pain of left thumb M79.645 Alcohol abuse F10.10 COVID-19 ~07/2021 U07.1 Left carpal tunnel syndrome G56.02 Normal colonoscopy ~05/2021 Cubital tunnel syndrome on left G56.22 Bilateral carpal tunnel syndrome G56.03 Screening for colon cancer Z12.11 Hip pain, right M25.551 Neck pain on right side M54.2 Erectile 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 N52.1 Essential hypertension with goal blood pressure less than 130/80 I10 Depressed bipolar I disorder 09/11/07 F31.9 Depressive disorder 06/20/07 F32.9 Schizophrenia 09/11/07 F20.9 Medical History Medical History Carpal tunnel syndrome on left Skin lesion of neck Knee pain, left Cardiac arrhythmia, unspecified (06/20/07) Pt. states the arrhythmia was a result of a medication he was on Complete tear of right rotator cuff (07/28/16) Contact dermatitis (06/20/07) Medial epicondylitis, left elbow (05/25/17) Olecranon bursitis, left elbow (05/25/17) Sleep disturbance, unspecified (06/20/07) Depressed bipolar disorder Schizophrenia Essential hypertension Surgical History Surgical History Umbilical hernia (07/20/23) S/P cubital tunnel release left History of carpal tunnel surgery of left wrist History of colonoscopy (~05/2021) Hx of shoulder surgery Status post arthroscopy of left knee (08/19/19) Status post medial and lateral partial meniscectomies History of local excision of skin lesion left side of neck Jul 2019 UPPP (Uvulopalatopharyngoplasty) Incision, Tendon Sheath right rotator cuff repair and biceps tendosis. Removal of foreign body from eye Tobacco Smoking/Tobacco Use Status: Current every day Tobacco Type: smokeless tobacco Smokeless tobacco user: chewing tobacco Second hand exposure: Yes Alcohol Alcohol Intake: current Alcohol intake frequency: a few times a week Alcohol type: beer Counseling provided: provider counseling and reduce to 2 or less/day Substance Use Substance use: Never Substance use type: does not use Vital Signs and Lab Results Lab Results Blood Type / Crossmatch: No Data to Display Complete Blood Count: No Data to Display Complete Metabolic Panel: No Data to Display Liver Function Panel: No Data to Display Coagulation Panel: No Data to Display Cardiac Panel: No Data to Display Arterial Blood Gas: No Data to Display Venous Blood Gas: No Data to Display Pancreas Panel: No Data to Display Thyroid Panel: No Data to Display Infectious Disease: No Data to Display Blood Cultures: No Data to Display Toxicology Panel: No Data to Display Imaging and Studies Imaging and Studies Study information below may be from another EMR and interpreted by another provider. Please see original notes in EMR for more complete details. EKG Summary: DATE/TIME OF SERVICE: 08/02/21 0538 : 1970 PERFORMING LOCATION: ER APPROVED REPORT Exam: Resting ECG Reason for Exam: shortness of breath Patient Location: E HR:67 bpm ECG Measurements Heart Rate 67 AXIS HI 153 P 14 QRSd 90 QRS 26 QT 436 T38 QTc 462 Conclusion Sinus rhythm...normal P axis, V-rate 60- 99 Stress Test Summary: 1. Myocardial perfusion imaging: No myocardial perfusion defects noted. 2. The calculated left ventricular ejection fraction after stress: 55%. LV global systolic function is normal. No left ventricular regional motion abnormality. 3. Stress ECG conclusions: The stress ECG is negative. Patel treadmill score: 10. This score predicts a low risk of cardiac events. 4. Stress: The target heart rate was achieved. The heart rate response to stress is normal. There is a normal resting blood pressure with a hypertensive response to stress (peak SBP 256 mmHg). The patient experienced no chest pain during stress. Exercise capacity is average for age. Other Study Summary:: CT chest and c spine xray reviewed. results in chart Anesthesia Assessment and Plan Anesthesia History Personal History: No History of Anesthesia Complications Family History: No Family History of Anesthesia Complications Exercise Tolerance Exercise Tolerance: Metabolic Equivalents>4 Pertinent Negatives Pertinent Negatives: No Symptoms of GERD, No Major Cardiovascular Symptoms or Complaints, No Major Pulmonary Symptoms or Complaints and No History of CVA/TIA Cardiac & Pulmonary Exam Cardiac Exam: Normal S1/S2 Heart Sounds Pulmonary Exam: Clear Bilateral Breath Sounds Implantable Cardiac Device Does patient have a Pacemaker or an ICD?: No Airway Exam Known Difficult Airway: No Mallampati Class: 2 Mouth Opening: Normal (> 3cm) Thyromental Distance: Greater than 3 cm Neck Range of Motion: Full ROM (pt reports some numbness in right hand fingers with use but no s/s of radiculopathy with neck flexion or extension) Neck Circumference: Normal Teeth Condition: Normal Dentition ASA Classification ASA Score: ASA 3 Emergency Case?: No NPO Status NPO Status: NPO Clears >2 hours, Solids >8 hours Anesthesia Plan Resuscitation Status: Full Code Anesthesia Technique: General Anesthesia Airway Planned: Endotracheal Tube Monitors Used: Standard Monitors and SedLine
[2023-08-10] MEDS: Lactated Ringers 1,000 ML 80 ML IV (07:37)
[2023-08-10] MEDS: Gabapentin 300 MG CAP 600 MG PO (08:04)
[2023-08-10] MEDS: Acetaminophen 500 MG TAB 1000 MG PO (08:05)
[2023-08-10] MEDS: Celecoxib 200 MG CAP PO (08:05)
[2023-08-10] MEDS: ceFAZolin 2 GM/50 ML BAG IVPB (09:37)
[2023-08-10] MEDS: Bupivacaine LIPOSOME/PF 133 MG/10 ML VIAL IJ (10:58)
[2023-08-10] MEDS: Bupivacaine 0.25% Pres-Free 30 ML VIAL (10:58)
[2023-08-10] MEDS: fentaNYL 100 MCG/2 ML VIAL IVP ×2 (11:51→12:08)
--- NOTE | 2023-08-10 13:02 | W.PM.DSUDISC ---
Date of service: 08/10/23 Time of Service: 13:02 Discharge Plan Disposition Patient Disposition: Home Condition: Good Discharge Details Reason For Visit: Umbilical hernia repair Attending Provider: Philip Lundberg Primary Care Provider: Hipolito Vela Home Meds and New Rx's Prescriptions: New tramadol 50 mg tablet 50 mg PO Q8H PRNQty: 15 0RF Rx Instructions: Take 1 tablet by mouth up to every 8 hours if needed for severe pain. Continued diltiazem HCl 240 mg capsule,extended release 24 hr 240 mg PO DAILY Qty: 90 3RF sildenafil (pulm.hypertension) 20 mg tablet 20 - 100 mg PO DAILY PRN (Reason: sexual activity) Qty: 90 3RF citalopram 40 mg tablet 40 mg PO DAILY Qty: 90 3RF nicotine 14 mg/24 hr patch 24 hour 1 patch transdermal DAILY Qty: 7 0RF Rx Instructions: Use 1 patch every day for the week leading up to surgery. ibuprofen 600 mg tablet 600 mg PO TID PRN (Reason: pain) Qty: 60 0RF Discharge Instructions Additional Instructions: Tyler, it was wonderful seeing you and your again today, and I really hope that you will be back to yourself before you know it. Like we talked about, the hernia repair went great. You now have a huge shield inside of your abdomen to help reduce the likelihood of any future hernia. Just like last time, just be a little careful in the days to come. No lifting greater than 10 pounds, be careful when you are out and about. We took the liberty of making follow-up appointment on the at 1:15 PM. Please, do not hesitate to call at any point if you have any questions in the meantime. 1. Resume all of your medications. 2. Continue with heating pads and ice packs as needed for pain 3. Okay to use tylenol and ibuprofen over the counter as needed. 4. Leave bandage in place for 24 hours, then remove. 5. Shower with warm soapy water. Pat dry. Use a bandaid if needed to protect your clothing. 6. No soaking or tub baths until I see you in the office. 7. No heavy lifting until I see you in the office. 8. Call the office (or go directly to the emergency room after hours) if you notice any of the following: Develop chills (warm to touch), or if you have a thermometer and your temperature is above 101 Difficulty breathing or difficultly swallowing Persistent vomiting Any bleeding ? exceeding one tablespoon 9. Call your physician if the site where your intravenous was started becomes red, swollen, painful, and warm to touch. Referrals: Philip Lundberg MD [ [facility] STAFF PHYSICIAN] - (August 29 at 1:15 PM) Remove Dressings/Wound Care:: 24 hours Shower/Bathe:: 24 hours Diet:: As Tolerated Discharge Orders Discharge Orders: Discharge Order (Routine); Ordered 08/09/23 Ordered By: Philip Lundberg DS: Diagnosis Discharge Diagnosis (1) Recurrent abdominal hernia: Status: Acute Asessment and Plan: Outpatient routine postoperative follow-up
[2023-08-10] MEDS: traMADol 50 MG TAB 100 MG PO (13:13)
--- NOTE | 2023-08-10 13:40 | W.ANESPOSTOP ---
Postoperative Evaluation Date, Time and Location Date Performed: 08/10/23 Time Performed: 13:40 Patient Location: Day Surgery Unit Vital Signs Most Recent Imported Vital Signs: Most Recent Vital Signs Temp Pulse Resp BP Pulse Ox 36.6 C 76 18 139/84 94 08/10/23 13:02 08/10/23 13:02 08/10/23 13:02 08/10/23 13:02 08/10/23 13:02 Pain Score Most Recent Pain Score: Most Recent Pain Score Pain Level 2 08/10/23 13:02 Assessment Mental Status: Awake (Alert & Oriented to Patient Baseline) Airway and Respiratory Function: Patent airway with normal (patient baseline) respiratory exam Cardiovascular Function: Hemodynamically Stable Hydration Status: Adequately Hydrated Nausea & Vomiting: No Nausea or Vomiting Pain: Pain is tolerable per patient Peripheral Nerve Block: Patient did not receive a nerve block
== END 2023-08-10 13:38 | disposition home or self-care (01) ==
PROVIDERS: PCP Family Medicine; Visit Provider Surgery
PROC: 0WQF4ZZ Repair Abdominal Wall, Percutaneous Endoscopic Approach (ICD-10-PCS; CPT 49617; principal; 2023-08-10 08:30)
DX: K42.9 Umbilical hernia without obstruction or gangrene (principal); W00.0XXA Fall on same level due to ice and snow, initial encounter; F10.10 Alcohol abuse, uncomplicated; I10 Essential (primary) hypertension; F20.9 Schizophrenia, unspecified; F31.9 Bipolar disorder, unspecified
CPT/HCPCS: 49617; C1781; C9290; J0665; J0690; J1100; J1885; J2250; J2371; J2405; J2704; J3010